=== PATIENT | female | born 1940 | race Caucasian/White ===

== ENCOUNTER → 2017-08-30 05:00 | Outpatient (REF) | payer MEDICARE, SELFPAY | LOC: OLS.DANBUR 05:00 | PROVIDERS: Visit Provider Internal Medicine | DX: E03.9 Hypothyroidism, unspecified (principal) | CPT/HCPCS: 36415; 84443 ==

== ENCOUNTER → 2017-11-01 05:00 | Outpatient (REF) | payer MEDICARE, SELFPAY ==
[2017-11-01 09:30] LABS: Thyroid Stim Hormone (TSH) 2.76 uIU/mL (0.358-3.74)
== END ==
LOC: OLS.DANBUR 05:00
PROVIDERS: Visit Provider Internal Medicine
DX: E03.9 Hypothyroidism, unspecified (principal)
CPT/HCPCS: 36415; 84443

== ENCOUNTER → 2017-12-21 05:00 | Outpatient (REF) | payer MEDICARE, SELFPAY ==
[2017-12-21 09:11] LABS: Hematocrit 34.4 % (37-47); Hemoglobin 10.7 g/dl (12.0-15.0); Mean Corp Hgb Conc 31.1 g/gl (32-36); Mean Corpuscular Hgb 27.9 pg (27.0-32.0); Mean Corpuscular Volume 89.6 fL (81-99); Mean Platelet Vol. 11.5 fl (6.2-12.0); Platelet Count 236 K/mm3 (150-450); RBC Distribution Width CV 15.1 % (11.6-14.6); RBC Distribution Width SD 49.6 fl (35.1-43.9); Red Blood Count 3.84 M/mm3 (4.2-5.4); White Blood Count 4.9 K/mm3 (4.4-11.0)
[2017-12-21 09:19] LABS: Scan Indicated on CBC? Y/N NO
[2017-12-21 09:23] LABS: ALB/GLOB Ratio 0.7 RATIO (0.9-2.4); AST(SGOT) 12 U/L (15-37); Alanine Aminotransfer ALT/SGPT 10 U/L (13-56); Albumin, Serum 2.3 g/dL (3.2-5.0); Alkaline Phosphatase 57 U/L (45-117); Anion Gap 8 (5-15); BUN 17 mg/dL (7-18); BUN/Creat Ratio 32.8 RATIO (10-20); Calcium,Total 7.6 mg/dL (8.5-10.1); Chloride 107 mmol/L (98-107); Cholesterol 113 mg/dL (200); Creatinine, Serum 0.52 mg/dL (0.55-1.02); EST Glomerular Filtration Rate 122 mL/min (>60); Est Glom Filt Rate - Afr Amer 147 mL/min (>60); Globulin 3.3 g/dL (2.2-4.2); Glucose 67 mg/dL (74-106); High Density Lipoprotein 45 mg/dL; Potassium 4.2 mmol/L (3.5-5.1); Protein, Total 5.6 g/dL (6.4-8.2); Sodium Level 143 mmol/L (136-145); Thyroid Stim Hormone (TSH) 2.47 uIU/mL (0.358-3.74); Triglycerides 71 mg/dL; Very Low Density Lipoprotein 14 mg/dL (5-40)
== END ==
LOC: OLS.DANBUR 05:00
PROVIDERS: Visit Provider Internal Medicine
DX: I10 Essential (primary) hypertension (principal); E78.5 Hyperlipidemia, unspecified; E03.9 Hypothyroidism, unspecified
CPT/HCPCS: 36415; 80053; 80061; 84443; 85027

== ENCOUNTER → 2017-12-22 10:25 | Outpatient (REF) | payer MEDICARE, SELFPAY ==
[2017-12-22 11:43] LABS: BNP,B-Type NATRIURETIC PEPTIDE 13.2 pg/mL (0-100)
== END ==
LOC: OLS.DANBUR 10:25
PROVIDERS: Visit Provider Internal Medicine
DX: J90 Pleural effusion, not elsewhere classified (principal)
CPT/HCPCS: 36415; 83880

== ENCOUNTER → 2018-01-04 05:00 | Outpatient (REF) | payer MEDICARE, SELFPAY ==
[2018-01-04 08:21] LABS: Anion Gap 6 (5-15); BUN 24 mg/dL (7-18); BUN/Creat Ratio 39.3 RATIO (10-20); Calcium,Total 8.2 mg/dL (8.5-10.1); Chloride 104 mmol/L (98-107); Creatinine, Serum 0.61 mg/dL (0.55-1.02); EST Glomerular Filtration Rate 101 mL/min (>60); Est Glom Filt Rate - Afr Amer 122 mL/min (>60); Glucose 77 mg/dL (74-106); Potassium 3.9 mmol/L (3.5-5.1); Sodium Level 142 mmol/L (136-145)
== END ==
LOC: OLS.DANBUR 05:00
PROVIDERS: Visit Provider Internal Medicine
DX: J90 Pleural effusion, not elsewhere classified (principal)
CPT/HCPCS: 36415; 80048

== ENCOUNTER → 2018-01-10 05:00 | Outpatient (REF) | payer MEDICARE, SELFPAY ==
[2018-01-10 08:41] LABS: Albumin, Serum 2.5 g/dL (3.2-5.0)
[2018-01-10 08:52] LABS: Valproic Acid (Depakene) Level 61 ug/mL (50-100)
== END ==
LOC: OLS.DANBUR 05:00
PROVIDERS: Visit Provider Internal Medicine
DX: I10 Essential (primary) hypertension (principal); E78.5 Hyperlipidemia, unspecified; E03.9 Hypothyroidism, unspecified; F03.90 Unspecified dementia, unspecified severity, without behavioral disturbance, psychotic disturbance, mood disturbance, and anxiety
CPT/HCPCS: 36415; 80164; 82040

== ENCOUNTER → 2018-04-05 05:00 | Outpatient (REF) | payer MEDICARE, SELFPAY ==
[2018-04-05 08:23] LABS: Anion Gap 6 (5-15); BUN 21 mg/dL (7-18); Calcium,Total 8.2 mg/dL (8.5-10.1); Chloride 109 mmol/L (98-107); Creatinine, Serum 0.68 mg/dL (0.55-1.02); EST Glomerular Filtration Rate 89 mL/min (>60); Est Glom Filt Rate - Afr Amer 108 mL/min (>60); Glucose 85 mg/dL (74-106); Potassium 4.3 mmol/L (3.5-5.1); Sodium Level 145 mmol/L (136-145)
== END ==
LOC: OLS.DANBUR 05:00
PROVIDERS: Visit Provider Internal Medicine
DX: I10 Essential (primary) hypertension (principal); E78.5 Hyperlipidemia, unspecified; E03.9 Hypothyroidism, unspecified; F03.90 Unspecified dementia, unspecified severity, without behavioral disturbance, psychotic disturbance, mood disturbance, and anxiety
CPT/HCPCS: 36415; 80048

== ENCOUNTER 2018-06-27 23:27 | Inpatient (IN) | payer MEDICARE, SELFPAY ==
[2018-06-27 23:33] VITALS: BP 157/92; PULSE 87; RESP 16; TEMP 37; O2SAT 91; BMI 35.2
[2018-06-27 23:37] VITALS: O2SAT 90
[2018-06-28] VITALS (11 sets, daily range): BP systolic 107–166; BP diastolic 59–93; PULSE 71–108; RESP 16–20; TEMP 36.4–37.7; O2SAT 87–97; BMI 36.5; BMI 36.6
--- NOTE | 2018-06-28 00:09 | RAD_ITS ---
STUDY: X-RAY CHEST REASON FOR EXAM: Female, 77 years old. Shortness of breath TECHNIQUE: Single frontal view of the chest. COMPARISON: May 23, 2017. FINDINGS: No pneumothorax. No pleural effusion. Bilateral basilar atelectasis/scarring. No focal consolidation. Chronic lung changes. Normal size heart. Aortic calcifications. There are diffuse degenerative changes of the visualized thoracic spine. There is degenerative osteoarthritis of the bilateral shoulders. Old rib fractures. There is no demonstrated abnormality of the visualized soft tissue structures of the upper abdomen. RAD/Chest 1 View (Portable) IMPRESSION: Chronic lung changes. Basilar atelectasis/scarring. No focal consolidation. Electronically Signed: Eliseo Oliver, at 1:16 EDT Tel , Service support ,
--- NOTE | 2018-06-28 00:10 | EKG12_ITS ---
Test Reason : SOB Blood Pressure : / mmHG Vent. Rate : 087 BPM Atrial Rate : 087 BPM P-R Int : 192 ms QRS Dur : 070 ms QT Int : 386 ms P-R-T Axes : 039 -32 021 degrees QTc Int : 464 ms Normal sinus rhythm Left axis deviation Inferior infarct , age undetermined Abnormal ECG Confirmed by CHLOE BRIZUELA, ATUL ([id number]), research editor TANGELA CAM ([id number]) on 06/28/2018 1:37:39 PM Referred By: ESTHER Confirmed By:ATUL CORONA MD
[2018-06-28] MEDS: Ipratropium/Albuterol Sulfate 3 ML AMPUL.NEB INHALATION (00:17)
[2018-06-28 00:30] LABS: Absolute Lymphocyte Count 2.58 X10^3/ul (0.83-4.51); Absolute Neutrophil Count 3.7 X10^3/uL (2.0-7.7); Basophil# 0.04 X10^3/uL; Basophil% 0.5 % (0-1); Eosinophil# 0.48 X10^3/uL; Eosinophils% 6.2 % (0-5); Hematocrit 36.8 % (37-47); Lymphocyte # 2.58 X10^3/ul (4.0); Lymphocyte % 33.5 % (19-41); Mean Corp Hgb Conc 32.6 g/gl (32-36); Mean Corpuscular Hgb 27.8 pg (27.0-32.0); Mean Corpuscular Volume 85.2 fL (81-99); Mean Platelet Vol. 10.2 fl (6.2-12.0); Monocyte# 0.85 X10^3/uL; Neutrophil # 3.73 X10^3/uL (2.7-7.7); Neutrophil % 48.5 % (47-70); Platelet Count 244 K/mm3 (150-450); RBC Distribution Width CV 14.9 % (11.6-14.6); RBC Distribution Width SD 45.7 fl (35.1-43.9); Red Blood Count 4.32 M/mm3 (4.2-5.4); White Blood Count 7.7 K/mm3 (4.4-11.0)
[2018-06-28 00:31] LABS: POSITIVE COUNT NO; POSITIVE DIFFERENTIAL NO; POSITIVE MORPHOLOGY NO
[2018-06-28 00:50] LABS: Anion Gap 8 (5-15); BUN 23 mg/dL (7-18); BUN/Creat Ratio 19.2 RATIO (10-20); Calcium,Total 8.3 mg/dL (8.5-10.1); Chloride 103 mmol/L (98-107); EST Glomerular Filtration Rate 46 mL/min (>60); Est Glom Filt Rate - Afr Amer 56 mL/min (>60); Glucose 94 mg/dL (74-106); Potassium 4.6 mmol/L (3.5-5.1); Sodium Level 140 mmol/L (136-145)
[2018-06-28 01:10] LABS: BNP,B-Type NATRIURETIC PEPTIDE 24.2 pg/mL (0-100)
--- NOTE | 2018-06-28 01:14 | CT_ITS ---
STUDY: CTA CHEST REASON FOR EXAM: Female, 77 years old. Shortness of breath RADIATION DOSAGE (If Supplied By Facility): CTDIvol = ( 13.37 ) mGy, DLP = ( 615.75 ) mGycm TECHNIQUE: The examination was performed with the intravenous administration of 75ML ml of Isovue 370 contrast material. Post-processing of the angiographic images was performed, with multiplanar reformation and 3D reconstruction. Individualized dose optimization techniques were used for this CT. COMPARISON: None. FINDINGS: Normal enhancement of the main pulmonary artery and right and left pulmonary arteries. Normal enhancement of the bilateral peripheral pulmonary arteries. There is no demonstrated pulmonary embolism. Described disease of the aorta and branching vessels. There is moderate narrowing of the left subclavian artery. There is severe narrowing of the origin of the celiac artery. Possible median arcuate ligament syndrome. Clinical correlation is recommended. There is no demonstrated aortic dissection. Normal heart and pericardium. Coronary artery calcifications. Nonspecific subcentimeter short axis mediastinal and hilar lymph nodes. No pneumothorax. Areas of atelectasis/scarring. Small left pleural effusion and small right pleural effusion. There is adjacent atelectasis/infiltrate. No focal consolidation. No pulmonary nodules greater than 3 mm identified. There are degenerative changes of thoracic spine. Old rib fractures. There is a large hiatal hernia. CT/CTA Chest W/WO Contrast IMPRESSION: No pulmonary embolism. Atherosclerotic disease of the aorta without aneurysm or dissection. 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 Small bilateral pleural effusions with adjacent atelectasis/infiltrates. No focal consolidation. Large hiatal hernia. Other findings as above. Electronically Signed: Eliseo Oliver, at 4:22 EDT Tel , Service support ,
[2018-06-28] MEDS: MethylPREDNISolone 125 MG/2 ML Vial IV (01:58)
[2018-06-28] MEDS: DiphenhydrAMINE 50 MG/ML Syringe 25 MG IV (01:58)
--- NOTE | 2018-06-28 04:36 | ED.DCSUM_ITS ---
- ER Visit Summary Date of Service: 06/28/18 Chief Complaint: Wheezing History of Present Illness: The patient is a 77 F who presents with chief complaint of wheezing. She is a very poor informant. History from the assisted living, medics, nursing triage, and history provided to me are all inconsistent. The history provided to me was that she has had wheezing for 1 month. She denies feeling short of breath. She denies cough congestion rhinorrhea. She did note some leg swelling but states this is been unchanged for a year. The assisted living facility had reported that they heard decreased breath sounds and will concern for pleural effusion and that she had 3 + pitting edema of the right leg only. EMS had reported no edema. She had reported to EMS that she is very short of breath yet denied this to me. Physical Examination: Pulse ox initially 91% on room air vitals otherwise markable Moist mucous membranes Heart regular rate and rhythm Lungs are clear I do not appreciate rales rhonchi or wheezing I do not appreciate diminished sounds Abdomen is soft and nontender Patient does have bilateral lower extremities symmetric pitting edema Alert Test Results: EKG shows sinus rhythm at a rate of 87. Labs notable for BUN 23 creatinine 1.2. Troponin normal. BNP normal. Chest x-ray was read as chronic changes and bibasilar atelectasis versus scarring. CTA of the chest shows no evidence of pulmonary embolism there are small bilateral effusions with adjacent atelectasis or infiltrate. Emergency Department Course and Treatment: Laboratory studies were unremarkable. She has no evidence of pulmonary edema on chest x-ray and her BNP was normal. Given her limited mobility edema and hypoxia this raise concern for possible pulmonary embolism so a CTA of the chest was ordered. Patient does have a history of prior hives with IV dye so she was pretreated with IV Solu-Medrol Benadryl. CTA showed small bilateral effusions with adjacent atelectasis versus infiltrate. She does not have infectious symptoms such as productive cough fever or leukocytosis but given possible infiltrate she was covered with Rocephin and azithromycin for possible community-acquired pneumonia. She was taken off of oxygen and quickly desaturated down to 87% so I do believe she will require admission. Patient to be discussed with hospitalist and admitted. Treatment Plan: [] Disposition: Admit Impression: Hypoxia Pleural effusions Possible community acquired pneumonia This note was generated with OpenTextation software. It may contain incorrect words, spelling, and punctuation that were not noted in review of the chart prior to signing ED Disposition - Plan for ED Patient: Chief Complaint: Shortness of Breath Referrals: Ryan Schumacher MD [Primary Care Provider] -
[2018-06-28] MEDS: Ceftriaxone 1 GM/50 ML BAG IV (04:50)
--- NOTE | 2018-06-28 04:53 | ED.RN ---
THIS NURSE AND DR NGUYỄN ATTEMPTED TO TAKE PATIENT OFF OF THE 3 LITERS OF OXYGEN DUE TO THE FACT THAT THE PATIENT DOES NOT WEAR OXYGEN ON A DAILY BASIS. THE PATIENT WAS 93% ON 3 L AND WHEN TAKEN OFF THE PATIENT DROPPED TO 87% ON ROOM AIR. THE PATIENT WAS THEN PUT BACK ON THE 3 L
--- NOTE | 2018-06-28 06:03 | PCM.HP.STD ---
Problem List (1) Anemia due to blood loss Status: Inactive (2) Closed right hip fracture Status: Inactive Comment: S/P ORIF right hip on 05/25/17 (3) Fall Status: Inactive (4) Hyperparathyroidism Status: Chronic Comment: PTH is 140 on 05/25 History of Present Illness Date of Admission: 06/28/18 Chief Complaint: Low oxygen saturation ?1 day The patient is a 77 year old F skilled nursing patient with a significant history of bilateral hip replacement; dementia; bipolar; hypertension; hypothyroidism; osteoporosis; hypercholesterolemia; hyperlipidemia chronic lymphedema of legs who was brought to the emergency department because of hypoxia. Per EMS records her oxygen saturation was 81% on room air requiring non-rebreather mask. At the emergency department on room air the patient was 87% and she required oxygen by nasal cannula to maintain appropriate oxygen saturation. Reportedly patient was having wheezing at a skilled nursing. However emergency department doctor did not auscultate any wheezing on examination. As part of the workup the patient received CTPA and because of allergy to contrast she was premedicated with steroid and Benadryl. Emergency room doctor reported that skilled nursing staff heard decreased breath sounds and with concern about pleural effusion; and also patient had 3+ pitting edema of the right leg only. Patient is not forthcoming with history but she reports that she has been wheezing. Past Medical History Past Medical History (Chronic Problems): Chronic Problems Osteoarthritis (Chronic) Hypokalemia (Chronic) Hyperlipidemia (Chronic) Hyperparathyroidism (Chronic) PTH is 140 on 05/25 Insomnia (Chronic) Osteoporosis (Chronic) HTN (hypertension) (Chronic) Bipolar disorder (Chronic) Dyslipidemia (Chronic) Hypothyroidism (Chronic) Depression (Chronic) Allergies mold Allergy (Verified 05/23/17 20:25) Unknown Penicillins Allergy (Verified 05/23/17 20:25) Unknown IVP DYE Allergy (Uncoded 05/23/17 20:25) Hives Home Medications: Ambulatory Orders Medication Instructions Recorded Alendronate Sodium [Fosamax] 70 mg PO Q7D@69905/14/16 Aspirin [Aspirin, Baby] 81 mg PO DAILY@79905/14/16 Calcium Carbonate/Vitamin D3 1 each PO DAILY 05/14/16 [Calcium 600-Vit D3 200 Tablet] Furosemide [Lasix] 40 mg PO DAILY 05/14/16 Polyethylene Glycol 3350 [Miralax] 17 gm PO PRN PRN 05/14/16 Potassium Chloride [Klor-Con] 20 meq PO DAILY 05/14/16 Simvastatin [Zocor] 20 mg PO QHS 05/14/16 Vit A/Vit C/Vit E/Zinc/Copper 1 each PO DAILY 05/14/16 [Preservision Areds Softgel] traZODone [Desyrel] 50 mg PO QHS 05/14/16 Acetaminophen [Tylenol] 650 mg PO Q4H PRN PRN 03/27/17 Citalopram [Celexa] 10 mg PO DAILY 03/27/17 Olanzapine [Zyprexa Zydis] 1 tab PO DAILY 03/27/17 Levothyroxine [Synthroid] 112 mcg PO DAILY 05/23/17 Loperamide [Imodium] 2 mg PO Q2H PRN PRN 05/23/17 Magnesium Hydroxide [Milk of 30 ml PO DAILY PRN PRN 05/23/17 Magnesia] Divalproex Sodium 500 mg PO QHS 05/24/17 Omeprazole [Omeprazole] 20 mg PO DAILY 06/28/18 Surgical History: total hip arthroplasty, - - hip replacement Psychiatric History: Bipolar, Depression, - - unspecified APPETIZER PACKER History: No pertinent APPETIZER PACKER history Lives: Care Home Smoking Status: Never smoker - *Family History Maternal History Items: No pertinent history Paternal History Items: No pertinent history Review of Systems Constitutional: Denies: Chills, Fever, Weight Change HEENT: Denies: Head Aches, Sinus Congestion, Sinus Drainage Cardiovascular: Denies: Chest Pain, Palpitations Respiratory: Reports: Wheezing. Denies: Cough, Shortness of breath at rest, Sputum production Gastrointestinal: Denies: Abdominal Pain, Nausea, Vomiting Genitourinary: Denies: Dysuria Musculoskeletal: Denies: Joint Pain, Joint Tenderness Skin: Denies: Rash, Wounds Neurological: Denies: Numbness, Tingling, Focal weakness Psychiatric: Denies: Anxiety, Depression, Homicidal Ideations, Suicidal Ideations Hematologic/ Lymphatic: Denies: Easy Bruising, Easy Bleeding VTE Information - Inpt Only VTE Present on Admission: No VTE Mechan Device Prophylaxis: None VTE Pharm Prophylaxis ordered?: Yes - Physical Exam General: Alert, Oriented x3, - HEENT: Atraumatic, PERRLA, EOMI, Normocephalic Neck: Supple, No JVD, Negative Carotid Bruits Lungs: Clear to auscultation, Diminished Cardiovascular: Regular rate, No murmurs Abdomen: Bowel Sounds Present, Soft, Non Tender Extremities: No edema, Capillary Refill Less than 3 Seconds Skin: No rashes, No breakdown Musculoskeletal: No Tenderness to Palpation of Joints or Extremities Neurological: Cranial nerves II-XII grossly intact Psych/Mental Status: Normal Affect, Appropriate Vital Signs Temp Pulse Resp BP Pulse Ox 98.6 F 71 16 107/64 87 06/27/18 23:33 06/28/18 04:56 06/28/18 04:56 06/28/18 04:56 06/28/18 04:56 Assessment/Plan The patient is a 77 year old F skilled nursing patient with a significant history of dementia; bipolar; hypertension; hypothyroidism; osteoporosis; hypercholesterolemia; hyperlipidemia chronic lymphedema with hypoxia of unclear etiology. Acute hypoxemic respiratory failure. Patient presented with oxygen saturation below 90 and requiring oxygen supplementation. The etiology of her hypoxia is not clear at this point. Her BNP was only 24.2 Oxygen saturation on 2 L while at the emergency department was about 94%. Chest x-ray showed chronic lung changes. Basilar atelectasis/scarring with no focal consolidation. Her chest CT independently reviewed showed only small bilateral pleural effusion that should not be able to cause this degree of hypoxia. Echocardiogram ordered to investigate whether the patient has some degree of pulmonary hypertension. Her last echocardiogram on file was in 2014 and at that time it was unremarkable except for some mild tricuspid valve insufficiency. Albuterol as needed for shortness of breath/wheezing. The patient received a steroid at emergency department not because she was wheezing but for pretreatment before receiving IV contrast. MARY Creatinine on admission was Baseline creatinine is Lasix held. Gentle IV hydration Urinary studies ordered: Urine creatinine, urine sodium and urine urea ordered Chronic leg edema Right leg appears bigger than left. Consistent with pitting edema. No further tests ordered at this time. Hypothyroidism Synthroid continued Bipolar Divalproex continued Olanzapine and Celexa continued Osteoporosis Alendronate held while inpatient. Continue on discharge Calcium carbonate with vitamin D continued Hyperlipidemia Statin continued DVT prophylaxis with subcutaneous heparin Code Visit Inpatient E&M: 47752 Init Hosp L3
--- NOTE | 2018-06-28 06:12 | NURSING ---
Whitney Lara called to check on pt. I believe nurse's name was Nilda. Advised that pt was just now getting admitted for hypoxia. She advised that they sent the pt in the ER around 2300.
--- NOTE | 2018-06-28 07:03 | ECHOD_ITS ---
Reason For Study: Hypoxia Procedure This was a 2D Doppler, Color Flow transthoracic echocardiogram. Technically difficult study, patient had a difficult time staying on her left side for testing. Exam performed portable in patient room. Left Ventricle Normal LV size. Moderate concentric left ventricular hypertrophy. Left ventricular systolic function is normal. The estimated ejection fraction is 65 %. No regional wall motion abnormalities noted. Right Ventricle Normal RV size. Normal systolic function. Atria Normal left atrium. Normal right atrium. Mitral Valve Normal mitral valve. Tricuspid Valve Normal tricuspid valve. Mild tricuspid valve insufficiency. Aortic Valve Trisinus/trileaflet aortic valve. Pulmonic Valve Normal pulmonic valve. Great Vessels Normal aortic root. The pulmonary artery is normal size. Normal inferior vena cava. Pericardium/Pleural No pericardial effusion. MMode/2D Measurements & Calculations LVIDd: 3.2 cm IVSd: 1.5 cm Ao root diam: 3.4 cm LVIDs: 2.0 cm LVPWd: 1.3 cm LA dimension: 3.2 cm FS: 38.0 % Doppler Measurements & Calculations Ao V2 max: 169.5 cm/sec LV V1 max: 141.4 cm/sec PA V2 max: 150.2 cm/sec Ao max P.5 mmHg LV V1 max P.0 mmHg Ao V2 mean: 120.0 cm/sec LV V1 mean P.4 mmHg Ao mean P.5 mmHg LV V1 mean: 98.0 cm/sec Ao V2 VTI: 32.5 cm LV V1 VTI: 26.2 cm Interpretation Summary Normal LV size. Moderate concentric left ventricular hypertrophy. Left ventricular systolic function is normal. The estimated ejection fraction is 65 %. Mild tricuspid valve insufficiency. Compared to prior study, there is no significant change. Ordering Physician: Nahid López Referring Physician: Ryan Schumacher Performed By: Gary Tavera RCS
[2018-06-28] MEDS: 0.9% Normal Saline 1,000 ML 75 ML IV ×2 (08:15→21:12)
[2018-06-28] MEDS: Levothyroxine 112 MCG Tablet PO (08:30)
[2018-06-28] MEDS: Calcium Carb/Vitamin D 1 TABLET Tablet PO (08:32)
[2018-06-28] MEDS: Aspirin 81 MG TAB.CHEW PO (08:32)
[2018-06-28 08:59] LABS: Urine Sodium 24 mmol/L (Not Establ.)
[2018-06-28 09:04] LABS: Urea Nitrogen, Urine 619 mg/dL (NO RANGE EST.)
--- NOTE | 2018-06-28 09:33 | CASEMGMT ---
RN CM Note: Pt presented to ER with hypoxia, wheezing. Pt presently on 3L NC, wears 2L NC @ Assisted Living. SW referral for dc planning to ANAID Barnes regarding ability to return to Assisted living vs needing higher level of care. PT/OT ordered, evaluations pending. Zeferino KERNSN RN ACM
--- NOTE | 2018-06-28 09:34 | CASEMGMT ---
Social Work Note Pt is listed as being from [facility]. SW in to speak with pt and pt's niece Shani who is HCPOA for pt. Pt has history of dementia. Shani confirms that pt is from [facility] and the plan is for pt to return there at discharge. Shani states that she is going out of town today and will be back Monday. Shani provided additional contact information for pt's other niece Jacki Hair who according to Shani is also HCPOA for pt. SW witness pt give permission for [facility] to call Jacki Bellamy in the event Shani can't be reached or can't make it to [facility]. Jacki Bellamy # [phone]. Green sheet on chart. Plan: Pt to return to [facility] when medically cleared Claudia Johnson WARP TESTER, SLAB POLISHER
[2018-06-28 10:41] LABS: Allen Test POS; Base Excess 7 mmol/L (-2 to +2); Bicarbonate 30.6 mmol/L (22-26); Blood Gas Specimen Type ART; O2 Delivery Device Nasal Can; PO2 70 mmHG (75-100); SITE L Radial; SO2 95 % (95-99); Time Given 1035; Total Carbon Dioxide 32 mmol/L; pCO2 42.8 mmHg (35-45); pH 7.46 (7.35-7.45)
[2018-06-28] MEDS: Citalopram 10 MG Tablet PO (11:03)
[2018-06-28] MEDS: Pantoprazole Sodium 20 MG Tablet PO (11:03)
[2018-06-28] MEDS: OLANZapine 5 MG/TAB TAB.RAPDIS PO (11:03)
[2018-06-28] MEDS: Heparin Injection (Vial) 5,000 UNIT/ML VIAL 5000 UNIT SC ×2 (11:04→21:12)
--- NOTE | 2018-06-28 11:50 | PCM.PROGNOTE ---
Subjective: Pleasantly confused. POA at bedside. Still requires O2. Per POA pt does not appear different than normal. Does not use o2 normally. No SOB. No Cough. No fevers or chills. POA agreeable to either DC or keeping overnight. Chronic edema somewhat worse than normal, but POA feels this is 2/2 [place] not wrapping the legs appropriately. - Physical Exam General: Alert, Oriented x3, Cooperative HEENT: Atraumatic, PERRLA, EOMI, Normocephalic Neck: Supple, No JVD, Negative Carotid Bruits Lungs: Clear to auscultation, Diminished Cardiovascular: Regular rate, No murmurs Abdomen: Bowel Sounds Present, Soft, Non Tender Extremities: Capillary Refill Less than 3 Seconds, Edema - 2-3 + pitting edema. Skin: No rashes, No breakdown Musculoskeletal: No Tenderness to Palpation of Joints or Extremities Neurological: Cranial nerves II-XII grossly intact Psych/Mental Status: Normal Affect, Appropriate Vital Signs Temp Pulse Resp BP Pulse Ox 98.5 F 90 20 H 166/93 H 91 06/28/18 06:28 06/28/18 06:28 06/28/18 06:28 06/28/18 06:28 06/28/18 10:15 Oxygen Flow Rate (L/min) 3 Oxygen Delivery Method Nasal Cannula Weight: 187 lb 2.759 oz Body Mass Index (BMI) 36.5 Laboratory Tests Past 24 Hrs 06/28/18 06/28/18 06/28/18 08:30 08:30 08:30 Specimen Type Sample Site pH Bicarbonate Actual POC Total CO2 Base Excess O2 Saturation ABG pCO2 ABG pO2 Rao Test O2 Delivery Device Liter Flow Blood Gas Notified Whom Blood Gas Notified Time Ur Random Sodium 24 Urine Creatinine 99.60 Urine Urea Nitrogen 619 06/28/18 10:36 Specimen Type ART Sample Site L Radial pH 7.46 H Bicarbonate Actual 30.6 H POC Total CO2 32 Base Excess 7 H O2 Saturation 95 ABG pCO2 42.8 ABG pO2 70 L Rao Test POS O2 Delivery Device Nasal Can Liter Flow 3.0 Blood Gas Notified Whom [facility] Blood Gas Notified Time 1035 Ur Random Sodium Urine Creatinine Urine Urea Nitrogen Medical Necessity - Tobacco Use Smoking Status: Never smoker Assessment/Plan 1. Acute hypoxia - likely atelectasis. No infectious etiology suspected. CTA atelectasis / small pl effusions. BNP normal. No leukocytosis or fever. No subjective cough or SOB. Resp panel pending. -IS, duonebs q6hWA -pt bedbound and with declining function 2/2 dementia x3 years -DNC -Will need o2 at assisted living. 2. Debility, bedbound, recent hip fx and repair. Continue ptot, but pt bedbound and unlikely to change. 3. Dementia - function decline. Pt hospice appropriate. 4. HTN - stable 5. Bipolar - continue home meds 6. Hypothyroid - synthroid 7. HLD - statin DVT ppx: heparin DC planning: back to [place] when appropriate. This patient was seen by Ruiz Mathur PA-C under the supervision of Doctor Morley.
--- NOTE | 2018-06-28 12:00 | PN_ITS ---
Subjective: Pleasantly confused. POA at bedside. Still requires O2. Per POA pt does not appear different than normal. Does not use o2 normally. No SOB. No Cough. No fevers or chills. POA agreeable to either DC or keeping overnight. Chronic edema somewhat worse than normal, but POA feels this is 2/2 [place] not wrapping the legs appropriately. - Physical Exam General: Alert, Oriented x3, Cooperative HEENT: Atraumatic, PERRLA, EOMI, Normocephalic Neck: Supple, No JVD, Negative Carotid Bruits Lungs: Clear to auscultation, Diminished Cardiovascular: Regular rate, No murmurs Abdomen: Bowel Sounds Present, Soft, Non Tender Extremities: Capillary Refill Less than 3 Seconds, Edema - 2-3 + pitting edema. Skin: No rashes, No breakdown Musculoskeletal: No Tenderness to Palpation of Joints or Extremities Neurological: Cranial nerves II-XII grossly intact Psych/Mental Status: Normal Affect, Appropriate Vital Signs Temp Pulse Resp BP Pulse Ox 98.5 F 90 20 H 166/93 H 91 06/28/18 06:28 06/28/18 06:28 06/28/18 06:28 06/28/18 06:28 06/28/18 10:15 Oxygen Flow Rate (L/min) 3 Oxygen Delivery Method Nasal Cannula Weight: 187 lb 2.759 oz Body Mass Index (BMI) 36.5 Laboratory Tests Past 24 Hrs 06/28/18 06/28/18 06/28/18 08:30 08:30 08:30 Specimen Type Sample Site pH Bicarbonate Actual POC Total CO2 Base Excess O2 Saturation ABG pCO2 ABG pO2 Rao Test O2 Delivery Device Liter Flow Blood Gas Notified Whom Blood Gas Notified Time Ur Random Sodium 24 Urine Creatinine 99.60 Urine Urea Nitrogen 619 06/28/18 10:36 Specimen Type ART Sample Site L Radial pH 7.46 H Bicarbonate Actual 30.6 H POC Total CO2 32 Base Excess 7 H O2 Saturation 95 ABG pCO2 42.8 ABG pO2 70 L Rao Test POS O2 Delivery Device Nasal Can Liter Flow 3.0 Blood Gas Notified Whom [facility] Blood Gas Notified Time 1035 Ur Random Sodium Urine Creatinine Urine Urea Nitrogen Medical Necessity - Tobacco Use Smoking Status: Never smoker Assessment/Plan 1. Acute hypoxia - likely atelectasis. No infectious etiology suspected. CTA atelectasis / small pl effusions. BNP normal. No leukocytosis or fever. No subjective cough or SOB. Resp panel pending. -IS, duonebs q6hWA -pt bedbound and with declining function 2/2 dementia x3 years -DNC -Will need o2 at assisted living. 2. Debility, bedbound, recent hip fx and repair. Continue ptot, but pt bedbound and unlikely to change. 3. Dementia - function decline. Pt hospice appropriate. 4. HTN - stable 5. Bipolar - continue home meds 6. Hypothyroid - synthroid 7. HLD - statin DVT ppx: heparin DC planning: back to [place] when appropriate. This patient was seen by Ruiz Mathur PA-C under the supervision of Doctor Morley.
[2018-06-28] MEDS: Polyethylene Glycol 3350 17 GM PACKET PO (12:23)
--- NOTE | 2018-06-28 15:16 | CHAPLAIN ---
Type of Pastoral Visit _x__ Initial Visit ___ Follow-up Visit ___ On-call Visit ___ General Patient Visit ___ Spiritual Assessment ___ Family Conference ___ Bereavement ___ Rapid Response ___ Code Blue ___ Other (describe below) Pastoral Care Referral From _x__ Patient ___ Family ___ Nurse ___ Physician ___ Nephrologist ___ Buncher Machine ___ Other (describe below) Sacrament/Intervention _x__ Active listening ___ Anointing ___ Presybeterian ___ Bereavement ___ Communion ___ Radha exploration ___ ___ Life review _x__ Prayer ___ Reconciliation ___ Sacrament of Sick ___ Supportive presence ___ Wedding ___ Other (describe below) Pastoral Comments patient was clear about her desire to return to [place]; pt however had difficulty articulating answers to questions poised to her; pt could not describe her health problem that brought her to hospital; patient is of the [place] radha and welcomed a prayer
--- NOTE | 2018-06-28 15:22 | CASEMGMT ---
Addendum entered by Claudia Johnson 06/28/18 15:41: Pt is currently on 3 Liters continuous Oxygen. ANAID placed a call to [facility] and spoke with Zulay who states that Oxygen needs to be set up before patient returns. ANAID updated KIRAN Fuentes of this and physician of this. KIRAN Fuentes informed this worker that pt will need transportation to return to [facility] tomorrow. Original Note: Social Work Note Per progress notes, pt will need Oxygen set up to return to [facility]. ANAID updated KIRAN Richardson of this. ANAID received message from KIRAN Richardson that states she ordered the Oxygen test and most likely the Oxygen will have to be set up tomorrow. Pt just came into the hospital this morning. Plan: Return to [facility]. [employer] to set up Oxygen. Claudia Johnson LEARNING SUPPORT SPECIALIST, MERCHANDISE EXECUTIVE
--- NOTE | 2018-06-28 15:35 | PCM.DC ---
You will use the following diet at home:: No restrictions Your food should be the consistency of: Regular Your liquids should be the consistency of: Regular/Thin Discharge Activity: Return to Normal Activity, - - Continue to use oxygen Allergies/Adverse Reactions: Allergies mold Allergy (Verified 05/23/17 20:25) Unknown Penicillins Allergy (Verified 05/23/17 20:25) Unknown IVP DYE Allergy (Uncoded 05/23/17 20:25) Hives Medications to take at Discharge Alendronate Sodium [Fosamax] 70 mg PO Q7D@0705/14/16 Aspirin [Aspirin, Baby] 81 mg PO DAILY@79905/14/16 Calcium Carbonate/Vitamin D3 [Calcium 600-Vit D3 200 Tablet] 1 each PO DAILY 05/14/16 Furosemide [Lasix] 40 mg PO DAILY 05/14/16 Polyethylene Glycol 3350 [Miralax] 17 gm PO PRN PRN 05/14/16 Potassium Chloride [Klor-Con] 20 meq PO DAILY 05/14/16 Simvastatin [Zocor] 20 mg PO QHS 05/14/16 Vit A/Vit C/Vit E/Zinc/Copper [Preservision Areds Softgel] 1 each PO DAILY 05/14/16 traZODone [Desyrel] 50 mg PO QHS 05/14/16 Acetaminophen [Tylenol] 650 mg PO Q4H PRN PRN 03/27/17 Citalopram [Celexa] 10 mg PO DAILY 03/27/17 Olanzapine [Zyprexa Zydis] 1 tab PO DAILY 03/27/17 Levothyroxine [Synthroid] 112 mcg PO DAILY 05/23/17 Loperamide [Imodium] 2 mg PO Q2H PRN PRN 05/23/17 Magnesium Hydroxide [Milk of Magnesia] 30 ml PO DAILY PRN PRN 05/23/17 Divalproex Sodium 500 mg PO QHS 05/24/17 Albuterol Aerosols [Ventolin Aerosols] 2.5 mg INHALATION Q2H PRN PRN vial.neb. 06/28/18 Ipratropium/Albuterol Sulfate [Duoneb] 3 ml INHALATION Q4HWA.RT ampul.neb 06/28/18 Omeprazole 20 mg PO DAILY 06/28/18 Primary Care Physician: Ryan Schumacher MD [Primary Care Provider] - Please follow up with your Primary Care Physician in: 1 week Test Results: Test results from this visit will be discussed in further detail at your follow-up appointment, if applicable. Proposed Discharge Date: 06/28/18
--- NOTE | 2018-06-28 15:36 | PCM.DC.SUM ---
Discharge Date and Diagnosis Date of Admission: 06/28/18 Date of Discharge: 06/28/18 - Primary Discharge Diagnosis Acute hypoxia 2/2 atelectasis Dementia suspect Alzheimers with progressive decline Recent total hip with debility, bedbound Lymphedema HTN Bipolar disorder Hypothyroidism HLD - Secondary Discharge Diagnosis Chronic Problems Osteoarthritis (Chronic) Hypokalemia (Chronic) Hyperlipidemia (Chronic) Hyperparathyroidism (Chronic) PTH is 140 on 05/25 Insomnia (Chronic) Osteoporosis (Chronic) HTN (hypertension) (Chronic) Bipolar disorder (Chronic) Dyslipidemia (Chronic) Hypothyroidism (Chronic) Depression (Chronic) Hospital Course and Treatment Imaging Results: 06/28/18 07:03 Echo Complete [ECHO] Routine Echo demonstrates normal LV size, moderate LVH, EF 65%, mild TVI CT of the chest CT/CTA Chest W/WO Contrast IMPRESSION: No pulmonary embolism. Atherosclerotic disease of the aorta without aneurysm or dissection. 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 Small bilateral pleural effusions with adjacent atelectasis/infiltrates. No focal consolidation. Large hiatal hernia. Other findings as above. RAD/Chest 1 View (Portable) IMPRESSION: Chronic lung changes. Basilar atelectasis/scarring. No focal consolidation. Operations: None, - - ORIF R hip on 05/25/[address] Villa Procedures: 2-D Echocardiogram Summary of Care Provided: Physical exam on day of discharge: See daily progress note Hospital course: The patient is a 77 year old F with dementia with progressive decline over the last 3 years who presented to the emergency room with hypoxia is noted at [facility]. She was not with increased shortness of breath or cough. Chest x-ray showed atelectasis. CTA of the chest was done which showed atelectasis and small pleural effusions. Beta natruretic peptide was negative. Echocardiogram was obtained and was unremarkable with an EF of 65%. She was admitted to the medical surgical floor and placed on aerosols and given an incentive spirometer. She had waxing and waning mental status. Patient could not remember why she was here and did not remember our conversation. She continued to have no further shortness of breath or cough. She did continue to be hypoxic. She was placed on oxygen and will need to continue this going forward. The patient had a recent total hip repair and has been bedbound ever since. She has very little activity and likely has severe atelectasis. There are no indications of an acute process either infectious or congestive. She was discharged back to assisted living in stable condition. I discussed this with her power of trade mark attorney who was agreeable and did not feel that the patient had any acute process going on either. She understands that the patient has severe dementia progressively worsening over the past 3 years and that this is likely to continue to decline. The patient is DNR CC and will remain at this CODE STATUS at this time. I did order for her to have aerosol therapy at the assisted living along with the oxygen. This may or may not help her, she may ultimately need permanent oxygen to maintain good saturations if she does not use the incentive spirometer and remains bedbound. This patient was seen by Ruiz Mathur PA-C under the supervision of Doctor Morley. [] Discharge Diet: No Restrictions Discharge Activity: Return to Normal Activity, - - Continue to use oxygen Home Medications: Medications to take at Discharge Alendronate Sodium [Fosamax] 70 mg PO Q7D@0705/14/16 Aspirin [Aspirin, Baby] 81 mg PO DAILY@0805/14/16 Calcium Carbonate/Vitamin D3 [Calcium 600-Vit D3 200 Tablet] 1 each PO DAILY 05/14/16 Furosemide [Lasix] 40 mg PO DAILY 05/14/16 Polyethylene Glycol 3350 [Miralax] 17 gm PO PRN PRN 05/14/16 Potassium Chloride [Klor-Con] 20 meq PO DAILY 05/14/16 Simvastatin [Zocor] 20 mg PO QHS 05/14/16 Vit A/Vit C/Vit E/Zinc/Copper [Preservision Areds Softgel] 1 each PO DAILY 05/14/16 traZODone [Desyrel] 50 mg PO QHS 05/14/16 Acetaminophen [Tylenol] 650 mg PO Q4H PRN PRN 03/27/17 Citalopram [Celexa] 10 mg PO DAILY 03/27/17 Olanzapine [Zyprexa Zydis] 1 tab PO DAILY 03/27/17 Levothyroxine [Synthroid] 112 mcg PO DAILY 05/23/17 Loperamide [Imodium] 2 mg PO Q2H PRN PRN 05/23/17 Magnesium Hydroxide [Milk of Magnesia] 30 ml PO DAILY PRN PRN 05/23/17 Divalproex Sodium 500 mg PO QHS 05/24/17 Albuterol Aerosols [Ventolin Aerosols] 2.5 mg INHALATION Q2H PRN PRN vial.neb. 06/28/18 Ipratropium/Albuterol Sulfate [Duoneb] 3 ml INHALATION Q4HWA.RT ampul.neb 06/28/18 Omeprazole 20 mg PO DAILY 06/28/18 Primary Care Physician: Ryan Schumacher MD [Primary Care Provider] - Please follow up with your Primary Care Physician in: 1 week Disposition: Asstd Living/Non-Skill NH Minutes spent on discharge:: 40 Patient Condition:: Stable Medical Necessity - Tobacco Use Smoking Status: Never smoker Meaningful Use Info Meaningful Use Diagnoses (Choose all that apply): None applicable
--- NOTE | 2018-06-28 15:43 | DS.PCM_ITS ---
Discharge Date and Diagnosis Date of Admission: 06/28/18 Date of Discharge: 06/28/18 - Primary Discharge Diagnosis Acute hypoxia 2/2 atelectasis Dementia suspect Alzheimers with progressive decline Recent total hip with debility, bedbound Lymphedema HTN Bipolar disorder Hypothyroidism HLD - Secondary Discharge Diagnosis Chronic Problems Osteoarthritis (Chronic) Hypokalemia (Chronic) Hyperlipidemia (Chronic) Hyperparathyroidism (Chronic) PTH is 140 on 05/25 Insomnia (Chronic) Osteoporosis (Chronic) HTN (hypertension) (Chronic) Bipolar disorder (Chronic) Dyslipidemia (Chronic) Hypothyroidism (Chronic) Depression (Chronic) Hospital Course and Treatment Imaging Results: 06/28/18 07:03 Echo Complete [ECHO] Routine Echo demonstrates normal LV size, moderate LVH, EF 65%, mild TVI CT of the chest CT/CTA Chest W/WO Contrast IMPRESSION: No pulmonary embolism. Atherosclerotic disease of the aorta without aneurysm or dissection. 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 Small bilateral pleural effusions with adjacent atelectasis/infiltrates. No focal consolidation. Large hiatal hernia. Other findings as above. RAD/Chest 1 View (Portable) IMPRESSION: Chronic lung changes. Basilar atelectasis/scarring. No focal consolidation. Operations: None, - - ORIF R hip on 05/25/[address] Villa Procedures: 2-D Echocardiogram Summary of Care Provided: Physical exam on day of discharge: See daily progress note Hospital course: The patient is a 77 year old F with dementia with progressive decline over the last 3 years who presented to the emergency room with hypoxia is noted at [facility]. She was not with increased shortness of breath or cough. Chest x-ray showed atelectasis. CTA of the chest was done which showed atelectasis and small pleural effusions. Beta natruretic peptide was negative. Echocardiogram was obtained and was unremarkable with an EF of 65%. She was admitted to the medical surgical floor and placed on aerosols and given an incentive spirometer. She had waxing and waning mental status. Patient could not remember why she was here and did not remember our conversation. She continued to have no further shortness of breath or cough. She did continue to be hypoxic. She was placed on oxygen and will need to continue this going forward. The patient had a recent total hip repair and has been bedbound ever since. She has very little activity and likely has severe atelectasis. There are no indications of an acute process either infectious or congestive. She was discharged back to assisted living in stable condition. I discussed this with her power of mergers and acquisitions attorney who was agreeable and did not feel that the patient had any acute process going on either. She understands that the patient has severe dementia progressively worsening over the past 3 years and that this is likely to continue to decline. The patient is DNR CC and will remain at this CODE STATUS at this time. I did order for her to have aerosol therapy at the assisted living along with the oxygen. This may or may not help her, she may ultimately need permanent oxygen to maintain good saturations if she does not use the incentive spirometer and remains bedbound. This patient was seen by Ruiz Mathur PA-C under the supervision of Doctor Morley. [] Discharge Diet: No Restrictions Discharge Activity: Return to Normal Activity, - - Continue to use oxygen Home Medications: Medications to take at Discharge Alendronate Sodium [Fosamax] 70 mg PO Q7D@0705/14/16 Aspirin [Aspirin, Baby] 81 mg PO DAILY@0805/14/16 Calcium Carbonate/Vitamin D3 [Calcium 600-Vit D3 200 Tablet] 1 each PO DAILY 03/24 Furosemide [Lasix] 40 mg PO DAILY 05/14/16 Polyethylene Glycol 3350 [Miralax] 17 gm PO PRN PRN 05/14/16 Potassium Chloride [Klor-Con] 20 meq PO DAILY 05/14/16 Simvastatin [Zocor] 20 mg PO QHS 05/14/16 Vit A/Vit C/Vit E/Zinc/Copper [Preservision Areds Softgel] 1 each PO DAILY 05/14 traZODone [Desyrel] 50 mg PO QHS 05/14/16 Acetaminophen [Tylenol] 650 mg PO Q4H PRN PRN 03/27/17 Citalopram [Celexa] 10 mg PO DAILY 03/27/17 Olanzapine [Zyprexa Zydis] 1 tab PO DAILY 03/27/17 Levothyroxine [Synthroid] 112 mcg PO DAILY 05/23/17 Loperamide [Imodium] 2 mg PO Q2H PRN PRN 05/23/17 Magnesium Hydroxide [Milk of Magnesia] 30 ml PO DAILY PRN PRN 05/23/17 Divalproex Sodium 500 mg PO QHS 05/24/17 Albuterol Aerosols [Ventolin Aerosols] 2.5 mg INHALATION Q2H PRN PRN vial.neb. 06/28/18 Ipratropium/Albuterol Sulfate [Duoneb] 3 ml INHALATION Q4HWA.RT ampul.neb 06/28 Omeprazole 20 mg PO DAILY 06/28/18 Primary Care Physician: Ryan Schumacher MD [Primary Care Provider] - Please follow up with your Primary Care Physician in: 1 week Disposition: Asstd Living/Non-Skill NH Minutes spent on discharge:: 40 Patient Condition:: Stable Medical Necessity - Tobacco Use Smoking Status: Never smoker Meaningful Use Info Meaningful Use Diagnoses (Choose all that apply): None applicable
--- NOTE | 2018-06-28 15:50 | CASEMGMT ---
RN HUBER Note. Referral received for possible need for Home Oxygen. [facility] and [facility] are [facility] with insurance. Home oxygen testing request entered into Worklist. RN HUBER spoke with Dr. Morley that oxygen will need to be set up tomorrow due to late request and testing will need completed. Discussed pt was admitted today, still with hypoxia-per Dr. Morley, pulmonary physician will be consulted to see pt tomorrow. -Call to ANAID Barnes and Johana Marino nurse to update on above. Zeferino KERNSN RN ACM
[2018-06-28] MEDS: Atorvastatin Calcium 10 MG Tablet PO (21:12)
[2018-06-28] MEDS: traZODone 50 MG Tablet PO (21:12)
[2018-06-28] MEDS: Divalproex Sodium 250 MG Tablet 500 MG PO (21:12)
[2018-06-28] MEDS: 0.9% NaCl Peripheral Flush Adult/Peds IV (21:14)
[2018-06-29 02:00] VITALS: BP 104/40; PULSE 66; RESP 18; TEMP 37.2; O2SAT 97
[2018-06-29] MEDS: Levothyroxine 112 MCG Tablet PO (05:42)
[2018-06-29] MEDS: Heparin Injection (Vial) 5,000 UNIT/ML VIAL 5000 UNIT SC (05:42)
[2018-06-29 07:57] VITALS: O2SAT 96
[2018-06-29] MEDS: OLANZapine 5 MG/TAB TAB.RAPDIS PO (09:44)
[2018-06-29] MEDS: Aspirin 81 MG TAB.CHEW PO (09:45)
[2018-06-29] MEDS: Pantoprazole Sodium 20 MG Tablet PO (09:45)
[2018-06-29] MEDS: 0.9% Normal Saline 1,000 ML 75 ML IV (09:45)
[2018-06-29] MEDS: Calcium Carb/Vitamin D 1 TABLET Tablet PO (09:45)
[2018-06-29] MEDS: Citalopram 10 MG Tablet PO (09:45)
[2018-06-29 09:58] VITALS: BP 112/56; PULSE 67; RESP 18; TEMP 36.7; O2SAT 96
--- NOTE | 2018-06-29 10:23 | PCM.CONS.GEN ---
Problem List (1) Hypoxemia Status: Acute (2) Osteoarthritis Status: Chronic (3) Hyperparathyroidism Status: Chronic Comment: PTH is 140 on 05/25 (4) Insomnia Status: Chronic (5) Osteoporosis Status: Chronic (6) HTN (hypertension) Status: Chronic (7) Bipolar disorder Status: Chronic (8) Dyslipidemia Status: Chronic (9) Hypothyroidism Status: Chronic (10) Depression Status: Chronic Reason for Consult Date of Consultation: 06/29/18 Reason for Consultation: Hypoxemia History of Present Illness: The patient is a 77 year old F, with past medical history listed below, who presented to [facility] on 06/28/2018 secondary to wheezing and hypoxemia. Patient reportedly has a history of chronic lymphedema of the legs, but was brought in by EMS from her half-way secondary to hypoxemia. Patient was evaluated in the emergency room and received a steroid and Benadryl. There was some concern for pleural effusion, so patient had a CTPA. Patient was admitted to the floor and initiated on nasal cannula oxygen. Patient reports she has never been on nasal cannula oxygen. Patient is pleasantly confused at this time and not able to provide much history. Patient does deny a daily cough. Patient is not dyspneic or reporting chest pain at this time. Patient does report GERD type symptoms routinely. Patient reports she is nonambulatory at baseline. Most of the history is from the electronic medical record. Patient reportedly was seen by her POA and thought that there was nothing different in her overall appearance. Patient denied any dyspnea during my evaluation. Patient states she has never been on supplemental oxygen previously. Patient has worked in nursing homes in the past, but denies any history of tuberculosis. Unable to obtain a reliable review of systems secondary to mental status otherwise. Past Medical History Past Medical History (Chronic Problems): Chronic Problems Osteoarthritis (Chronic) Hypokalemia (Chronic) Hyperlipidemia (Chronic) Hyperparathyroidism (Chronic) PTH is 140 on 05/25 Insomnia (Chronic) Osteoporosis (Chronic) HTN (hypertension) (Chronic) Bipolar disorder (Chronic) Dyslipidemia (Chronic) Hypothyroidism (Chronic) Depression (Chronic) Allergies mold Allergy (Verified 05/23/17 20:25) Unknown Penicillins Allergy (Verified 05/23/17 20:25) Unknown IVP DYE Allergy (Uncoded 05/23/17 20:25) Hives Home Medications: Ambulatory Orders Medication Instructions Recorded Alendronate Sodium [Fosamax] 70 mg PO Q7D@0700 05/14/16 Aspirin [Aspirin, Baby] 81 mg PO DAILY@0800 05/14/16 Calcium Carbonate/Vitamin D3 1 each PO DAILY 05/14/16 [Calcium 600-Vit D3 200 Tablet] Furosemide [Lasix] 40 mg PO DAILY 05/14/16 Polyethylene Glycol 3350 [Miralax] 17 gm PO PRN PRN 05/14/16 Potassium Chloride [Klor-Con] 20 meq PO DAILY 05/14/16 Simvastatin [Zocor] 20 mg PO QHS 05/14/16 Vit A/Vit C/Vit E/Zinc/Copper 1 each PO DAILY 05/14/16 [Preservision Areds Softgel] traZODone [Desyrel] 50 mg PO QHS 05/14/16 Acetaminophen [Tylenol] 650 mg PO Q4H PRN PRN 03/27/17 Citalopram [Celexa] 10 mg PO DAILY 03/27/17 Olanzapine [Zyprexa Zydis] 1 tab PO DAILY 03/27/17 Levothyroxine [Synthroid] 112 mcg PO DAILY 05/23/17 Loperamide [Imodium] 2 mg PO Q2H PRN PRN 05/23/17 Magnesium Hydroxide [Milk of 30 ml PO DAILY PRN PRN 05/23/17 Magnesia] Divalproex Sodium 500 mg PO QHS 05/24/17 Albuterol Aerosols [Ventolin 2.5 mg INHALATION Q2H PRN PRN 06/28/18 Aerosols] vial.neb. 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 This does show an area of bronchiectasis in the right lower lobe and a large hiatal hernia. There is no significant basilar fibrosis noted. No emphysematous changes are appreciated. No pulmonary embolism. - Physical Exam General: Alert, Cooperative, No apparent distress, Confused, - - Obese. Speaking in full sentences. HEENT: Atraumatic, PERRLA, EOMI, Normocephalic, - - Last is in place. No scleral icterus or injection noted. Oral: Moist Mucosa, No Gingival or Mucosal Lesions/ Ulcerations Neck: Supple, No JVD, No Nodes, Trachea Midline Lungs: No rhonchi, No wheeze, No rales, Diminished Cardiovascular: Regular rate, Regular Rhythm, Normal S1, Normal S2, No murmurs, No rub noted, No Gallop Abdomen: Bowel Sounds Present, Soft, Non Tender, Non-Distended, Obese Extremities: No clubbing, No cyanosis, Edema - 2-3+ pitting edema Skin: - - Venous stasis changes the lower extremity Musculoskeletal: No Tenderness to Palpation of Joints or Extremities, No Muscle Wasting Lymphatic: No Cervical, Supraclavicular, or Inguinal Adenopathy Neurological: Cranial nerves II-XII grossly intact, Neuro grossly intact Psych/Mental Status: Normal Affect, Appropriate Vital Signs Temp Pulse Resp BP Pulse Ox 36.7 C 67 18 112/56 L 96 06/29/18 09:58 06/29/18 09:58 06/29/18 09:58 06/29/18 09:58 06/29/18 09:58 Oxygen Flow Rate (L/min) 3 Oxygen Delivery Method Nasal Cannula Weight: 84.9 kg Body Mass Index (BMI) 36.5 Intake and Output for Last 24 Hours 06/27/18 06/28/18 06/29/18 23:59 23:59 23:59 Intake Total 1915 / 191 1038 / 1038 Output Total 300 / 300 Balance 1615 / 1615 1038 / 1038 Microbiology Past 72 Hours 06/28/18 Unknown Respiratory Panel (PCR) - Final Mucosa - Nasopharyngeal Laboratory Tests Past 24 Hrs 06/28/18 10:36 Specimen Type ART Sample Site L Radial pH 7.46 H Bicarbonate Actual 30.6 H POC Total CO2 32 Base Excess 7 H O2 Saturation 95 ABG pCO2 42.8 ABG pO2 70 L Rao Test POS O2 Delivery Device Nasal Can Liter Flow 3.0 Blood Gas Notified Whom HOSP Blood Gas Notified Time 1035 Clinical Impression(s) from Imaging Studies Chest X-Ray 06/28/18 00:09 IMPRESSION: Chronic lung changes. Basilar atelectasis/scarring. No focal consolidation. Electronically Signed: Eliseo Oliver, at 1:16 EDT Tel , Service support , Chest CTA 06/28/18 01:14 IMPRESSION: No pulmonary embolism. Atherosclerotic disease of the aorta without aneurysm or dissection. 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 Small bilateral pleural effusions with adjacent atelectasis/infiltrates. No focal consolidation. Large hiatal hernia. Other findings as above. Electronically Signed: Eliseo Oliver, at 4:22 EDT Tel , Service support , Assessment/Plan All Active Problems Hypoxemia (Acute) RECOMMENDATIONS: 1. Continue supplemental oxygen to maintain saturations greater than 90% 2. Continue baseline PPI 3. Initiation of Acapella therapy 4. Okay to discharge from my perspective IMPRESSIONS: 1. Hypoxemia This is likely multifactorial. Patient does have a history of diastolic dysfunction requiring Lasix therapy. Patient does not appear to be in acute overload on CT scan of the chest. Patient does have a large hiatal hernia, likely leading to some restrictive defects. Given patient's goals of therapy (Comfort Care) treatment with supplemental oxygen is likely appropriate. Patient could have surgical intervention for reduction of hiatal hernia. Patient does have a PPI at baseline. Incidental bronchiectasis noted of the right lower lobe. This is likely secondary to acid reflux given large hiatal hernia and reports of chronic heartburn. 2. Dementia/debility/hypertension/bipolar/hyperlipidemia/advanced age Complicates care, management, recovery and prognosis. Okay to continue with baseline medications Code Visit Inpatient E&M: 12127 Init Hosp L2
--- NOTE | 2018-06-29 10:28 | CON.PCM_ITS ---
Problem List (1) Hypoxemia Status: Acute (2) Osteoarthritis Status: Chronic (3) Hyperparathyroidism Status: Chronic Comment: PTH is 140 on 05/25 (4) Insomnia Status: Chronic (5) Osteoporosis Status: Chronic (6) HTN (hypertension) Status: Chronic (7) Bipolar disorder Status: Chronic (8) Dyslipidemia Status: Chronic (9) Hypothyroidism Status: Chronic (10) Depression Status: Chronic Reason for Consult Date of Consultation: 06/29/18 Reason for Consultation: Hypoxemia History of Present Illness: The patient is a 77 year old F, with past medical history listed below, who presented to [facility] on 06/28/2018 secondary to wheezing and hypoxemia. Patient reportedly has a history of chronic lymphedema of the legs, but was brought in by EMS from her longterm secondary to hypoxemia. Patient was evaluated in the emergency room and received a steroid and Benadryl. There was some concern for pleural effusion, so patient had a CTPA. Patient was admitted to the floor and initiated on nasal cannula oxygen. Patient reports she has never been on nasal cannula oxygen. Patient is pleasantly confused at this time and not able to provide much history. Patient does deny a daily cough. Patient is not dyspneic or reporting chest pain at this time. Patient does report GERD type symptoms routinely. Patient reports she is nonambulatory at baseline. Most of the history is from the electronic medical record. Patient reportedly was seen by her POA and thought that there was nothing different in her overall appearance. Patient denied any dyspnea during my evaluation. Patient states she has never been on supplemental oxygen previously. Patient has worked in nursing homes in the past, but denies any history of tuberculosis. Unable to obtain a reliable review of systems secondary to mental status otherwise. Past Medical History Past Medical History (Chronic Problems): Chronic Problems Osteoarthritis (Chronic) Hypokalemia (Chronic) Hyperlipidemia (Chronic) Hyperparathyroidism (Chronic) PTH is 140 on 05/25 Insomnia (Chronic) Osteoporosis (Chronic) HTN (hypertension) (Chronic) Bipolar disorder (Chronic) Dyslipidemia (Chronic) Hypothyroidism (Chronic) Depression (Chronic) Allergies mold Allergy (Verified 05/23/17 20:25) Unknown Penicillins Allergy (Verified 05/23/17 20:25) Unknown IVP DYE Allergy (Uncoded 05/23/17 20:25) Hives Home Medications: Ambulatory Orders Medication Instructions Recorded Alendronate Sodium [Fosamax] 70 mg PO Q7D@0700 05/14/16 Aspirin [Aspirin, Baby] 81 mg PO DAILY@0800 05/14/16 Calcium Carbonate/Vitamin D3 1 each PO DAILY 05/14/16 [Calcium 600-Vit D3 200 Tablet] Furosemide [Lasix] 40 mg PO DAILY 05/14/16 Polyethylene Glycol 3350 [Miralax] 17 gm PO PRN PRN 05/14/16 Potassium Chloride [Klor-Con] 20 meq PO DAILY 05/14/16 Simvastatin [Zocor] 20 mg PO QHS 05/14/16 Vit A/Vit C/Vit E/Zinc/Copper 1 each PO DAILY 05/14/16 [Preservision Areds Softgel] traZODone [Desyrel] 50 mg PO QHS 05/14/16 Acetaminophen [Tylenol] 650 mg PO Q4H PRN PRN 03/27/17 Citalopram [Celexa] 10 mg PO DAILY 03/27/17 Olanzapine [Zyprexa Zydis] 1 tab PO DAILY 03/27/17 Levothyroxine [Synthroid] 112 mcg PO DAILY 05/23/17 Loperamide [Imodium] 2 mg PO Q2H PRN PRN 05/23/17 Magnesium Hydroxide [Milk of 30 ml PO DAILY PRN PRN 05/23/17 Magnesia] Divalproex Sodium 500 mg PO QHS 05/24/17 Albuterol Aerosols [Ventolin 2.5 mg INHALATION Q2H PRN PRN 06/28/18 Aerosols] vial.neb. Ipratropium/Albuterol Sulfate 3 ml INHALATION Q4HWA.RT ampul.neb 06/28/18 [Duoneb] Omeprazole 20 mg PO DAILY 06/28/18 Surgical History: total hip arthroplasty, - - hip replacement Psychiatric History: Bipolar, Depression, - - unspecified MEDICAL SCIENCE LIAISON History: No pertinent MEDICAL SCIENCE LIAISON history Lives: Snf Smoking Status: Never smoker - *Family History Maternal History Items: No pertinent history Paternal History Items: No pertinent history Review of Systems Unable to obtain accurate/complete ROS d/t: See HPI Patient Problems: Active and Suspected Problems Hypoxemia (Acute) Objective: CT of the chest was personally reviewed. This does show an area of bronchiectasis in the right lower lobe and a large hiatal hernia. There is no significant basilar fibrosis noted. No emphysematous changes are appreciated. No pulmonary embolism. - Physical Exam General: Alert, Cooperative, No apparent distress, Confused, - - Obese. Speaking in full sentences. HEENT: Atraumatic, PERRLA, EOMI, Normocephalic, - - Last is in place. No scleral icterus or injection noted. Oral: Moist Mucosa, No Gingival or Mucosal Lesions/ Ulcerations Neck: Supple, No JVD, No Nodes, Trachea Midline Lungs: No rhonchi, No wheeze, No rales, Diminished Cardiovascular: Regular rate, Regular Rhythm, Normal S1, Normal S2, No murmurs, No rub noted, No Gallop Abdomen: Bowel Sounds Present, Soft, Non Tender, Non-Distended, Obese Extremities: No clubbing, No cyanosis, Edema - 2-3+ pitting edema Skin: - - Venous stasis changes the lower extremity Musculoskeletal: No Tenderness to Palpation of Joints or Extremities, No Muscle Wasting Lymphatic: No Cervical, Supraclavicular, or Inguinal Adenopathy Neurological: Cranial nerves II-XII grossly intact, Neuro grossly intact Psych/Mental Status: Normal Affect, Appropriate Vital Signs Temp Pulse Resp BP Pulse Ox 36.7 C 67 18 112/56 L 96 06/29/18 09:58 06/29/18 09:58 06/29/18 09:58 06/29/18 09:58 06/29/18 09:58 Oxygen Flow Rate (L/min) 3 Oxygen Delivery Method Nasal Cannula Weight: 84.9 kg Body Mass Index (BMI) 36.5 Intake and Output for Last 24 Hours 06/27/18 06/28/18 06/29/18 23:59 23:59 23:59 Intake Total 1915 / 191 1038 / 1038 Output Total 300 / 300 Balance 1615 / 1615 1038 / 1038 Microbiology Past 72 Hours 06/28/18 Unknown Respiratory Panel (PCR) - Final Mucosa - Nasopharyngeal Laboratory Tests Past 24 Hrs 06/28/18 10:36 Specimen Type ART Sample Site L Radial pH 7.46 H Bicarbonate Actual 30.6 H POC Total CO2 32 Base Excess 7 H O2 Saturation 95 ABG pCO2 42.8 ABG pO2 70 L Rao Test POS O2 Delivery Device Nasal Can Liter Flow 3.0 Blood Gas Notified Whom HOSP Blood Gas Notified Time 1035 Clinical Impression(s) from Imaging Studies Chest X-Ray 06/28/18 00:09 IMPRESSION: Chronic lung changes. Basilar atelectasis/scarring. No focal consolidation. Electronically Signed: Eliseo Oliver, at 1:16 EDT Tel , Service support , Chest CTA 06/28/18 01:14 IMPRESSION: No pulmonary embolism. Atherosclerotic disease of the aorta without aneurysm or dissection. 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 Small bilateral pleural effusions with adjacent atelectasis/infiltrates. No focal consolidation. Large hiatal hernia. Other findings as above. Electronically Signed: Eliseo Oliver, at 4:22 EDT Tel , Service support , Assessment/Plan All Active Problems Hypoxemia (Acute) RECOMMENDATIONS: 1. Continue supplemental oxygen to maintain saturations greater than 90% 2. Continue baseline PPI 3. Initiation of Acapella therapy 4. Okay to discharge from my perspective IMPRESSIONS: 1. Hypoxemia This is likely multifactorial. Patient does have a history of diastolic dysfunction requiring Lasix therapy. Patient does not appear to be in acute overload on CT scan of the chest. Patient does have a large hiatal hernia, likely leading to some restrictive defects. Given patient's goals of therapy ( Comfort Care) treatment with supplemental oxygen is likely appropriate. Patient could have surgical intervention for reduction of hiatal hernia. Patient does have a PPI at baseline. Incidental bronchiectasis noted of the right lower lobe. This is likely secondary to acid reflux given large hiatal hernia and reports of chronic heartburn. 2. Dementia/debility/hypertension/bipolar/hyperlipidemia/advanced age Complicates care, management, recovery and prognosis. Okay to continue with baseline medications Code Visit Inpatient E&M: 79148 Init Hosp L2
[2018-06-29 11:42] VITALS: O2SAT 85
--- NOTE | 2018-06-29 11:43 | NURSING ---
pt removed from 3L NC 02 for oxygen trial. pt resting in bed due to pt inability to ambulate. spo2 85% on room air. 02 2L NC applied spo2 89% increased to 3L stating 93%.
--- NOTE | 2018-06-29 11:51 | PCM.HOSP.N ---
Hospitalist Note Patient's pulse ox on room air at rest was 85%, she required 3 L of oxygen to maintain her pulse ox above 88%, she is ambulatory at home and will use the oxygen
--- NOTE | 2018-06-29 12:20 | CASEMGMT ---
RN CM updated by floor nurse that patient will need home oxygen at discharge. Patient's preferred in-network DME [facility]. Script obtained from hospitalist and referral sent to [facility]. RN CM arranged for portable oxygen to be delivered to hospital for discharge. CM will remain available and plan for a safe discharge.
--- NOTE | 2018-06-29 14:09 | CASEMGMT ---
Social Work MS3 Patient discharged back to [facility] today. Home oxygen set up through [facility] per RN HUBER Downey, with portable tank to be delivered to [facility] by 1430 today. Patient is reportedly wheelchair bound at the assisted living. Spoke with Aleshia a nurse at [facility] and the facility can send the wheelchair van at 1500 today. Aleshia will have the salesperson driver bring patient's wheelchair to the room, nursing staff will just have to help with the transfer to the the wheelchair. Updated nursing staff to time of discharge, and outpatient services director that patient's home wheelchair will be brought to the unit. Faxed discharge summary and instructions to confirmed fax at [facility] ([phone]) for continuity of care of this patient. Called patient's niece and POAHC Jacki Hair ([phone]). Left voicemail of planned discharge today and time set. Left this database report writer's name and number should Jacki have any questions. Jacki did call back, left message thanking this database report writer for call with an update. No further needs requested or indicated. Plan: Discharge back to assisted living as prior to this hospital admission. -LEROY Bernardo, LITIGATION PARTNER
[2018-06-29 15:06] VITALS: BP 117/61; PULSE 80; RESP 18; TEMP 36.7; O2SAT 97
== END 2018-06-29 15:47 | disposition home or self-care (01) | DRG 206 ==
LOC: ED 23:59 → MS3 06-28 05:47
PROVIDERS: Admitting Provider Hospitalist; Emergency Provider Emergency Medicine; Family Provider Internal Medicine; PCP Internal Medicine; Visit Provider Internal Medicine
DX: J98.11 Atelectasis (principal); N17.9 Acute kidney failure, unspecified; E03.9 Hypothyroidism, unspecified; F31.9 Bipolar disorder, unspecified; M81.0 Age-related osteoporosis without current pathological fracture; E78.5 Hyperlipidemia, unspecified; Z79.83 Long term (current) use of bisphosphonates; G30.9 Alzheimer's disease, unspecified; F02.80 Dementia in other diseases classified elsewhere, unspecified severity, without behavioral disturbance, psychotic disturbance, mood disturbance, and anxiety; Z23 Encounter for immunization; I89.0 Lymphedema, not elsewhere classified; I10 Essential (primary) hypertension; E21.3 Hyperparathyroidism, unspecified; G47.00 Insomnia, unspecified; K44.9 Diaphragmatic hernia without obstruction or gangrene; J47.9 Bronchiectasis, uncomplicated; R53.81 Other malaise; Z66 Do not resuscitate; R09.02 Hypoxemia
CPT/HCPCS: 36600; 71045; 71275; 80048; 82570; 82803; 83880; 84300; 84484; 84540; 85025; 87633; 93005; 93306; 94640; 99285; J7030; J7050; Q9957; Q9967; 90686; A4216

== ENCOUNTER → 2018-07-12 04:00 | Outpatient (REF) | payer MEDICARE, SELFPAY ==
[2018-07-12 07:53] LABS: Valproic Acid (Depakene) Level 71 ug/mL (50-100)
== END ==
LOC: OLS.DANBUR 04:00
PROVIDERS: Visit Provider Internal Medicine
DX: Z79.899 Other long term (current) drug therapy (principal)
CPT/HCPCS: 36415; 80164

== ENCOUNTER 2018-09-07 18:14 | Emergency (ER) | payer MEDICARE, SELFPAY ==
[2018-09-07 18:14] VITALS: PULSE 120; RESP 14; TEMP 37.6; O2SAT 93; BMI 31.2
[2018-09-07 18:18] VITALS: BP 109/53
[2018-09-07 18:25] VITALS: O2SAT 94
[2018-09-07 18:27] VITALS: O2SAT 94
--- NOTE | 2018-09-07 18:32 | EKG12_ITS ---
Test Reason : COUGH Blood Pressure : / mmHG Vent. Rate : 117 BPM Atrial Rate : 117 BPM P-R Int : 178 ms QRS Dur : 074 ms QT Int : 334 ms P-R-T Axes : 021 -38 009 degrees QTc Int : 465 ms Sinus tachycardia with occasional Premature ventricular complexes Left axis deviation Inferior infarct , age undetermined Abnormal ECG Confirmed by CHLOE BRIZUELA, ATUL ([id number]), editorial intern TANGELA CAM ([id number]) on 09/11/2018 2:07:22 PM Referred By: SONIYA Confirmed By:ATUL CORONA MD
--- NOTE | 2018-09-07 18:35 | RAD_ITS ---
STUDY: X-RAY CHEST REASON FOR EXAM: Female, 77 years old. Cough TECHNIQUE: A single frontal view of the chest was obtained. COMPARISON: June 28, 2018 FINDINGS: The lungs are underaerated. There are asymmetric opacities in the left lung base. There is minimal blunting of the left costophrenic angle. The cardiac silhouette is normal in size. The mediastinum and hilar regions are unremarkable. Normal visualized pulmonary arteries. There is atherosclerotic calcification of the thoracic aorta. There are diffuse degenerative changes of the visualized spine. There is dextroscoliosis in the upper thoracic spine. There are degenerative changes in both shoulders. There is a large hiatal hernia. RAD/Chest 1 View (Portable) IMPRESSION: Asymmetric opacities in the left lung base may represent developing consolidation/infection. There is a small left pleural effusion. Electronically Signed: Ana Mckenna MD at 19:23 EST Tel Direct: [phone], Service support ,
[2018-09-07 19:04] LABS: Basophil# 0.02 X10^3/uL; Basophil% 0.2 % (0-1); Eosinophil# 0.22 X10^3/uL; Eosinophils% 2.3 % (0-5); Hematocrit 36.6 % (37-47); Hemoglobin 11.4 g/dl (12.0-15.0); Lymphocyte % 13.6 % (19-41); Mean Corp Hgb Conc 31.1 g/gl (32-36); Mean Corpuscular Hgb 27.2 pg (27.0-32.0); Mean Corpuscular Volume 87.4 fL (81-99); Mean Platelet Vol. 10.7 fl (6.2-12.0); Monocyte# 1.02 X10^3/uL; Monocyte% 10.7 % (0-10); Neutrophil # 6.97 X10^3/uL (2.7-7.7); Neutrophil % 73.1 % (47-70); POSITIVE COUNT NO; POSITIVE DIFFERENTIAL NO; POSITIVE MORPHOLOGY NO; Platelet Count 232 K/mm3 (150-450); RBC Distribution Width CV 15.2 % (11.6-14.6); RBC Distribution Width SD 48.5 fl (35.1-43.9); Red Blood Count 4.19 M/mm3 (4.2-5.4); White Blood Count 9.5 K/mm3 (4.4-11.0)
[2018-09-07 19:26] LABS: Anion Gap 7 (5-15); BUN 20 mg/dL (7-18); BUN/Creat Ratio 21.8 RATIO (10-20); Calcium,Total 8.4 mg/dL (8.5-10.1); Chloride 103 mmol/L (98-107); Creatinine, Serum 0.92 mg/dL (0.55-1.02); EST Glomerular Filtration Rate 63 mL/min (>60); Est Glom Filt Rate - Afr Amer 76 mL/min (>60); Estimated Creatinine Clearance 36.78 ml/min; Glucose 112 mg/dL (74-106); Sodium Level 141 mmol/L (136-145); Thyroid Stim Hormone (TSH) 0.38 uIU/mL (0.358-3.74)
[2018-09-07 19:30] LABS: Valproic Acid (Depakene) Level 66 ug/mL (50-100)
[2018-09-07 19:33] LABS: BNP,B-Type NATRIURETIC PEPTIDE 31.9 pg/mL (0-100)
[2018-09-07 20:05] VITALS: BP 114/67; PULSE 109; RESP 20; O2SAT 94
--- NOTE | 2018-09-07 20:07 | ED.VISSUMM ---
- ER Visit Summary Date of Service: 09/07/18 Chief Complaint: Cough, shortness of breath History of Present Illness: The patient is a 77 F who was sent in from [facility] living with cough and increased shortness of breath. Portable chest x-ray at the facility reportedly revealed a left lower lobe infiltrate versus pleural effusion. Patient has dementia and is an O x1 at baseline. She denies shortness of breath when sitting at rest. She denies pain. Physical Examination: Blood pressure is 109/53, temperature 99.6, heart rate 120, respiratory rate 14, pulse ox 93% on 3 L. Patient is on O2 at baseline. Patient sitting upright in bed no acute distress. Head neck examination is unremarkable. Heart is slightly tachycardic and regular. Lungs sounds are with mild rales on the left. Abdomen is soft nontender. Lower extremity exam reveals 3+ edema that is symmetric. Neuro exam reveals patient to be a and O x1 which is her reported baseline. Test Results: EKG is sinus tach at 117 with no sign of acute ischemia. CBC was normal white count. Hemoglobin is 11.4. Chemistry studies unremarkable. BNP is normal at 31. TSH is normal. Valproic acid level is normal. Portable chest x-ray reveals asymmetric opacities in the left lung base which may represent developing consolidation/infection. Small left pleural effusion is noted. Emergency Department Course and Treatment: Patient is given Tylenol here for borderline fever along with a dose of p.o. Levaquin. Patient does have a DNR Comfort Care order and therefore will not be a candidate for further invasive respiratory treatment. At this time there is nothing that we would do different in the hospital versus back at her assisted living center. We have contacted the assisted living center and they are comfortable caring for her. I spoke with Dr. Rodriguez, on-call for the patient's primary care physician and she is in agreement with this plan also. Patient be discharged with Levaquin. Treatment Plan: [] Disposition: Discharge Impression: Left lower lobe infiltrate This note was generated with Quench dictation software. It may contain incorrect words, spelling, and punctuation that were not noted in review of the chart prior to signing ED Disposition - Plan for ED Patient: Chief Complaint: Cough Referrals: Ryan Scuhmacher MD [Primary Care Provider] -
--- NOTE | 2018-09-07 20:10 | ED.DCSUM_ITS ---
- ER Visit Summary Date of Service: 09/07/18 Chief Complaint: Cough, shortness of breath History of Present Illness: The patient is a 77 F who was sent in from [facility] living with cough and increased shortness of breath. Portable chest x- ray at the facility reportedly revealed a left lower lobe infiltrate versus pleural effusion. Patient has dementia and is an O x1 at baseline. She denies shortness of breath when sitting at rest. She denies pain. Physical Examination: Blood pressure is 109/53, temperature 99.6, heart rate 120, respiratory rate 14, pulse ox 93% on 3 L. Patient is on O2 at baseline. Patient sitting upright in bed no acute distress. Head neck examination is unremarkable. Heart is slightly tachycardic and regular. Lungs sounds are with mild rales on the left. Abdomen is soft nontender. Lower extremity exam reveals 3+ edema that is symmetric. Neuro exam reveals patient to be a and O x1 which is her reported baseline. Test Results: EKG is sinus tach at 117 with no sign of acute ischemia. CBC was normal white count. Hemoglobin is 11.4. Chemistry studies unremarkable. BNP is normal at 31. TSH is normal. Valproic acid level is normal. Portable chest x-ray reveals asymmetric opacities in the left lung base which may represent developing consolidation/infection. Small left pleural effusion is noted. Emergency Department Course and Treatment: Patient is given Tylenol here for borderline fever along with a dose of p.o. Levaquin. Patient does have a DNR Comfort Care order and therefore will not be a candidate for further invasive respiratory treatment. At this time there is nothing that we would do different in the hospital versus back at her assisted living center. We have contacted the assisted living center and they are comfortable caring for her. I spoke wi th Dr. Rodriguez, on-call for the patient's primary care physician and she is in agreement with this plan also. Patient be discharged with Levaquin. Treatment Plan: [] Disposition: Discharge Impression: Left lower lobe infiltrate This note was generated with Qardio dictation software. It may contain incorrect words, spelling, and punctuation that were not noted in review of the chart prior to signing ED Disposition - Plan for ED Patient: Chief Complaint: Cough Referrals: Ryan Schumacher MD [Primary Care Provider] -
--- NOTE | 2018-09-07 20:10 | ED.DEP ---
ED Disposition - Plan for ED Patient: Disposition: Home or Assisted Living Chief Complaint: Cough Instructions: ED Pneumonia Adult Prescriptions: Levofloxacin [Levaquin] 750 mg PO DAILY #4 tablet Referrals: Ryan Schumacher MD [Primary Care Provider] - 3-5 Days
[2018-09-07] MEDS: Acetaminophen 325 MG Tablet 650 MG PO (20:16)
[2018-09-07] MEDS: levoFLOXacin 750 MG Tablet PO (20:16)
[2018-09-07 20:32] VITALS: BP 120/77; PULSE 107; RESP 22
--- NOTE | 2018-09-07 20:32 | ED.RN ---
report called back to yobani. this rn spoke to lalitha valerio. lalitha verbalized understanding of report. no further questions.
--- OUTSIDE RECORDS SUMMARY | 2018-11-02 16:38 | XMS RPT_ITS ---
:1940 Author Organization OHIP Support Name Relationship Address Phone SHANI RUSSELL Unavailable [address] + [place] [address] R Unavailable Unavailable Unavailable ALISA, SANTOS Unavailable [address] + [place] [address] Shani Russell Unavailable [address] + [place] [address] R Unavailable Unavailable Unavailable Slim, Efrain Unavailable [address] + [facility] [place] [address] Shani Russell Unavailable [address] + [place] [address] R Unavailable Unavailable Unavailable Slim, Efrain Unavailable [address] + [facility] [place] [address] Shani Russell Unavailable [address] + [place] [address] R Unavailable Unavailable Unavailable Slim, Efrain Unavailable [address] + [facility] [place] [address] SHANI RUSSELL Unavailable [address] + [place] [address] R Unavailable Unavailable Unavailable SLIM, EFRAIN Unavailable [address] + [facility] [place] [address] Shani Russell Unavailable [address] + [place] [address] R Unavailable Unavailable Unavailable Slim, Efrain Unavailable [address] + [facility] [place] [address] Shani Russell Unavailable [address] + [place] [address] R Unavailable Unavailable Unavailable Slim, Efrain Unavailable [address] + [facility] [place] [address] Aye Shani Unavailable [address] + [place] [address] R Unavailable Unavailable Unavailable Slim, Efrain Unavailable [address] + [facility] [place] [address] Aye Shani Unavailable [address] + [place] [address] R Unavailable Unavailable Unavailable Slim, Efrain Unavailable [address] + [facility] [place] [address] Aye Shani Unavailable [address] + [place] [address] R Unavailable Unavailable Unavailable Slim, Efrain Unavailable [address] + [facility] [place] [address] Aye Shani Unavailable [address] + [place] [address] R Unavailable Unavailable Unavailable Slim Efrain Unavailable [address] + [facility] [place] [address] Aye Shani Unavailable [address] + [place] [address] R Unavailable Unavailable Unavailable Slim Efrain Unavailable [address] + [facility] [place] [address] Care Team Providers Name Role Phone RYAN CHAVIS Attending Unavailable RYAN CHAVIS Referring Unavailable RYAN CHAVIS Referring Unavailable CHAVISRYAN MCCARTHY Referring Unavailable CHAVISRYAN MCCARTHY Referring Unavailable RYAN CHAVIS Attending Unavailable PARTHA, RYAN Maldonado Referring Unavailable PARTHA, RYAN Maldonado Referring Unavailable CHAVIS, RYAN Maldonado Referring Unavailable PARTHA, RYAN Maldonado Attending Unavailable PARTHA, RYAN Maldonado Attending Unavailable PARTHA, RYAN Maldonado Referring Unavailable Partha, Ryan Attending Unavailable Partha, Ryan Attending Unavailable [place]tha, Ryan Attending Unavailable Partha, Ryan Attending Unavailable Partha, Ryan Attending Unavailable [place]tha, Ryan Attending Unavailable Ryan Chavis Primary Care Unavailable Agyepong, Nahid Admitting Unavailable Tereletsky, Nikolas Attending Unavailable Armaan, Raghav Consulting Unavailable Agyepong, Nahid Admitting Unavailable Agyepong, Nahid Attending Unavailable Partha, Ryan Primary Care Unavailable Tereletsky, Nikolas Consulting Unavailable Agyepong, Nahid Admitting Unavailable Tereletsky, Nikolas Attending Unavailable Partha, Ryan Primary Care Unavailable Armaan, Raghav Consulting Unavailable Tereletsky, Nikolas Consulting Unavailable Partha, Ryan Attending Unavailable Armaan, Raghav Attending Unavailable Agyepong, Nahid Referring Unavailable Partha, Ryan Primary Care Unavailable Ana Mathew Attending Unavailable PROBLEMS PROBLEMS DATE TYPE CONDITION / CODE ATTENDING STATUS SOURCE 08/16/2018 Unknown Z79.899 - Other long Chavis, Active [place] term (current) drug Ryan [facility] therapy / Hospital Z79.899(ICD-10) Repository 08/03/2018 Unknown R09.02 - Hypoxemia / Tereletsky, Active [place] R09.02(ICD-10) [facility] Repository 07/13/2018 Unknown I10 - Essential ArmaanRaghav smith Active [place] (primary) Community hypertension / Hospital I10(ICD-10) Repository 07/13/2018 Unknown E78.5 - ArmaanRaghav smith Active [place] Hyperlipidemia, Community unspecified / Hospital E78.5(ICD-10) Repository 07/13/2018 Unknown F02.80 - Dementia in Raghav Crook Active [place] other diseases Community classified elsewhere Hospital without behavioral Repository disturbance / F02.80(ICD-10) 07/13/2018 Unknown F31.9 - Bipolar ArmaanRaghav smith Active [place] disorder, Community unspecified / Hospital F31.9(ICD-10) Repository 03/30/2018 Active Pleural effusion, NA Active [place] not elsewhere Clinic Main classified / [place] J90(ICD-10) Repository 08/28/2015 Active Hypothyroidism, NA Active [place] unspecified / Clinic Main E03.9(ICD-10) [place] Repository 03/30/2018 Active Other hyperlipidemia NA Active [place] / E78.4(ICD-10) Clinic Main [place] Repository 03/30/2018 Active Vitamin D NA Active [place] deficiency, Clinic Main unspecified / [place] E55.9(ICD-10) Repository 02/13/2018 Unknown E03.9 - Chavis, Active [place] Hypothyroidism, Ryan Community unspecified / Hospital E03.9(ICD-10) Repository 03/02/2018 Unknown J94.9 - Pleural Chavis, Active [place] condition, [facility] unspecified / Hospital J94.9(ICD-10) Repository 04/02/2018 Unknown J90 - Pleural Chavis, Active [place] effusion, not [facility] elsewhere classified Hospital / J90(ICD-10) Repository 06/20/2007 Active Edema, unspecified / NA Active [place] R60.9(ICD-10) Clinic Main [place] Repository 12/19/2017 Active Abnormal weight gain NA Active [place] / R63.5(ICD-10) Clinic Main [place] Repository 06/05/2017 Active Hyperparathyroidism, NA Active [place] unspecified / Clinic Main E21.3(ICD-10) [place] Repository 12/19/2017 Active Other group home NA Active [place] (current) drug [facility] Main therapy / [place] Z79.899(ICD-10) Repository PROCEDURES PROCEDURES No Procedure Records FoundRESULTS RESULTS 12 LEAD ELECTROCARDIOGRAM Observed: 09/11/2018 Status: F Source: [place] 2:07 PM [facility] REPOSITORY [facility] Cardiovascular Services [address] [place] [address] 12 Lead EKG 09/07/181919 MR#: [id number] Acct: [id number] Name: ROSALINA SMALLS Rep #: [id number] : 1940 77 From: Fredy Paniagua MD Attending Dr: Status: DEP ER Ordering Dr: Ana Mathew MD Date: 09/07/18 Location: ED Sex: F C Admitted: Test Reason : COUGH Blood Pressure : / mmHG Vent. Rate : 117 BPM Atrial Rate : 117 BPM P-R Int : 178 ms QRS Dur : 074 ms QT Int : 334 ms P-R-T Axes : 021 -38 009 degrees QTc Int : 465 ms Sinus tachycardia with occasional Premature ventricular complexes Left axis deviation Inferior infarct , age undetermined Abnormal ECG Confirmed by FREDY PANIAGUA MD ([id number]), technical editor TANGELA CAM ([id number]) on 09/11/2018 2:07:22 PM Referred By: SONIYA Confirmed By:FREDY PANIAGUA MD 09/11/18 1407 Date Fredy Paniagua MD CC: Ana Mathew MD; Ryan Chavis MD Signed EMERGENCY DEPARTMENT Observed: 09/07/2018 Status: F Source: [place] SUMMARY 10:56 PM [facility] REPOSITORY [facility] Medical Records Department [address] [place] [address] Emergency Department Summary 09/07/182006 MR#: [id number] Acct: [id number] Name: ROSALINA SMALLS Rep #: [id number] : 1940 77 From: Ana Mathew MD PCP: Ryan Chavis MD Status: DEP ER - ER Visit Summary Date of Service: 09/07/18 Chief Complaint: Cough, shortness of breath History of Present Illness: The patient is a 77 F who was sent in from [facility] assisted living with cough and increased shortness of breath. Portable chest x-ray at the facility reportedly revealed a left lower lobe infiltrate versus pleural effusion. Patient has dementia and is an O x1 at baseline. She denies shortness of breath when sitting at rest. She denies pain. Physical Examination: Blood pressure is 109/53, temperature 99.6, heart rate 120, respiratory rate 14, pulse ox 93% on 3 L. Patient is on O2 at baseline. Patient sitting upright in bed no acute distress. Head neck examination is unremarkable. Heart is slightly tachycardic and regular. Lungs sounds are with mild rales on the left. Abdomen is soft nontender. Lower extremity exam reveals 3+ edema that is symmetric. Neuro exam reveals patient to be a and O x1 which is her reported baseline. Test Results: EKG is sinus tach at 117 with no sign of acute ischemia. CBC was normal white count. Hemoglobin is 11.4. Chemistry studies unremarkable. BNP is normal at 31. TSH is normal. Valproic acid level is normal. Portable chest x- ray reveals asymmetric opacities in the left lung base which may represent developing consolidation/infection. Small left pleural effusion is noted. Emergency Department Course and Treatment: Patient is given Tylenol here for borderline fever along with a dose of p.o. Levaquin. Patient does have a DNR Comfort Care order and therefore will not be a candidate for further invasive respiratory treatment. At this time there is nothing that we would do different in the hospital versus back at her assisted living center. We have contacted the assisted living center and they are comfortable caring for her. I spoke with Dr. Rodriguez, on-call for the patient's primary care physician and she is in agreement with this plan also. Patient be discharged with Levaquin. Treatment Plan: [] Disposition: Discharge Impression: Left lower lobe infiltrate This note was generated with [employer] dictation software. It may contain incorrect words, spelling, and punctuation that were not noted in review of the chart prior to signing ED Disposition - Plan for ED Patient: Chief Complaint: Cough Referrals: Ryan Chavis MD [Primary Care Provider] - What to do if you have Problems For any increased pain, shortness of breath, bleeding, nausea or vomiting, chest pain, or any unexpected problems, contact your Primary Care Provider. Call [facility] ([phone]) or report to the closest Emergency Room. Call 911 if necessary. 09/07/18 2256 <Electronically signed by Ana Mathew MD> Date Ana Mathew MD Cosigner Signature (If Indicated): Date CC: Ryan Chavis MD Observed: 09/07/2018 Status: F Source: [place] CULTURE, BLOOD (WB) 8:15 PM [facility] REPOSITORY No growth in 5 days. Performed By: #### M200.1000 #### [facility] [address] [place], [place], [address] Observed: 09/07/2018 Status: F Source: [place] CULTURE, BLOOD (WB) 8:14 PM [facility] REPOSITORY No growth in 5 days. Performed By: #### M200.1000 #### [facility] [address] [place], [address] DISCHARGE INSTRUCTION Observed: 09/07/2018 Status: F Source: [place] 8:12 PM [facility] REPOSITORY [facility] Medical Records Department [address] [address] Discharge Instruction 09/07/182009 MR#: [id number] Acct: [id number] Name: ROSALINA SMALLS Rep #: [id number] : 1940 77 From: Ana Mathew MD PCP: Ryan Chavis MD Status: REG ER ED Disposition - Plan for ED Patient: Disposition: Home or Assisted Living Chief Complaint: Cough Instructions: ED Pneumonia Adult Prescriptions: Levofloxacin [Levaquin] 750 mg PO DAILY #4 tablet Referrals: Ryan Chavis MD [Primary Care Provider] - 3-5 Days What to do if you have Problems For any increased pain, shortness of breath, bleeding, nausea or vomiting, chest pain, or any unexpected problems, contact your Primary Care Provider. Call [facility] ([phone]) or report to the closest Emergency Room. Call 911 if necessary. 09/07/182011 <Electronically signed by Ana Mathew MD> Date Ana Mathew MD Cosigner Signature (If Indicated): Date CC: Ryan Chavis MD CBC W/DIFF, AUTOMATED Collected: 09/07/2018 Status: F Source: [place] 6:50 PM [facility] REPOSITORY TYPE CODE TESTS RESULT OUT OF RANGE REFERENCE UNITS LAB L100.1000 4.4-11.0 K/mm3 Normal WBC 9.5 LAB L100.1200 4.2-5.4 M/mm3 Low RBC 4.19 LAB L100.1300 12.0-15.0 g/dl Low HGB 11.4 LAB L100.1400 37-47 % Low HCT 36.6 LAB L100.1500 81-99 fL Normal MCV 87.4 LAB L100.1600 27.0-32.0 pg Normal MCH 27.2 LAB L100.1700 32-36 g/gl Low MCHC 31.1 LAB L100.1810 11.6-14.6 % High RDW CV 15.2 LAB L100.1820 35.1-43.9 fl High RDW SD 48.5 LAB L100.1900 150-450 K/mm3 Normal PLT 232 LAB L100.2000 6.2-12.0 fl Normal MPV 10.7 LAB L100.2100 47-70 % High NEUT% 73.1 LAB L100.2200 19-41 % Low LY% 13.6 LAB L100.2300 0-10 % High MONO% 10.7 LAB L100.2400 0-5 % Normal EO% 2.3 LAB L100.2500 0-1 % Normal BASO% 0.2 LAB L100.2550 0.0-0.9 % Normal IM GRAN % 0.100 Result Comment: IG% - Immature Granulocytes (promyelocytes, myelocytes and metamyelocytes) > 1% indicates that a LEFT SHIFT is Present. LAB L100.2620 2.0-7.7 X10 3/uL Normal Absolute Neut 7.0 LAB L100.2720 0.83-4.51 X10 3/ul Normal Absolute Lymph 1.30 Performed By: #### L100.0100 #### [facility] [address] [place], [address] BASIC METABOLIC Collected: 09/07/2018 Status: F Source: [place] PROFILE ([facility]) 6:50 PM [facility] REPOSITORY TYPE CODE TESTS RESULT OUT OF RANGE REFERENCE UNITS LAB L501.0100 74-106 mg/dL High GLU 112 Result Comment: Fasting Glucose result from 100 to 125 mg/dL suggests IMPAIRED HOMEOSTASIS per A.D.A. criteria. Please note revised GLUCOSE reference range effective 2017. LAB L501.1000 7-18 mg/dL High BUN 20 LAB L501.1100 0.55-1.02 mg/dL Normal CREAT,SERUM 0.92 Result Comment: The validity of the calculated GFR AND GFRAA in patients over 70 years has not been determined. Clinical correlation is essential. LAB L501.1110 >60 mL/min Normal EST GFR 63 Result Comment: Non- GFR Calc LAB L501.1115 >60 mL/min Normal EST GFR - AA 76 Result Comment: GFR Calc LAB L501.1255 ml/min Normal Estimated CRCL 36.78 LAB L501.1300 10-20 RATIO High BUN/CRE 21.8 LAB L501.2200 8.5-10 mg/dL Low .1 CA 8.4 LAB L501.5300 136-14 mmol/L Normal 5 NA 141 LAB L501.5600 3.5-5. mmol/L Normal 1 K 4.0 LAB L501.5900 98-107 mmol/L Normal CL 103 LAB L501.6100 21.0-3 mmol/L Normal 2.0 CO2 31.0 LAB L501.6200 5-15 Normal GAP 7 Performed By: #### L500.2500, L501.4010, L501.9520 #### [facility] [address] [place], [place], [id number] TROPONIN-I Collected: 09/07/2018 Status: F Source: [place] 6:50 PM [facility] REPOSITORY TYPE CODE TESTS RESULT OUT OF RANGE REFERENCE UNITS LAB L501.4010 <0.045 ng/mL Normal < 0.015 TROPONIN-I Result Comment: TROPONIN-I EXPECTED VALUES <0.045 Negative 0.045 - 0.590 Consistent with Cardiac Damage > OR = 0.600 Critical Value Not every elevated troponin is indicative of VT. These values should be used with clinical judgement in examining the patient's clinical picture for diagnosis. To establish a diagnosis of VT versus myocardial injury, there must be a demonstrated rise and/or fall in the troponin values, in addition to ischemic symptoms, EKG changes, new regional wall motion abnormality, and/or angiographical evidence. PLEASE NOTE: REFERENCE RANGES EDITED 18 Performed By: #### L500.2500, L501.4010, L501.9520 #### [facility] [address] [place], [place], [id number] THYROID STIM HORMONE Collected: 09/07/2018 Status: F Source: [place] (TSH) 6:50 PM [facility] REPOSITORY TYPE CODE TESTS RESULT OUT OF RANGE REFERENCE UNITS LAB L501.9520 0.358-3.74 uIU/mL Normal TSH 0.38 Performed By: #### L500.2500, L501.4010, L501.9520 #### [facility] [address] [place], [address] VALPROIC ACID Collected: 09/07/2018 Status: F Source: [place] (DEPAKENE) LEVEL 6:50 PM [facility] REPOSITORY TYPE CODE TESTS RESULT OUT OF RANGE REFERENCE UNITS LAB L501.8100 50-100 ug/mL Normal VALPROIC ACID 66 Performed By: #### L501.8100 #### [facility] [address] [place], [address] BNP,B-TYPE NATRIURETIC Collected: 09/07/2018 Status: F Source: [place] PEPTIDE 6:50 PM [facility] REPOSITORY TYPE CODE TESTS RESULT OUT OF RANGE REFERENCE UNITS LAB L503.6620 0-100 pg/mL Normal B-TYPE 31.9 AILYN PEP Performed By: #### L503.6620 #### [facility] [address] [place], [address] CHEST 1 VIEW Observed: 09/07/2018 Status: F Source: [place] (PORTABLE) 6:33 PM [facility] REPOSITORY [facility] Imaging Services [address] [place] [address] Chest 1 View (Portable) MR#: [id number] Acct: [id number] Name: ROSALINA SMALLS Rep #: [id number] : 1940 F 77 From: Ana Mckenna MD PCP: Ryan Chavis MD Status: REG ER Study: Chest 1 View (Portable) Date of Exam: 09/07/18 Exam# [id number] Ordering Dr: Ana Mathew MD STUDY: X-RAY CHEST REASON FOR EXAM: Female, 77 years old. Cough TECHNIQUE: A single frontal view of the chest was obtained. COMPARISON: June 28, 2018 FINDINGS: The lungs are underaerated. There are asymmetric opacities in the left lung base. There is minimal blunting of the left costophrenic angle. The cardiac silhouette is normal in size. The mediastinum and hilar regions are unremarkable. Normal visualized pulmonary arteries. There is atherosclerotic calcification of the thoracic aorta. There are diffuse degenerative changes of the visualized spine. There is dextroscoliosis in the upper thoracic spine. There are degenerative changes in both shoulders. There is a large hiatal hernia. RAD/Chest 1 View (Portable) IMPRESSION: Asymmetric opacities in the left lung base may represent developing consolidation/infection. There is a small left pleural effusion. Electronically Signed: Ana Mckenna MD at 19:23 EST Tel Direct: [phone], Service support , CC: Ana Mathew MD; Ryan Chavis MD Lug Breaker And Wire Puller: Signed PROGRESS Observed: 08/02/2018 Status: COMPLETED Source: [place] 3:14 PM [facility] [place] REPOSITORY HNO ID: [id number] Author: Ryan Chavis Service: (none) Author Type: Physician Type: Progress Notes Filed: 08/02/2018 3:28 PM Note Text: This note was created using [employer]. Subjective Rosalina Smalls is a 77 year old female. She acknowledged depressive symptoms, but these appear chronic and stable. Her psychiatrist moved away and her regimen had not changed recently. Other conditions were stable. 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 ipratropium-albuterol (DUONEB) 0.5 mg-3 mg(2.5 mg base)/3 mL nebu Inhale 3 mL as instructed every 4 hours as needed. Omeprazole 40 mg capsule Take 1 capsule by mouth once daily. levothyroxine (LEVOXYL) 112 mcg tablet Take 1 tablet by mouth once daily. Take on empty stomach. For thyroid. cholecalciferol (VITAMIN D-3) 2,000 unit tablet Take 1 tablet by mouth once daily. OLANZapine (ZYPREXA) 5 mg tablet Take 1 tablet by mouth daily at bedtime. Compression Knee Highs KNEE HIGH COMPRESSION STOCKINGS 20- 30 MM. DX: EDEMA divalproex DR (DEPAKOTE) 250 mg EC tablet Take 2 tablets by mouth daily at bedtime. potassium chloride ER (K-DUR, KLOR-CON) 20 mEq tablet Take 1 tablet by mouth once daily. simvastatin (ZOCOR) 20 mg tablet Take 1 tablet by mouth daily at bedtime. furosemide (LASIX) 40 mg tablet Take 1 tablet by mouth twice daily. Loperamide HCl (IMODIUM) 2 mg tab Take 2 mg by mouth every 2 hours as needed. senna (SENNA) 8.6 mg tab Take 2 tablets by mouth twice daily as needed. citalopram hydrobromide (CELEXA) 10 mg tablet Take 1 tablet by mouth once daily. acetaminophen (TYLENOL) 325 mg tablet Take 2 tablets by mouth every 4 hours as needed for Pain. magnesium hydroxide (MOM) 400 mg/5 mL suspension Take 30 mL by mouth once daily as needed. polyethylene glycol 3350 (MIRALAX) 17 gram/dose powder Mix 1 scoop in 8 oz of water and drink every other day for constipation calcium carbonate 600 mg-cholecalciferol 200 units (CALCIUM 600 + D,3,) 600 mg(1,500mg) -200 unit tab Take 1 tablet by mouth twice daily. Vit C-Vit Q-Gotxxi-GdYw-Lutein (PRESERVISION LUTEIN) 226 mg- 200 unit -5 mg-0.8 mg cap Take 1 capsule by mouth every evening. aspirin(ECOTRIN LOW STRENGTH 81 MG TAB) Take one(1) tablet daily. No current facility-administered medications for this visit. Review of Systems Respiratory: Positive for shortness of breath. Negative for cough and wheezing. Cardiovascular: Positive for leg swelling. Negative for chest pain and palpitations. Gastrointestinal: Negative. Genitourinary: Negative. Musculoskeletal: Positive for gait problem. Neurological: Positive for tremors and weakness. Negative for dizziness, numbness and headaches. Psychiatric/Behavioral: Positive for dysphoric mood. Negative for confusion and sleep disturbance. The patient is nervous/anxious. Objective BP 128/70 (BP Site: Right Arm, BP Position: Sitting, BP Cuff Size: Regular Adult) Pulse 96 Temp 36.3 ?C (97.4 ?F) (Left Tympanic) Resp 20 SpO2 95% Physical Exam Constitutional: She is oriented to person, place, and time. No distress. HENT: Head: Normocephalic. Eyes: Conjunctivae are normal. Neck: No JVD present. Cardiovascular: Normal heart sounds. Exam reveals no gallop. No murmur heard. Pulmonary/Chest: Effort normal. She has decreased breath sounds in the right lower field and the left lower field. She has no wheezes. She has rhonchi. She has no rales. On portable oxygen. Abdominal: Soft. There is no tenderness. Musculoskeletal: She exhibits edema. Neurological: She is alert and oriented to person, place, and time. She displays tremor. She exhibits abnormal muscle tone. Wheelchair bound. General debility. Psychiatric: She has a normal mood and affect. PHQ-9=5 Assessment and Plan 1. Medicare annual wellness visit, subsequent - ICD9: V70.0, ICD10: Z00.00 (primary diagnosis) See other note. 2. Bronchiectasis without complication (HCC) - ICD9: 494.0, ICD10: J47.9 Stable. 3. 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 Options discussed. Continue current regimen. 4. Anxiety state - ICD9: 300.00, ICD10: F41.1 Controlled. 5. Edema, unspecified type - ICD9: 782.3, ICD10: R60.9 Stable. 6. Unsteady gait - ICD9: 781.2, ICD10: R26.81 Chronic. Physical therapy ongoing. Prognosis for improvement guarded. Ryan Chavis MD PROGRESS Observed: 08/02/2018 Status: COMPLETED Source: [place] 2:53 PM [facility] [place] REPOSITORY O ID: [id number] Author: Ryan Chavis Service: (none) Author Type: Physician Type: Progress Notes Filed: 08/02/2018 3:28 PM Note Text: Medicare Yearly Visit Medical B eligibilty date 2006 Date of last exam N/A PAST MEDICAL HISTORY Diagnosis Date - Actinic keratosis 07/17/2007 - Anemia 11/22/2010 - Anxiety state, unspecified - Bipolar affective disorder, current episode manic with psychotic symptoms (HCC) 06/09/2016 - Bronchiectasis without complication (HCC) 07/09/2018 - Dementia associated with other underlying disease with behavioral disturbance 05/10/2016 - Disorder of bone and cartilage, unspecified - Diverticulosis of colon (without mention of hemorrhage) - Edema - Fibrocystic breast changes 05/02/2013 - Foot fracture, right 08/23/2015 - HISTORY OF GRAVES DISEASE 12/20/2007 - HYPERTENSION NOS 12/16/2008 - INSOMNIA NOS 10/07/2008 - Internal hemorrhoids without mention of complication - IRRITABLE COLON 12/16/2008 - Major depressive disorder, recurrent episode, severe, specified as with psychotic behavior 04/25/2011 - OSTEOPOROSIS NOS 06/20/2007 - Other and unspecified hyperlipidemia - Pain in joint, site unspecified - Pure hypercholesterolemia - S/P ORIF (open reduction internal fixation) fracture Right Hip 05/25/2017 - 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) 04/25/2011 - Unspecified constipation - Unspecified hypothyroidism - VITAMIN D DEFICIENCY NOS 06/20/2007 PAST SURGICAL HISTORY Procedure Laterality Date - COLONOSCOP W/ OR W/O [facility] SPEC 07/29/03 Colonoscopy - COLONOSCOP W/ OR W/O [facility] SPEC 11/22/07 - PAST SURGICAL HISTORY OF [facility] - hysteroscopy - REPAIR OF FEMUR FRACTURE Right 05/23/2017 IM nail, right femur - SIGMOIDOSCOPY FLEX DIAG 11/1996 Sigmoidoscopy - TOTAL HIP REPLACEMENT Left 07/25/2011 Hip replacement, total, LEFT Contrast Dye; Molds Extract; Penicillins Medications reviewed: Yes FAMILY HISTORY Problem Relation Age of Onset - Heart Mother - other (kidney [Other]) Father - Arthritis Sister - Ischemic Heart Disease Sister - Breast Cancer Mother - Breast Cancer Maternal Aunt - Blood Disease Brother - Coronary Artery Disease Brother SOCIAL HISTORY: Social History Marital status: Spouse name: Years of education: Number of children: Occupational History Occupation Employer Comment HOMEMAKER Social History Main Topics Smoking status: Never Smoker Smokeless tobacco: Never Used Alcohol use: No Drug use: No Social History Narrative Fall risk. Wheelchair bound. Lives in [facility]. Rosalina denies regular aerobic exercise. She watches her diet for sodium, low fat and low cholesterol some of the time. List of current specialists seen: None. End of Live Planning discussed including patients advanced directive wishes: Yes I am willing to follow Rosalina's advanced directives. Depression screen She in the past two weeks admits to having felt down, depressed or with little interest or pleasure in doing things. Functional Ability/Safety Screen 1. Was the patient's timed Up and Go test unsteady or longer than 30 seconds? Yes 2. Does the patient need help with the phone, transportation, shopping,preparing meals, housework, laundry, medications or managing money? Yes 3. Does your home have rugs in the hallway, lack of grab bars in the bathroom, lack of handrails on the stairs or have poor lighting? No Hearing Evaluation: hard of hearing PHYSICAL EXAM BP 128/70 (BP Site: Right Arm, BP Position: Sitting, BP Cuff Size: Regular Adult) Pulse 96 Temp 36.3 ?C (97.4 ?F) (Left Tympanic) Resp 20 SpO2 95% Alert and oriented X 3: Yes. There is no height or weight on file to calculate BMI. Visual acuity: OD: 20/70 OS: 20/ 200 OU: 20/70 ASSESSMENT/PLAN: 77 year old female The following prevention plan was discussed during the office visit and provided to the patient: - Weight Loss - Fall avoidance - Vaccines recommended Shingrix: VIS given. - Patient no longer interested in screening examinations. Ryan Chavis MD CNOV Observed: 08/02/2018 Status: COMPLETED Source: [place] 2:20 PM [facility] REPOSITORY Office Visit (INTMWS) SLIMTED ([id number]) 1940 F Date Time Provider Department 08/02/18 2:20 PM RYAN CHAVIS INTMWS During your visit today, we recorded the following information about you: Temperature Pulse Respiration Blood pressure 97.4 degrees 96/minute 20/minute 128/70 Ryan Chavis MD 08/02/2018 3:28 PM Signed Medicare Yearly Visit Medical B eligibilty date 2006 Date of last exam N/A PAST MEDICAL HISTORY Diagnosis Date - Actinic keratosis 07/17/2007 - Anemia 11/22/2010 - Anxiety state, unspecified - Bipolar affective disorder, current episode manic with psychotic symptoms (HCC) 06/09/2016 - Bronchiectasis without complication (HCC) 07/09/2018 - Dementia associated with other underlying disease with behavioral disturbance 05/10/2016 - Disorder of bone and cartilage, unspecified - Diverticulosis of colon (without mention of hemorrhage) - Edema - Fibrocystic breast changes 05/02/2013 - Foot fracture, right 08/23/2015 - HISTORY OF GRAVES DISEASE 12/20/2007 - HYPERTENSION NOS 12/16/2008 - INSOMNIA NOS 10/07/2008 - Internal hemorrhoids without mention of complication - IRRITABLE COLON 12/16/2008 - Major depressive disorder, recurrent episode, severe, specified as with psychotic behavior 04/25/2011 - OSTEOPOROSIS NOS 06/20/2007 - Other and unspecified hyperlipidemia - Pain in joint, site unspecified - Pure hypercholesterolemia - S/P ORIF (open reduction internal fixation) fracture Right Hip 05/25/2017 - 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) 04/25/2011 - Unspecified constipation - Unspecified hypothyroidism - VITAMIN D DEFICIENCY NOS 06/20/2007 PAST SURGICAL HISTORY Procedure Laterality Date - COLONOSCOP W/ OR W/O [facility] SPEC 07/29/03 Colonoscopy - COLONOSCOP W/ OR W/O [facility] SPEC 11/22/07 - PAST SURGICAL HISTORY OF [facility] - hysteroscopy - REPAIR OF FEMUR FRACTURE Right 05/23/2017 IM nail, right femur - SIGMOIDOSCOPY FLEX DIAG 11/1996 Sigmoidoscopy - TOTAL HIP REPLACEMENT Left 07/25/2011 Hip replacement, total, LEFT Contrast Dye; Molds Extract; Penicillins Medications reviewed: Yes FAMILY HISTORY Problem Relation Age of Onset - Heart Mother - other (kidney [Other]) Father - Arthritis Sister - Ischemic Heart Disease Sister - Breast Cancer Mother - Breast Cancer Maternal Aunt - Blood Disease Brother - Coronary Artery Disease Brother SOCIAL HISTORY: Social History Marital status: Spouse name: Years of education: Number of children: Occupational History Occupation Employer Comment HOMEMAKER Social History Main Topics Smoking status: Never Smoker Smokeless tobacco: Never Used Alcohol use: No Drug use: No Social History Narrative Fall risk. Wheelchair bound. Lives in [facility]. Rosalina denies regular aerobic exercise. She watches her diet for sodium, low fat and low cholesterol some of the time. List of current specialists seen: None. End of Live Planning discussed including patients advanced directive wishes: Yes I am willing to follow Rosalina's advanced directives. Depression screen She in the past two weeks admits to having felt down, depressed or with little interest or pleasure in doing things. Functional Ability/Safety Screen 1. Was the patient's timed Up and Go test unsteady or longer than 30 seconds? Yes 2. Does the patient need help with the phone, transportation, shopping,preparing meals, housework, laundry, medications or managing money? Yes 3. Does your home have rugs in the hallway, lack of grab bars in the bathroom, lack of handrails on the stairs or have poor lighting? No Hearing Evaluation: hard of hearing PHYSICAL EXAM BP 128/70 (BP Site: Right Arm, BP Position: Sitting, BP Cuff Size: Regular Adult) Pulse 96 Temp 36.3 ?C (97.4 ?F) (Left Tympanic) Resp 20 SpO2 95% Alert and oriented X 3: Yes. There is no height or weight on file to calculate BMI. Visual acuity: OD: 20/70 OS: 20/ 200 OU: 20/70 ASSESSMENT/PLAN: 77 year old female The following prevention plan was discussed during the office visit and provided to the patient: - Weight Loss - Fall avoidance - Vaccines recommended Shingrix: VIS given. - Patient no longer interested in screening examinations. MD Ryan Wynn MD 08/02/2018 3:28 PM Signed This note was created using NoteWriter. Subjective Rosalina Smalls is a 77 year old female. She acknowledged depressive symptoms, but these appear chronic and stable. Her psychiatrist moved away and her regimen had not changed recently. Other conditions were stable. 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 ipratropium-albuterol (DUONEB) 0.5 mg-3 mg(2.5 mg base)/3 mL nebu Inhale 3 mL as instructed every 4 hours as needed. Omeprazole 40 mg capsule Take 1 capsule by mouth once daily. levothyroxine (LEVOXYL) 112 mcg tablet Take 1 tablet by mouth once daily. Take on empty stomach. For thyroid. cholecalciferol (VITAMIN D-3) 2,000 unit tablet Take 1 tablet by mouth once daily. OLANZapine (ZYPREXA) 5 mg tablet Take 1 tablet by mouth daily at bedtime. Compression Knee Highs KNEE HIGH COMPRESSION STOCKINGS 20- 30 MM. DX: EDEMA divalproex DR (DEPAKOTE) 250 mg EC tablet Take 2 tablets by mouth daily at bedtime. potassium chloride ER (K-DUR, KLOR-CON) 20 mEq tablet Take 1 tablet by mouth once daily. simvastatin (ZOCOR) 20 mg tablet Take 1 tablet by mouth daily at bedtime. furosemide (LASIX) 40 mg tablet Take 1 tablet by mouth twice daily. Loperamide HCl (IMODIUM) 2 mg tab Take 2 mg by mouth every 2 hours as needed. senna (SENNA) 8.6 mg tab Take 2 tablets by mouth twice daily as needed. citalopram hydrobromide (CELEXA) 10 mg tablet Take 1 tablet by mouth once daily. acetaminophen (TYLENOL) 325 mg tablet Take 2 tablets by mouth every 4 hours as needed for Pain. magnesium hydroxide (MOM) 400 mg/5 mL suspension Take 30 mL by mouth once daily as needed. polyethylene glycol 3350 (MIRALAX) 17 gram/dose powder Mix 1 scoop in 8 oz of water and drink every other day for constipation calcium carbonate 600 mg-cholecalciferol 200 units (CALCIUM 600 + D,3,) 600 mg(1,500mg) -200 unit tab Take 1 tablet by mouth twice daily. Vit C-Vit V-Wtxufx-IfPp-Lutein (PRESERVISION LUTEIN) 226 mg- 200 unit -5 mg-0.8 mg cap Take 1 capsule by mouth every evening. aspirin(ECOTRIN LOW STRENGTH 81 MG TAB) Take one(1) tablet daily. No current facility-administered medications for this visit. Review of Systems Respiratory: Positive for shortness of breath. Negative for cough and wheezing. Cardiovascular: Positive for leg swelling. Negative for chest pain and palpitations. Gastrointestinal: Negative. Genitourinary: Negative. Musculoskeletal: Positive for gait problem. Neurological: Positive for tremors and weakness. Negative for dizziness, numbness and headaches. Psychiatric/Behavioral: Positive for dysphoric mood. Negative for confusion and sleep disturbance. The patient is nervous/anxious. Objective BP 128/70 (BP Site: Right Arm, BP Position: Sitting, BP Cuff Size: Regular Adult) Pulse 96 Temp 36.3 ?C (97.4 ?F) (Left Tympanic) Resp 20 SpO2 95% Physical Exam Constitutional: She is oriented to person, place, and time. No distress. HENT: Head: Normocephalic. Eyes: Conjunctivae are normal. Neck: No JVD present. Cardiovascular: Normal heart sounds. Exam reveals no gallop. No murmur heard. Pulmonary/Chest: Effort normal. She has decreased breath sounds in the right lower field and the left lower field. She has no wheezes. She has rhonchi. She has no rales. On portable oxygen. Abdominal: Soft. There is no tenderness. Musculoskeletal: She exhibits edema. Neurological: She is alert and oriented to person, place, and time. She displays tremor. She exhibits abnormal muscle tone. Wheelchair bound. General debility. Psychiatric: She has a normal mood and affect. PHQ-9=5 Assessment and Plan 1. Medicare annual wellness visit, subsequent - ICD9: V70.0, ICD10: Z00.00 (primary diagnosis) See other note. 2. Bronchiectasis without complication (HCC) - ICD9: 494.0, ICD10: J47.9 Stable. 3. 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 Options discussed. Continue current regimen. 4. Anxiety state - ICD9: 300.00, ICD10: F41.1 Controlled. 5. Edema, unspecified type - ICD9: 782.3, ICD10: R60.9 Stable. 6. Unsteady gait - ICD9: 781.2, ICD10: R26.81 Chronic. Physical therapy ongoing. Prognosis for improvement guarded. 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) [F33.3] Anxiety state [F41.1] Edema, unspecified type [R60.9] Unsteady gait [R26.81] Prescriptions as of 08/02/2018 Sig: TRAZODONE 50 MG TABLET Take 0.5 tablets by mouth rupal* IPRATROPIUM-ALBUTEROL 0.5 MG-* Inhale 3 mL as instructed jana* OMEPRAZOLE 40 MG CAPSULE,ZOILA* Take 1 capsule by mouth once * LEVOTHYROXINE 112 MCG TABLET Take 1 tablet by mouth once d* CHOLECALCIFEROL (VITAMIN D3) * Take 1 tablet by mouth once d* OLANZAPINE 5 MG TABLET Take 1 tablet by mouth daily * COMPOUNDED PRESCRIPTION KNEE HIGH COMPRESSION STOCKIN* DIVALPROEX 250 MG TABLET,ZOILA* Take 2 tablets by mouth daily* POTASSIUM CHLORIDE ER 20 MEQ * Take 1 tablet by mouth once d* SIMVASTATIN 20 MG TABLET Take 1 tablet by mouth daily * FUROSEMIDE 40 MG TABLET Take 1 tablet by mouth twice * LOPERAMIDE 2 MG TABLET Take 2 mg by mouth every 2 ho* SENNOSIDES 8.6 MG TABLET Take 2 tablets by mouth twice* CITALOPRAM 10 MG TABLET Take 1 tablet by mouth once d* ACETAMINOPHEN 325 MG TABLET Take 2 tablets by mouth every* MAGNESIUM HYDROXIDE 400 MG/5 * Take 30 mL by mouth once mami* POLYETHYLENE GLYCOL 3350 17 G* Mix 1 scoop in 8 oz of water * CALCIUM CARBONATE 600 MG (1,5* Take 1 tablet by mouth twice * VIT C-VIT C-UTLWRW-IATM OX-FEMI* Take 1 capsule by mouth every* ECOTRIN LOW STRENGTH 81 MG TA* Take one(1) tablet daily. Problem List As Of Date 08/02/2018 Noted Resolved HYPERLIPIDEMIA NEC/NOS [E78.5] 04/16/2007 Anxiety state [F41.1] Hypothyroidism [E03.9] Pain in joint, site unspecified [M25.50] 10/27/2011 EDEMA [R60.9] Hyperlipidemia [E78.5] INVALID FOR* Osteoporosis [M81.0] INVALID FOR* More... Unspecified vitamin D deficiency [E55.9] INVALID FOR*05/01/2012 Actinic keratosis [L57.0] INVALID FOR*11/03/2010 Inflamed seborrheic keratosis [L82.0] INVALID FOR*11/03/2010 Other seborrheic keratosis [L82.1] INVALID FOR*11/03/2010 SOLAR LENGINES///DYSCHROMIA OTHER [L81.9] INVALID FOR*11/03/2010 Other chronic dermatitis due to solar radiation*INVALID FOR*11/12/2013 Scar condition and fibrosis of skin [L90.5] INVALID FOR*11/03/2010 Open wound site NOS [T14.8XXA] INVALID FOR*11/03/2010 HISTORY OF GRAVES DISEASE [E05.00] INVALID FOR*11/03/2010 Constipation [K59.00] INVALID FOR* INSOMNIA NOS [G47.00] INVALID FOR* Essential hypertension [I10] INVALID FOR* Abdominal pain, other specified site [R10.9] INVALID FOR*11/03/2010 Diverticulosis of colon (without mention of hem*INVALID FOR*10/27/2011 Irritable bowel syndrome [K58.9] INVALID FOR*05/12/2016 Anemia [D64.9] INVALID FOR*11/12/2013 Severe recurrent major depressive disorder with*INVALID FOR* Irritated//Inflamed Seborrheic Keratosis [L82.0]INVALID FOR*11/18/2014 Other seborrheic keratosis [L82.1] INVALID FOR* Solar lentigo [L81.4] INVALID FOR*05/12/2016 Actinic skin damage [L57.8] INVALID FOR*05/12/2016 [place] angioma [D18.01] INVALID FOR*05/12/2016 Cutaneous skin tags [L91.8] INVALID FOR*05/12/2016 Fibrocystic breast changes [N60.19] INVALID FOR*05/12/2016 Dementia associated with other underlying disea*INVALID FOR* Bipolar affective disorder, current episode man*INVALID FOR* Unsteady gait [R26.81] INVALID FOR* S/P ORIF (open reduction internal fixation) fra*INVALID FOR* Hyperparathyroidism (HCC) [E21.3] INVALID FOR* Anemia due to blood loss [D50.0] INVALID FOR*03/30/2018 Gastroesophageal reflux disease [K21.9] INVALID FOR* Bronchiectasis without complication (HCC) [J47.*INVALID FOR* Hiatal hernia [K44.9] INVALID FOR* Medications Discontinued During This Encounter traZODone (DESYREL) 50 mg tablet 0 03/30/2018 08/02/2018 Class: Historical Med Route: ORAL Sig: Take 50 mg by mouth daily at bedtime. Disc: Reason for discontinue is not on file. Disposition: Return in about 6 months (around 01/31/2019). Follow-up and Disposition History Recorded Questionnaire: PHQ-9 Little interest or pleasure in doing things -> 0 NOT AT ALL Feeling down, depressed, or hopeless -> 1 Trouble falling or staying asleep, or sleeping too much - > 1 Feeling tired or having little energy -> 2 Poor appetite or overeating -> 0 Feeling bad yourself-you are a failure or have let yourself or others -> 0 Trouble concentrating, like reading the paper or watching TV -> 0 Moving/speaking slowly (others notice) OR being more fidgety/restless -> 0 Thoughts that you would be better off or of hurting yourself -> 1 PHQ TOTAL SCORE = -> 5 PHQ problems effect on difficulty of work, home, and social activity: -> 2 - SOMEWHAT DIFFICULT Encounter Status:Closed by RYAN CHAVIS MD on 08/02/18 VALPROIC ACID Collected: 07/12/2018 Status: F Source: [place] ([place]KENE) LEVEL 5:05 AM [facility] REPOSITORY Order Comment: ROOM 156 TYPE CODE TESTS RESULT OUT OF RANGE REFERENCE UNITS LAB L501.8100 50-100 ug/mL Normal VALPROIC ACID 71 Performed By: #### L501.8100 #### [facility] [address] [place], [address] PROGRESS Observed: 07/09/2018 Status: COMPLETED Source: [place] 2:11 PM [facility] REPOSITORY HNO ID: [id number] Author: Ryan Chavis Service: (none) Author Type: Physician Type: Progress Notes Filed: 07/09/2018 2:24 PM Note Text: Note TRANSITION CARE MANAGEMENT (TCM) INITIAL CONTACT Marketing Traffic Coordinator Outreach ? Provider Action/FYI: ? ? ? Initial contact with patient post discharge, spoke to caregiver. Patient identified by name and . ? TRANSITION CARE MANAGEMENT INITIAL OUTREACH DOCUMENTATION: No flowsheet data found. ? SUMMARY: -Pt discharged from [facility] on 06/29/18. -Admitted for: hypoxemia ? Do you have a hospital follow up appointment with your PCP? Appointment on 07/09/18 with pcp. . ? No. Assist patient with follow-up appointment within 1-14 calendar days from discharge date. If patient prefers not to schedule follow-up appointment at this time, notify PCP. ? MEDICATIONS: Many patients have questions or concerns about their medications once they are home. Were you prescribed any new medications? O2 and duoneb via aerosol four times a day ? Were you told to hold any medications? No Were any of your medications discontinued? No ? Do you have any questions about getting or taking your medications? No Reviewed discharge meds from [facility] and med list from [facility]. 1.[facility] reports pt is taking lasix 40 mg one twice daily. 2. Pt is taking vitamin D 3 2000 units daily ? Your discharge instructions/After visit Summary (AVS) are important in guiding you through the recovery process. Is there anything I might help you understand? No ? Do you have all the necessary equipment and supplies at home? Yes ? Medical records from recent hospitalization: Placed for provider to review Transitional Care Management Progress Note The patients TCM visit was performed within the 14 days of discharge. Patient's Date of discharge: 06/29/18 Date of initial coordinator contact after discharge: 07/03/2018 Discharge diagnosis: Hypoxia. Medication review completed Yes Ryan Chavis MD Provider Documentation: In follow-up of hospitalization, Rosalina Smalls is a 77 year old female with the chief complaint of transition of care. I have reviewed the patient?s last hospital course including diagnostic testing performed during this hospitalization, their discharge medications, and my assessment and plan with the patient and any family members present at today?s visit. HPI: Rosalina Smalls developed increased edema and dyspnea. I was trying to manage as an outpatient but she got worse with hypoxemia and was admitted at the local hospital. She was evaluated and ruled out for congestive heart failure or pulmonary embolism. Diuresis was continued, and oxygen was added. Pulmonary doctor Maine Crook saw her. She was doing much better. She continued to be sedentary. One of the concerns was acid reflux. She had intermittent acute acid reflux with nausea and vomiting. She was on omeprazole 20 gm daily. She was also on alendronate for osteoporosis since 2014. PAST MEDICAL HISTORY: Reviewed and updated ALLERGIES: Reviewed and updated MEDICATIONS: Reviewed and updated Current Outpatient Prescriptions: ipratropium-albuterol (DUONEB) 0.5 mg-3 mg(2.5 mg base)/3 mL nebu Inhale 3 mL as instructed every 4 hours as needed. levothyroxine (LEVOXYL) 112 mcg tablet Take 1 tablet by mouth once daily. Take on empty stomach. For thyroid. OLANZapine (ZYPREXA) 5 mg tablet Take 1 tablet by mouth daily at bedtime. traZODone (DESYREL) 50 mg tablet Take 50 mg by mouth daily at bedtime. divalproex DR (DEPAKOTE) 250 mg EC tablet Take 2 tablets by mouth daily at bedtime. potassium chloride ER (K-DUR, KLOR-CON) 20 mEq tablet Take 1 tablet by mouth once daily. simvastatin (ZOCOR) 20 mg tablet Take 1 tablet by mouth daily at bedtime. furosemide (LASIX) 40 mg tablet Take 1 tablet by mouth twice daily. Loperamide HCl (IMODIUM) 2 mg tab Take 2 mg by mouth every 2 hours as needed. citalopram hydrobromide (CELEXA) 10 mg tablet Take 1 tablet by mouth once daily. acetaminophen (TYLENOL) 325 mg tablet Take 2 tablets by mouth every 4 hours as needed for Pain. magnesium hydroxide (MOM) 400 mg/5 mL suspension Take 30 mL by mouth once daily as needed. polyethylene glycol 3350 (MIRALAX) 17 gram/dose powder Mix 1 scoop in 8 oz of water and drink every other day for constipation calcium carbonate 600 mg-cholecalciferol 200 units (CALCIUM 600 + D,3,) 600 mg(1,500mg) -200 unit tab Take 1 tablet by mouth twice daily. Vit C-Vit S-Jnynrd-DnAi-Lutein (PRESERVISION LUTEIN) 226 mg- 200 unit -5 mg-0.8 mg cap Take 1 capsule by mouth every evening. aspirin(ECOTRIN LOW STRENGTH 81 MG TAB) Take one(1) tablet daily. Omeprazole 40 mg capsule Take 1 capsule by mouth once daily. cholecalciferol (VITAMIN D-3) 2,000 unit tablet Take 1 tablet by mouth once daily. Compression Knee Highs KNEE HIGH COMPRESSION STOCKINGS 20- 30 MM. DX: EDEMA senna (SENNA) 8.6 mg tab Take 2 tablets by mouth twice daily as needed. No current facility-administered medications for this visit. SOCIAL HISTORY: Reviewed and updated FAMILY HISTORY: Reviewed and updated REVIEW OF SYSTEMS GENERAL: No weight loss, malaise or fevers RESPIRATORY: Shortness of breath, no cough or wheezing. CARDIOVASCULAR: Negative for chest pain. Positive for leg swelling. GI: See HPI : Negative MUSCULOSKELETAL: General weakness, unsteady gait. NEURO: See HPi. All other systems reviewed and negative, other than HPI. PHYSICAL EXAMINATION BP 134/72 Pulse 84 Temp (Src) 97.4 (Left Tympanic) Resp 12 Wt 284 lb 6.4 oz (129.0kg) SpO2 94% General appearance: Obese, Wheelchair bound, no distress. Lungs: Few rhonchi at the bases. Heart: RRR without murmur, gallop, or rubs. No ectopy Abdomen: Abdomen soft, non-tender. Bowel sounds normal. No masses, organomegaly Extremities: Edema: 2+. 1. I have reviewed the patient record including associated test results during the last hospitalization Yes 2. I have reviewed Lab test Yes 3. I have reviewed Radiology test Yes 4. I reviewed assessment/plan with the patient/family member Yes ASSESSMENT/PLAN: 1. Hypoxia - ICD9: 799.02, ICD10: R09.02 (primary diagnosis) Continue current treatments including O2 via NC at 3 LPM. - IPRATROPIUM-ALBUTEROL 0.5 MG-3 MG(2.5 MG BASE)/3 ML NEBULIZATION SOLN 2. Atelectasis - ICD9: 518.0, ICD10: J98.11 Deep breathing exercises. - CONSULT TO PHYSICAL THERAPY 3. Bronchiectasis without complication (HCC) - ICD9: 494.0, ICD10: J47.9 Improved. Options discussed. We agreed to defer on pulmonary consultation at this time. - IPRATROPIUM-ALBUTEROL 0.5 MG-3 MG(2.5 MG BASE)/3 ML NEBULIZATION SOLN 4. Hiatal hernia - ICD9: 553.3, ICD10: K44.9 Reviewed. 5. Gastroesophageal reflux disease, esophagitis presence not specified - ICD9: 530.81, ICD10: K21.9 Dose increased. Discussed medication dosage, usage, goals of therapy, and side effects. - OMEPRAZOLE 40 MG CAPSULE,DELAYED RELEASE 6. Edema, unspecified type - ICD9: 782.3, ICD10: R60.9 Continue current treatments. 7. Unsteady gait - ICD9: 781.2, ICD10: R26.81 - CONSULT TO PHYSICAL THERAPY 8. Osteoporosis, unspecified osteoporosis type, unspecified pathological fracture presence - ICD9: 733.00, ICD10: M81.0 Discontinue ALENDRONATE to to risks of esophagitis. Ryan Chavis MD CNOV Observed: 07/09/2018 Status: COMPLETED Source: [place] 11:00 AM [facility] REPOSITORY Office Visit (INTMWS) ROSALINA SMALLS ([id number]) 1940 F Date Time Provider Department 07/09/18 11:00 AM RYAN CHAVIS During your visit today, we recorded the following information about you: Temperature Pulse Respiration Blood pressure 97.4 degrees 84/minute 12/minute 134/72 Weight 129 kg Tasneem García LPN 07/09/2018 11:42 AM Signed TRANSITION CARE MANAGEMENT (TCM) INITIAL CONTACT Marketing Traffic Coordinator Outreach ? Provider Action/FYI: ? ? ? Initial contact with patient post discharge, spoke to caregiver. Patient identified by name and . ? TRANSITION CARE MANAGEMENT INITIAL OUTREACH DOCUMENTATION: No flowsheet data found. ? SUMMARY: -Pt discharged from [facility] on 06/29/18. -Admitted for: hypoxemia ? Do you have a hospital follow up appointment with your PCP? Appointment on 07/09/18 with pcp. . ? No. Assist patient with follow-up appointment within 1-14 calendar days from discharge date. If patient prefers not to schedule follow- up appointment at this time, notify PCP. ? MEDICATIONS: Many patients have questions or concerns about their medications once they are home. Were you prescribed any new medications? O2 and duoneb via aerosol four times a day ? Were you told to hold any medications? No Were any of your medications discontinued? No ? Do you have any questions about getting or taking your medications? No Reviewed discharge meds from [facility] and med list from [place]. 1.[place] reports pt is taking lasix 40 mg one twice daily. 2. Pt is taking vitamin D 3 2000 units daily ? Your discharge instructions/After visit Summary (AVS) are important in guiding you through the recovery process. Is there anything I might help you understand? No ? Do you have all the necessary equipment and supplies at home? Yes ? Medical records from recent hospitalization: Placed for provider to review Transitional Care Management Progress Note The patients TCM visit was performed within the 14 days of discharge. TCM Eligibility Documentation The following information was gathered during the initial Patient Outreach Encounter. No flowsheet data found. If no data exists please enter it manually. If data exists please delete date of discharge and date of initial contact seen below. Patient's Date of discharge: 06/29/2018 Date of initial coordinator contact after discharge: 07/03/2018 Discharge diagnosis: Hypoxemia Medication review completed Yes Tasneem E Ricky [employer] INSPECTOR Provider Documentation: In follow-up of hospitalization, Rosalina Smalls is a 77 year old female with the chief complaint of n/a I have reviewed the patient?s last hospital course including diagnostic testing performed during this hospitalization, their discharge medications, and my assessment and plan with the patient and any family members present at today?s visit. Ryan Chavis MD 07/09/2018 12:09 PM Signed CONSULT PHYSICAL THERAPY. DISCONTINUE ALENDRONATE. OMEPRAZOLE INCREASED TO 40 MG DAILY. Ryan Chavis MD 07/09/2018 2:24 PM Signed Note TRANSITION CARE MANAGEMENT (TCM) INITIAL CONTACT Marketing Traffic Coordinator Outreach ? Provider Action/FYI: ? ? ? Initial contact with patient post discharge, spoke to caregiver. Patient identified by name and . ? TRANSITION CARE MANAGEMENT INITIAL OUTREACH DOCUMENTATION: No flowsheet data found. ? SUMMARY: -Pt discharged from [facility] on 06/29/18. -Admitted for: hypoxemia ? Do you have a hospital follow up appointment with your PCP? Appointment on 07/09/18 with pcp. . ? No. Assist patient with follow-up appointment within 1-14 calendar days from discharge date. If patient prefers not to schedule follow- up appointment at this time, notify PCP. ? MEDICATIONS: Many patients have questions or concerns about their medications once they are home. Were you prescribed any new medications? O2 and duoneb via aerosol four times a day ? Were you told to hold any medications? No Were any of your medications discontinued? No ? Do you have any questions about getting or taking your medications? No Reviewed discharge meds from [facility] and med list from [place]. 1.[place] reports pt is taking lasix 40 mg one twice daily. 2. Pt is taking vitamin D 3 2000 units daily ? Your discharge instructions/After visit Summary (AVS) are important in guiding you through the recovery process. Is there anything I might help you understand? No ? Do you have all the necessary equipment and supplies at home? Yes ? Medical records from recent hospitalization: Placed for provider to review Transitional Care Management Progress Note The patients TCM visit was performed within the 14 days of discharge. Patient's Date of discharge: 06/29/18 Date of initial coordinator contact after discharge: 07/03/2018 Discharge diagnosis: Hypoxia. Medication review completed Yes Ryan Chavis MD Provider Documentation: In follow-up of hospitalization, Rosalina Smalls is a 77 year old female with the chief complaint of transition of care. I have reviewed the patient?s last hospital course including diagnostic testing performed during this hospitalization, their discharge medications, and my assessment and plan with the patient and any family members present at today?s visit. HPI: Rosalina Smalls developed increased edema and dyspnea. I was trying to manage as an outpatient but she got worse with hypoxemia and was admitted at the local hospital. She was evaluated and ruled out for congestive heart failure or pulmonary embolism. Diuresis was continued, and oxygen was added. Pulmonary doctor Maine Crook saw her. She was doing much better. She continued to be sedentary. One of the concerns was acid reflux. She had intermittent acute acid reflux with nausea and vomiting. She was on omeprazole 20 gm daily. She was also on alendronate for osteoporosis since 2015. PAST MEDICAL HISTORY: Reviewed and updated ALLERGIES: Reviewed and updated MEDICATIONS: Reviewed and updated Current Outpatient Prescriptions: ipratropium-albuterol (DUONEB) 0.5 mg-3 mg(2.5 mg base)/3 mL nebu Inhale 3 mL as instructed every 4 hours as needed. levothyroxine (LEVOXYL) 112 mcg tablet Take 1 tablet by mouth once daily. Take on empty stomach. For thyroid. OLANZapine (ZYPREXA) 5 mg tablet Take 1 tablet by mouth daily at bedtime. traZODone (DESYREL) 50 mg tablet Take 50 mg by mouth daily at bedtime. divalproex DR (DEPAKOTE) 250 mg EC tablet Take 2 tablets by mouth daily at bedtime. potassium chloride ER (K-DUR, KLOR-CON) 20 mEq tablet Take 1 tablet by mouth once daily. simvastatin (ZOCOR) 20 mg tablet Take 1 tablet by mouth daily at bedtime. furosemide (LASIX) 40 mg tablet Take 1 tablet by mouth twice daily. Loperamide HCl (IMODIUM) 2 mg tab Take 2 mg by mouth every 2 hours as needed. citalopram hydrobromide (CELEXA) 10 mg tablet Take 1 tablet by mouth once daily. acetaminophen (TYLENOL) 325 mg tablet Take 2 tablets by mouth every 4 hours as needed for Pain. magnesium hydroxide (MOM) 400 mg/5 mL suspension Take 30 mL by mouth once daily as needed. polyethylene glycol 3350 (MIRALAX) 17 gram/dose powder Mix 1 scoop in 8 oz of water and drink every other day for constipation calcium carbonate 600 mg-cholecalciferol 200 units (CALCIUM 600 + D,3,) 600 mg(1,500mg) -200 unit tab Take 1 tablet by mouth twice daily. Vit C-Vit K-Mosaqx-RvKy-Lutein (PRESERVISION LUTEIN) 226 mg- 200 unit -5 mg-0.8 mg cap Take 1 capsule by mouth every evening. aspirin(ECOTRIN LOW STRENGTH 81 MG TAB) Take one(1) tablet daily. Omeprazole 40 mg capsule Take 1 capsule by mouth once daily. cholecalciferol (VITAMIN D-3) 2,000 unit tablet Take 1 tablet by mouth once daily. Compression Knee Highs KNEE HIGH COMPRESSION STOCKINGS 20- 30 MM. DX: EDEMA senna (SENNA) 8.6 mg tab Take 2 tablets by mouth twice daily as needed. No current facility-administered medications for this visit. SOCIAL HISTORY: Reviewed and updated FAMILY HISTORY: Reviewed and updated REVIEW OF SYSTEMS GENERAL: No weight loss, malaise or fevers RESPIRATORY: Shortness of breath, no cough or wheezing. CARDIOVASCULAR: Negative for chest pain. Positive for leg swelling. GI: See HPI : Negative MUSCULOSKELETAL: General weakness, unsteady gait. NEURO: See HPi. All other systems reviewed and negative, other than HPI. PHYSICAL EXAMINATION BP 134/72 Pulse 84 Temp (Src) 97.4 (Left Tympanic) Resp 12 Wt 284 lb 6.4 oz (129.0kg) SpO2 94% General appearance: Obese, Wheelchair bound, no distress. Lungs: Few rhonchi at the bases. Heart: RRR without murmur, gallop, or rubs. No ectopy Abdomen: Abdomen soft, non-tender. Bowel sounds normal. No masses, organomegaly Extremities: Edema: 2+. 1. I have reviewed the patient record including associated test results during the last hospitalization Yes 2. I have reviewed Lab test Yes 3. I have reviewed Radiology test Yes 4. I reviewed assessment/plan with the patient/family member Yes ASSESSMENT/PLAN: 1. Hypoxia - ICD9: 799.02, ICD10: R09.02 (primary diagnosis) Continue current treatments including O2 via NC at 3 LPM. - IPRATROPIUM-ALBUTEROL 0.5 MG-3 MG(2.5 MG BASE)/3 ML NEBULIZATION SOLN 2. Atelectasis - ICD9: 518.0, ICD10: J98.11 Deep breathing exercises. - CONSULT TO PHYSICAL THERAPY 3. Bronchiectasis without complication (HCC) - ICD9: 494.0, ICD10: J47.9 Improved. Options discussed. We agreed to defer on pulmonary consultation at this time. - IPRATROPIUM-ALBUTEROL 0.5 MG-3 MG(2.5 MG BASE)/3 ML NEBULIZATION SOLN 4. Hiatal hernia - ICD9: 553.3, ICD10: K44.9 Reviewed. 5. Gastroesophageal reflux disease, esophagitis presence not specified - ICD9: 530.81, ICD10: K21.9 Dose increased. Discussed medication dosage, usage, goals of therapy, and side effects. - OMEPRAZOLE 40 MG CAPSULE,DELAYED RELEASE 6. Edema, unspecified type - ICD9: 782.3, ICD10: R60.9 Continue current treatments. 7. Unsteady gait - ICD9: 781.2, ICD10: R26.81 - CONSULT TO PHYSICAL THERAPY 8. Osteoporosis, unspecified osteoporosis type, unspecified pathological fracture presence - ICD9: 733.00, ICD10: M81.0 Discontinue ALENDRONATE to to risks of esophagitis. Ryan Chavis MD Referring Provider: SELF [[id number]] Allergies As of Date: 07/09/2018 Noted Allergy Reaction CONTRAST DYE 04/16/2007 4 - Hives MOLDS EXTRACT 10/14/2010 4 - Hives PENICILLINS 11/01/2006 Comments: mold allergy Date Reviewed: 07/09/2018 Reviewed by: Tasneem García LPN - Fully Assessed Reason for Visit: Hospital F/U [57] Primary Visit Diagnosis:Hypoxia [R09.02] Other Visit Diagnoses:Atelectasis [J98.11] Bronchiectasis without complication (HCC) [J47.9] Hiatal hernia [K44.9] Gastroesophageal reflux disease, esophagitis presence not specified [K21.9] Edema, unspecified type [R60.9] Unsteady gait [R26.81] Osteoporosis, unspecified osteoporosis type, unspecified pathological fracture presence [M81.0] Constipation, unspecified constipation type [K59.00] Order(s):Omeprazole 40 mg capsuleTake 1 capsule by mouth once daily.Disp: 30 capsuleRfl: 5 CONSULT TO PHYSICAL THERAPY [5941] Order #: [id number]: 1 Prescriptions as of 07/09/2018 Sig: IPRATROPIUM-ALBUTEROL 0.5 MG-* Inhale 3 mL as instructed jana* LEVOTHYROXINE 112 MCG TABLET Take 1 tablet by mouth once d* OLANZAPINE 5 MG TABLET Take 1 tablet by mouth daily * TRAZODONE 50 MG TABLET Take 50 mg by mouth daily at * DIVALPROEX 250 MG TABLET,ZOILA* Take 2 tablets by mouth daily* POTASSIUM CHLORIDE ER 20 MEQ * Take 1 tablet by mouth once d* SIMVASTATIN 20 MG TABLET Take 1 tablet by mouth daily * FUROSEMIDE 40 MG TABLET Take 1 tablet by mouth twice * LOPERAMIDE 2 MG TABLET Take 2 mg by mouth every 2 ho* CITALOPRAM 10 MG TABLET Take 1 tablet by mouth once d* ACETAMINOPHEN 325 MG TABLET Take 2 tablets by mouth every* MAGNESIUM HYDROXIDE 400 MG/5 * Take 30 mL by mouth once mami* POLYETHYLENE GLYCOL 3350 17 G* Mix 1 scoop in 8 oz of water * CALCIUM CARBONATE 600 MG (1,5* Take 1 tablet by mouth twice * VIT C-VIT Y-WQCISP-RHVA OX-FEMI* Take 1 capsule by mouth every* ECOTRIN LOW STRENGTH 81 MG TA* Take one(1) tablet daily. OMEPRAZOLE 40 MG CAPSULE,ZOILA* Take 1 capsule by mouth once * CHOLECALCIFEROL (VITAMIN D3) * Take 1 tablet by mouth once d* COMPOUNDED PRESCRIPTION KNEE HIGH COMPRESSION STOCKIN* SENNOSIDES 8.6 MG TABLET Take 2 tablets by mouth twice* Medication notes this encounter IBUPROFEN 600 MG TABLET >> Tasneem García LPN 07/09/2018 11:38 AM >> TASNEEM GARCÍA LPN MonJul 09, 2018 11:38 AM Not on Hospital discharge med list. CHOLECALCIFEROL (VITAMIN D3) 2,000 UNIT TABLET >> Tasneem García LPN 07/09/2018 11:38 AM >> TASNEEM GARCÍA LPN MonJul 09, 2018 11:38 AM Not on Hospital discharge med list. SENNOSIDES 8.6 MG TABLET >> Tasneem García LPN 07/09/2018 11:39 AM >> TASNEEM GARCÍA LPN MonJul 09, 2018 11:39 AM Not on Hospital discharge med list. Problem List As Of Date 07/09/2018 Noted Resolved HYPERLIPIDEMIA NEC/NOS [E78.5] 04/16/2007 Anxiety state [F41.1] Hypothyroidism [E03.9] Pain in joint, site unspecified [M25.50] 10/27/2011 EDEMA [R60.9] Hyperlipidemia [E78.5] INVALID FOR* Osteoporosis [M81.0] INVALID FOR* More... Unspecified vitamin D deficiency [E55.9] INVALID FOR*05/01/2012 Actinic keratosis [L57.0] INVALID FOR*11/03/2010 Inflamed seborrheic keratosis [L82.0] INVALID FOR*11/03/2010 Other seborrheic keratosis [L82.1] INVALID FOR*11/03/2010 SOLAR LENGINES///DYSCHROMIA OTHER [L81.9] INVALID FOR*11/03/2010 Other chronic dermatitis due to solar radiation*INVALID FOR*11/12/2013 Scar condition and fibrosis of skin [L90.5] INVALID FOR*11/03/2010 Open wound site NOS [T14.8XXA] INVALID FOR*11/03/2010 HISTORY OF GRAVES DISEASE [E05.00] INVALID FOR*11/03/2010 Constipation [K59.00] INVALID FOR* INSOMNIA NOS [G47.00] INVALID FOR* Essential hypertension [I10] INVALID FOR* Abdominal pain, other specified site [R10.9] INVALID FOR*11/03/2010 Diverticulosis of colon (without mention of hem*INVALID FOR*10/27/2011 Irritable bowel syndrome [K58.9] INVALID FOR*05/12/2016 Anemia [D64.9] INVALID FOR*11/12/2013 Severe recurrent major depressive disorder with*INVALID FOR* Irritated//Inflamed Seborrheic Keratosis [L82.0]INVALID FOR*11/18/2014 Other seborrheic keratosis [L82.1] INVALID FOR* Solar lentigo [L81.4] INVALID FOR*05/12/2016 Actinic skin damage [L57.8] INVALID FOR*05/12/2016 [place]ton angioma [D18.01] INVALID FOR*05/12/2016 Cutaneous skin tags [L91.8] INVALID FOR*05/12/2016 Fibrocystic breast changes [N60.19] INVALID FOR*05/12/2016 Dementia associated with other underlying disea*INVALID FOR* Bipolar affective disorder, current episode man*INVALID FOR* Unsteady gait [R26.81] INVALID FOR* S/P ORIF (open reduction internal fixation) fra*INVALID FOR* Hyperparathyroidism (HCC) [E21.3] INVALID FOR* Anemia due to blood loss [D50.0] INVALID FOR*03/30/2018 Gastroesophageal reflux disease [K21.9] INVALID FOR* Bronchiectasis without complication (HCC) [J47.*INVALID FOR* Hiatal hernia [K44.9] INVALID FOR* Other instructions from your clinician: CONSULT PHYSICAL THERAPY. DISCONTINUE ALENDRONATE. OMEPRAZOLE INCREASED TO 40 MG DAILY. Visit Notes: >> Tasneem García LPN Mon Jul 09, 2018 11:23 AM Status: Signed TRANSITION CARE MANAGEMENT (TCM) INITIAL CONTACT Marketing Traffic Coordinator Outreach ? Provider Action/FYI: ? ? ? Initial contact with patient post discharge, spoke to caregiver. Patient identified by name and . ? TRANSITION CARE MANAGEMENT INITIAL OUTREACH DOCUMENTATION: No flowsheet data found. ? SUMMARY: -Pt discharged from [facility] on 06/29/18. -Admitted for: hypoxemia ? Do you have a hospital follow up appointment with your PCP? Appointment on 07/09/18 with pcp. . ? No. Assist patient with follow-up appointment within 1-14 calendar days from discharge date. If patient prefers not to schedule follow-up appointment at this time, notify PCP. ? MEDICATIONS: Many patients have questions or concerns about their medications once they are home. Were you prescribed any new medications? O2 and duoneb via aerosol four times a day ? Were you told to hold any medications? No Were any of your medications discontinued? No ? Do you have any questions about getting or taking your medications? No Reviewed discharge meds from [facility] and med list from [facility]. 1.[facility] reports pt is taking lasix 40 mg one twice daily. 2. Pt is taking vitamin D 3 2000 units daily ? Your discharge instructions/After visit Summary (AVS) are important in guiding you through the recovery process. Is there anything I might help you understand? No ? Do you have all the necessary equipment and supplies at home? Yes ? Medical records from recent hospitalization: Placed for provider to review Transitional Care Management Progress Note The patients TCM visit was performed within the 14 days of discharge. TCM Eligibility Documentation The following information was gathered during the initial Patient Outreach Encounter. No flowsheet data found. If no data exists please enter it manually. If data exists please delete date of discharge and date of initial contact seen below. Patient's Date of discharge: 06/29/2018 Date of initial coordinator contact after discharge: 07/03/2018 Discharge diagnosis: Hypoxemia Medication review completed Yes Tasneem García LPN Provider Documentation: In follow-up of hospitalization, Rosalina Smalls is a 77 year old female with the chief complaint of n/a I have reviewed the patient?s last hospital course including diagnostic testing performed during this hospitalization, their discharge medications, and my assessment and plan with the patient and any family members present at today?s visit. Prescriptions ordered this encounter Disp Refills Start End OMEPRAZOLE 40 MG CAPSULE,DELAYED REL* 30 c* 5 07/09/2018 Route: ORAL Sig: Take 1 capsule by mouth once daily. Medications Discontinued During This Encounter ibuprofen (MOTRIN) 600 mg tablet 60 t* 0 05/25/2018 07/09/2018 Route: ORAL Sig: Take 1 tablet by mouth twice daily as needed for Pain. Patient not taking: Reported on 07/09/2018 Disc: Reason for discontinue is not on file. omeprazole (PRILOSEC) 20 mg capsule 30 c* 5 06/13/2018 07/09/2018 Cmt: Maximum Refills Reached Sig: TAKE 1 CAPSULE BY MOUTH DAILY BEFORE BREAKFAST, 1/2 HOUR BEFORE MEAL Disc: Reason for discontinue is not on file. alendronate (FOSAMAX) 70 mg tablet 4 ta* 11 04/06/2018 07/09/2018 Cmt: Maximum Refills Reached Sig: TAKE 1 TABLET WEEKLY WITH A FULL GLASS OF WATER ON AN EMPTY STOMACH *DO NOT LIE DOWN FOR 30 MIN* Disc: Clinical Decision Disposition: Return in about 3 months (around 10/09/2018), or if symptoms worsen or fail to improve. Follow-up and Disposition History Recorded Encounter Status:Closed by RYAN CHAVIS MD on 07/09/18 CONSULTATION Observed: 06/30/2018 Status: F Source: [place] 5:33 AM [facility] REPOSITORY [facility] Medical Records Department [address] [place] [address] Consultation 06/29/18 1023 MR#: [id number] Acct: [id number] Name: ROSALINA SMALLS Rep #: [id number] : 1940 77 From: Raghav Crook MD PCP: Ryan Chavis MD Status: DIS IN Y Location: [place] [id number] Problem List (1) Hypoxemia Status: Acute (2) Osteoarthritis Status: Chronic (3) Hyperparathyroidism Status: Chronic Comment: PTH is 140 on 05/25 (4) Insomnia Status: Chronic (5) Osteoporosis Status: Chronic (6) HTN (hypertension) Status: Chronic (7) Bipolar disorder Status: Chronic (8) Dyslipidemia Status: Chronic (9) Hypothyroidism Status: Chronic (10) Depression Status: Chronic Reason for Consult Date of Consultation: 06/29/18 Reason for Consultation: Hypoxemia History of Present Illness: The patient is a 77 year old F, with past medical history listed below, who presented to [facility] 06/[facility]/2018 secondary to wheezing and hypoxemia. Patient reportedly has a history of chronic lymphedema of the legs, but was brought in by EMS from her senior care secondary to hypoxemia. Patient was evaluated in the emergency room and received a steroid and Benadryl. There was some concern for pleural effusion, so patient had a CTPA. Patient was admitted to the floor and initiated on nasal cannula oxygen. Patient reports she has never been on nasal cannula oxygen. Patient is pleasantly confused at this time and not able to provide much history. Patient does deny a daily cough. Patient is not dyspneic or reporting chest pain at this time. Patient does report GERD type symptoms routinely. Patient reports she is nonambulatory at baseline. Most of the history is from the electronic medical record. Patient reportedly was seen by her POA and thought that there was nothing different in her overall appearance. Patient denied any dyspnea during my evaluation. Patient states she has never been on supplemental oxygen previously. Patient has worked in nursing homes in the past, but denies any history of tuberculosis. Unable to obtain a reliable review of systems secondary to mental status otherwise. Past Medical History Past Medical History (Chronic Problems): Chronic Problems Osteoarthritis (Chronic) Hypokalemia (Chronic) Hyperlipidemia (Chronic) Hyperparathyroidism (Chronic) PTH is 140 on 05/25 Insomnia (Chronic) Osteoporosis (Chronic) HTN (hypertension) (Chronic) Bipolar disorder (Chronic) Dyslipidemia (Chronic) Hypothyroidism (Chronic) Depression (Chronic) Allergies mold Allergy (Verified 05/23/17 20:25) Unknown Penicillins Allergy (Verified 05/23/17 20:25) Unknown IVP DYE Allergy (Uncoded 05/23/17 20:25) Hives Home Medications: Ambulatory Orders Medication Instructions Recorded Alendronate Sodium [Fosamax] 70 mg PO Q7D@0700 05/14/16 Aspirin [Aspirin, Baby] 81 mg PO DAILY@0800 05/14/16 Calcium Carbonate/Vitamin D3 1 each PO DAILY 05/14/16 Surgical History: total hip arthroplasty, - - hip replacement Psychiatric History: Bipolar, Depression, - - unspecified PUBLICATIONS INSPECTOR History: No pertinent PUBLICATIONS INSPECTOR history Lives: Prison Smoking Status: Never smoker - *Family History Maternal History Items: No pertinent history Paternal History Items: No pertinent history Review of Systems Unable to obtain accurate/complete ROS d/t: See HPI Patient Problems: Active and Suspected Problems Hypoxemia (Acute) Objective: CT of the chest was personally reviewed. This does show an area of bronchiectasis in the right lower lobe and a large hiatal hernia. There is no significant basilar fibrosis noted. No emphysematous changes are appreciated. No pulmonary embolism. - Physical Exam General: Alert, Cooperative, No apparent distress, Confused, - - Obese. Speaking in full sentences. HEENT: Atraumatic, PERRLA, EOMI, Normocephalic, - - Last is in place. No scleral icterus or injection noted. Oral: Moist Mucosa, No Gingival or Mucosal Lesions/ Ulcerations Neck: Supple, No JVD, No Nodes, Trachea Midline Lungs: No rhonchi, No wheeze, No rales, Diminished Cardiovascular: Regular rate, Regular Rhythm, Normal S1, Normal S2, No murmurs, No rub noted, No Gallop Abdomen: Bowel Sounds Present, Soft, Non Tender, Non-Distended, Obese Extremities: No clubbing, No cyanosis, Edema - 2-3+ pitting edema Skin: - - Venous stasis changes the lower extremity Musculoskeletal: No Tenderness to Palpation of Joints or Extremities, No Muscle Wasting Lymphatic: No Cervical, Supraclavicular, or Inguinal Adenopathy Neurological: Cranial nerves II-XII grossly intact, Neuro grossly intact Psych/Mental Status: Normal Affect, Appropriate Vital Signs Temp Pulse Resp BP Pulse Ox 36.7 C 67 18 112/56 L 96 06/29/18 09:58 06/29/18 09:58 06/29/18 09:58 06/29/18 09:58 06/29/18 09:58 Oxygen Flow Rate (L/min) 3 Oxygen Delivery Method Nasal Cannula Weight: 84.9 kg Body Mass Index (BMI) 36.5 Intake and Output for Last 24 Hours Intake Total 1915 / 1915 1038 / 1038 Output Total 300 / 300 Balance 1615 / 1615 1038 / 1038 Microbiology Past 72 Hours 06/28/18 Unknown Respiratory Panel (PCR) - Final Mucosa - Nasopharyngeal Laboratory Tests Past 24 Hrs Specimen Type ART Sample Site L Radial pH 7.46 H Bicarbonate Actual 30.6 H POC Total CO2 32 Base Excess 7 H Clinical Impression(s) from Imaging Studies Chest X-Ray 06/28/18 00:09 IMPRESSION: Chronic lung changes. Basilar atelectasis/scarring. No focal consolidation. Electronically Signed: Eliseo Oliver, at 1:16 EDT Tel , Service support , Chest CTA 06/28/18 01:14 IMPRESSION: No pulmonary embolism. Atherosclerotic disease of the aorta without aneurysm or dissection. 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 Small bilateral pleural effusions with adjacent atelectasis/infiltrates. No focal consolidation. Large hiatal hernia. Other findings as above. Electronically Signed: Eliseo Oliver, at 4:22 EDT Tel , Service support , Assessment/Plan All Active Problems Hypoxemia (Acute) RECOMMENDATIONS: 1. Continue supplemental oxygen to maintain saturations greater than 90% 2. Continue baseline PPI 3. Initiation of Acapella therapy 4. Okay to discharge from my perspective IMPRESSIONS: 1. Hypoxemia This is likely multifactorial. Patient does have a history of diastolic dysfunction requiring Lasix therapy. Patient does not appear to be in acute overload on CT scan of the chest. Patient does have a large hiatal hernia, likely leading to some restrictive defects. Given patient's goals of therapy (Comfort Care) treatment with supplemental oxygen is likely appropriate. Patient could have surgical intervention for reduction of hiatal hernia. Patient does have a PPI at baseline. Incidental bronchiectasis noted of the right lower lobe. This is likely secondary to acid reflux given large hiatal hernia and reports of chronic heartburn. 2. Dementia/debility/hypertension/bipolar/hyperlipidemia/advanced age Complicates care, management, recovery and prognosis. Okay to continue with baseline medications Code Visit Inpatient E AND M: [id number] Init Hosp L2 06/30/18 0533 <Electronically signed by Raghav Crook MD> Date Raghav Crook MD Cosigner Signature (if applicable): Date CC: Raghav Crook MD; Ryan Chavis MD Signed DISCHARGE SUMMARY Observed: 06/29/2018 Status: F Source: [place] 11:59 AM [facility] REPOSITORY [facility] Medical Records Department [address] [place] [address] Discharge Summary 06/28/18 1536 MR#: [id number] Acct: [id number] Name: ROSALINA SMALLS Rep #: [id number] : 1940 77 From: Ruiz CORLEY PCP: Ryan Chavis MD Status: ADM IN Y Location: [facility] HP309-8 ADDENDUM by Nikolas Morley DO on 06/29/18 at 1158 Code Visit Patient was seen and examined today independently of Ruiz Mathur, she will need supplemental oxygen at her assisted living facility, this was set up and she was placed on 3 L via nasal cannula. Pulmonary medicine saw the patient today and there are no additional recommendations other than supplemental oxygen. Patient appears alert and in no distress. I have reviewed Ruiz Mathur's discharge summary and concur. Inpatient E AND M: [id number] Disch Hosp 06/29/18 1159 <Electronically signed by Nikolas Morley DO> Date Nikolas Morley DO cc: BARNEY Mathur; Nikolas Morley DO; Ryan Chavis MD * Signed ADDENDUM by BARNEY Mathur on 06/29/18 at 1123 Code Visit This discharge summary will serve for 06/29/2018 as the discharge was pushed by 1 day for further eval. Please note the following further pieces of information The CT showed large hiatal hernia, atelectasis, bronchiectasis. Pulmonology felt that this was likely the etiology of her hypoxia with further note that the hiatal hernia was likely contributing to reflux which likely led to the bronchiectasis. She is already on a PPI and should continue this. Pulmonary does not recommend any changes to her care at this time, other than going home on oxygen and following up in the office in 3 weeks (Dr. Crook). The patient continued to have no further complaints but does remain on 3lpm O2 via NC at rest. This patient was seen by Ruiz Mathur PA-C under the supervision of Doctor Elia Physical exam on day of discharge: General: Resting comfortably NAD Psych: A/Ox3 normal affect HEENT: PEARRLA AT NC Neck: Supple NT CV: RRR no m/t/r/g/h Resp: CTA Abd: [id number] Soft NT no guarding or rigidity Ext: DP2+= no edema Skin: W/D normal turgor Lymph/Heme: No active bleeding or adenopathy Neuro: CN2-12 intact. 06/29/18 1123 <Electronically signed by Ruiz CORLEY> Date Ruiz Mathur cc: BARNEY Mathur; Nikolas Morley DO; Ryan Chavis MD * Signed ADDENDUM by Nikolas Morley DO on 06/28/18 at 1917 Code Visit Patient was seen and examined this afternoon independently of Ruiz Mathur, I felt that the patient should be kept in the hospital until tomorrow and have pulmonary medicine perform a consult on the patient to rule out any correctable reasons why she is hypoxic. Patient was okay with this and I talked with the patient and the patient's who is in the room this afternoon. Patient's discharge was canceled, she will need home O2 set up tomorrow and pulmonary medicine will evaluate the patient in the morning to give any suggestions. 06/28/181916 <Electronically signed by Nikolas Morley DO> Date Nikolas Morley DO cc: BARNEY Mathur; Nikolas Morley DO; Ryan Chavis MD * Signed Discharge Date and Diagnosis Date of Admission: 06/28/18 Date of Discharge: 06/28/18 - Primary Discharge Diagnosis Acute hypoxia 2/2 atelectasis Dementia suspect Alzheimers with progressive decline Recent total hip with debility, bedbound Lymphedema HTN Bipolar disorder Hypothyroidism HLD - Secondary Discharge Diagnosis Chronic Problems Osteoarthritis (Chronic) Hypokalemia (Chronic) Hyperlipidemia (Chronic) Hyperparathyroidism (Chronic) PTH is 140 on 05/25 Insomnia (Chronic) Osteoporosis (Chronic) HTN (hypertension) (Chronic) Bipolar disorder (Chronic) Dyslipidemia (Chronic) Hypothyroidism (Chronic) Depression (Chronic) Hospital Course and Treatment Imaging Results: 06/28/18 07:03 Echo Complete [ECHO] Routine Echo demonstrates normal LV size, moderate LVH, EF 65%, mild TVI CT of the chest CT/CTA Chest W/WO Contrast IMPRESSION: No pulmonary embolism. Atherosclerotic disease of the aorta without aneurysm or dissection. 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 Small bilateral pleural effusions with adjacent atelectasis/infiltrates. No focal consolidation. Large hiatal hernia. Other findings as above. RAD/Chest 1 View (Portable) IMPRESSION: Chronic lung changes. Basilar atelectasis/scarring. No focal consolidation. Operations: None, - - ORIF R hip on 05/25/[address] Villa Procedures: 2-D Echocardiogram Summary of Care Provided: Physical exam on day of discharge: See daily progress note Hospital course: The patient is a 77 year old F with dementia with progressive decline over the last 3 years who presented to the emergency room with hypoxia is noted at [facility]. She was not with increased shortness of breath or cough. Chest x-ray showed atelectasis. CTA of the chest was done which showed atelectasis and small pleural effusions. Beta natruretic peptide was negative. Echocardiogram was obtained and was unremarkable with an EF of 65%. She was admitted to the medical surgical floor and placed on aerosols and given an incentive spirometer. She had waxing and waning mental status. Patient could not remember why she was here and did not remember our conversation. She continued to have no further shortness of breath or cough. She did continue to be hypoxic. She was placed on oxygen and will need to continue this going forward. The patient had a recent total hip repair and has been bedbound ever since. She has very little activity and likely has severe atelectasis. There are no indications of an acute process either infectious or congestive. She was discharged back to assisted living in stable condition. I discussed this with her power of assistant prosecuting attorney who was agreeable and did not feel that the patient had any acute process going on either. She understands that the patient has severe dementia progressively worsening over the past 3 years and that this is likely to continue to decline. The patient is DNR CC and will remain at this CODE STATUS at this time. I did order for her to have aerosol therapy at the assisted living along with the oxygen. This may or may not help her, she may ultimately need permanent oxygen to maintain good saturations if she does not use the incentive spirometer and remains bedbound. This patient was seen by Ruiz Mathur PA-C under the supervision of Doctor Peyman. [] Discharge Diet: No Restrictions Discharge Activity: Return to Normal Activity, - - Continue to use oxygen Home Medications: Medications to take at Discharge Alendronate Sodium [Fosamax] 70 mg PO Q7D@0705/14/16 Aspirin [Aspirin, Baby] 81 mg PO DAILY@79905/14/16 Calcium Carbonate/Vitamin D3 [Calcium 600-Vit D3 200 Tablet] 1 each PO DAILY 05/14/16 Furosemide [Lasix] 40 mg PO DAILY 05/14/16 Polyethylene Glycol 3350 [Miralax] 17 gm PO PRN PRN 05/14/16 Potassium Chloride [Klor-Con] 20 meq PO DAILY 05/14/16 Simvastatin [Zocor] 20 mg PO QHS 05/14/16 Vit A/Vit C/Vit E/Zinc/Copper [Preservision Areds Softgel] 1 each PO DAILY 05/14/16 traZODone [Desyrel] 50 mg PO QHS 05/14/16 Acetaminophen [Tylenol] 650 mg PO Q4H PRN PRN 03/27/17 Citalopram [Celexa] 10 mg PO DAILY 03/27/17 Olanzapine [Zyprexa Zydis] 1 tab PO DAILY 03/27/17 Levothyroxine [Synthroid] 112 mcg PO DAILY 05/23/17 Loperamide [Imodium] 2 mg PO Q2H PRN PRN 05/23/17 Magnesium Hydroxide [Milk of Magnesia] 30 ml PO DAILY PRN PRN 05/23/17 Divalproex Sodium 500 mg PO QHS 05/24/17 Albuterol Aerosols [Ventolin Aerosols] 2.5 mg INHALATION Q2H PRN PRN vial.neb. 06/28/18 Ipratropium/Albuterol Sulfate [Duoneb] 3 ml INHALATION Q4HWA.RT ampul.neb 06/28/18 Omeprazole 20 mg PO DAILY 06/28/18 Primary Care Physician: Ryan Chavis MD [Primary Care Provider] - Please follow up with your Primary Care Physician in: 1 week Disposition: Asstd Living/Non-Skill NH Minutes spent on discharge:: 40 Patient Condition:: Stable Medical Necessity - Tobacco Use Smoking Status: Never smoker Meaningful Use Info Meaningful Use Diagnoses (Choose all that apply): None applicable 06/28/18 1543 <Electronically signed by Ruiz CORLEY> Date Ruiz CORLEY 06/28/18 1916<Electronically signed by Nikolas Morley DO> Cosigner Signature (if applicable): Date Nikolas Morley DO CC: BARNEY Mathur; Nikolas Morley DO; Ryan Chavis MD Signed DISCHARGE INSTRUCTION Observed: 06/28/2018 Status: F Source: [place] 3:36 PM [facility] REPOSITORY [facility] Medical Records Department [address] [place] [address] Instructions for Home/Discharge Instructions 06/28/18 1535 MR#: [id number] Acct: [id number] Name: ROSALINA SMALLS Rep #: [id number] : 1940 77 From: Ruiz CORLEY PCP: Ryan Chavis MD Status: ADM IN You will use the following diet at home:: No restrictions Your food should be the consistency of: Regular Your liquids should be the consistency of: Regular/Thin Discharge Activity: Return to Normal Activity, - - Continue to use oxygen Allergies/Adverse Reactions: Allergies mold Allergy (Verified 05/23/17 20:25) Unknown Penicillins Allergy (Verified 05/23/17 20:25) Unknown IVP DYE Allergy (Uncoded 05/23/17 20:25) Hives Medications to take at Discharge Alendronate Sodium [Fosamax] 70 mg PO Q7D@0705/14/16 Aspirin [Aspirin, Baby] 81 mg PO DAILY@0805/14/16 Calcium Carbonate/Vitamin D3 [Calcium 600-Vit D3 200 Tablet] 1 each PO DAILY 05/14/16 Furosemide [Lasix] 40 mg PO DAILY 05/14/16 Polyethylene Glycol 3350 [Miralax] 17 gm PO PRN PRN 05/14/16 Potassium Chloride [Klor-Con] 20 meq PO DAILY 05/14/16 Simvastatin [Zocor] 20 mg PO QHS 05/14/16 Vit A/Vit C/Vit E/Zinc/Copper [Preservision Areds Softgel] 1 each PO DAILY 05/14/16 traZODone [Desyrel] 50 mg PO QHS 05/14/16 Acetaminophen [Tylenol] 650 mg PO Q4H PRN PRN 03/27/17 Citalopram [Celexa] 10 mg PO DAILY 03/27/17 Olanzapine [Zyprexa Zydis] 1 tab PO DAILY 03/27/17 Levothyroxine [Synthroid] 112 mcg PO DAILY 05/23/17 Loperamide [Imodium] 2 mg PO Q2H PRN PRN 05/23/17 Magnesium Hydroxide [Milk of Magnesia] 30 ml PO DAILY PRN PRN 05/23/17 Divalproex Sodium 500 mg PO QHS 05/24/17 Albuterol Aerosols [Ventolin Aerosols] 2.5 mg INHALATION Q2H PRN PRN vial.neb. 06/28/18 Ipratropium/Albuterol Sulfate [Duoneb] 3 ml INHALATION Q4HWA.RT ampul.neb 06/28/18 Omeprazole 20 mg PO DAILY 06/28/18 Primary Care Physician: Ryan Chavis MD [Primary Care Provider] - Please follow up with your Primary Care Physician in: 1 week Test Results: Test results from this visit will be discussed in further detail at your follow-up appointment, if applicable. Proposed Discharge Date: 06/28/18 06/28/18 1536 <Electronically signed by Ruiz CORLEY> Date Ruiz CORLEY CC: Ryan Chavis MD ECHOCARDIOGRAM COMPLETE Observed: 06/28/2018 Status: F Source: [place] 3:03 PM [facility] REPOSITORY [facility] Cardiovascular Services [address] [place] [address] Echo Complete 06/28/18919 MR#: [id number] Acct: [id number] Name: ROSALINA SMALLS Rep #: [id number] : 1940 77 From: Fredy Paniagua MD Attending Dr: Nikolas Morley DO Status: ADM IN Ordering Dr: Nahid López MD Date: 06/28/18 Location: [facility] Sex: F C Admitted: 06/28/18 Reason For Study: Hypoxia Procedure This was a 2D Doppler, Color Flow transthoracic echocardiogram. Technically difficult study, patient had a difficult time staying on her left side for testing. Exam performed portable in patient room. Left Ventricle Normal LV size. Moderate concentric left ventricular hypertrophy. Left ventricular systolic function is normal. The estimated ejection fraction is 65 %. No regional wall motion abnormalities noted. Right Ventricle Normal RV size. Normal systolic function. Atria Normal left atrium. Normal right atrium. Mitral Valve Normal mitral valve. Tricuspid Valve Normal tricuspid valve. Mild tricuspid valve insufficiency. Aortic Valve Trisinus/trileaflet aortic valve. Pulmonic Valve Normal pulmonic valve. Great Vessels Normal aortic root. The pulmonary artery is normal size. Normal inferior vena cava. Pericardium/Pleural No pericardial effusion. MMode/2D Measurements AND Calculations LVIDd: 3.2 cm IVSd: 1.5 cm Ao root diam: 3.4 cm LVIDs: 2.0 cm LVPWd: 1.3 cm LA dimension: 3.2 cm FS: 38.0 % Doppler Measurements AND Calculations Ao V2 max: 169.5 cm/sec LV V1 max: 141.4 cm/sec PA V2 max: 150.2 cm/sec Ao max P.5 mmHg LV V1 max P.0 mmHg Ao V2 mean: 120.0 cm/sec LV V1 mean P.4 mmHg Ao mean P.5 mmHg LV V1 mean: 98.0 cm/sec Ao V2 VTI: 32.5 cm LV V1 VTI: 26.2 cm Interpretation Summary Normal LV size. Moderate concentric left ventricular hypertrophy. Left ventricular systolic function is normal. The estimated ejection fraction is 65 %. Mild tricuspid valve insufficiency. Compared to prior study, there is no significant change. Ordering Physician: Nahid López Referring Physician: Ryan Chavis Performed By: Gary Tavera RCS 06/28/18 1503 Date Fredy Paniagua MD CC: Nahid López MD; Nikolas Morley DO; Ryan Chavis MD Date Dictated: 06/28/18919 Date Transcribed: 06/28/18 1503 Lug Breaker And Wire Puller: Signed 12 LEAD ELECTROCARDIOGRAM Observed: 06/28/2018 Status: F Source: [place] 1:37 PM [facility] REPOSITORY [facility] Cardiovascular Services [address] [place] [address] 12 Lead EKG 06/28/18 0020 MR#: [id number] Acct: [id number] Name: ROSALINA SMALLS Rep #: [id number] : 1940 77 From: Fredy Paniagua MD Attending Dr: Nikolas Morley DO Status: ADM IN Ordering Dr: Paxotn Acevedo MD Date: 06/28/18 Location: [facility] Sex: F C Admitted: 06/28/18 Test Reason : SOB Blood Pressure : / mmHG Vent. Rate : 087 BPM Atrial Rate : 087 BPM P-R Int : 192 ms QRS Dur : 070 ms QT Int : 386 ms P-R-T Axes : 039 -32 021 degrees QTc Int : 464 ms Normal sinus rhythm Left axis deviation Inferior infarct , age undetermined Abnormal ECG Confirmed by CHLOE BRIZUELA, FREDY ([id number]), technical editor TANGELA CAM ([id number]) on 06/28/2018 1:37:39 PM Referred By: ESTHER Confirmed By:FREDY PAN[place] MD 06/28/18 1337 Date Fredy Paniagua MD CC: Paxton Acevedo MD; Nikolas Morley DO; Ryan Chavis MD Signed BLOOD GASES BY CPS Collected: 06/28/2018 Status: F Source: [place] 10:36 AM [facility] REPOSITORY TYPE CODE TESTS RESULT OUT OF RANGE REFERENCE UNITS LAB L9000.9990 Normal BLD GAS TYPE ART LAB L9001.1000 Normal SITE L Radial LAB L9001.1010 Normal ADAM TEST POS LAB L9001.1050 O2 Normal Delivery Dev Nasal Can LAB L9001.1055 /min Normal LPM 3.0 LAB L9001.1104 Normal Results To HOSP LAB L9001.1105 Normal Time Given 1035 LAB L9001.1110 7.35-7.45 High pH - I-STAT 7.46 LAB L9001.1210 35-45 mmHg Normal pCO2 - ISTAT 42.8 LAB L9001.1310 75-100 mmHG Low PO2 I-STAT 70 LAB L9001.2300 22-26 mmol/L High HCO3 ISTAT 30.6 LAB L9001.2400 -2 to +2 mmol/L High BE ISTAT 7 LAB L9001.2415 mmol/L Normal TOTAL CO2 32 ISTAT LAB L9001.2425 95-99 % Normal SO2 ISTAT 95 Performed By: #### L9000.0800 #### [facility] Laboratory Point of Care [address] [place] [address] URINE SODIUM Collected: 06/28/2018 Status: F Source: [place] 8:30 [facility] REPOSITORY Order Comment: Diagnosis: MARY Order Date: 06/28/18 TYPE CODE TESTS RESULT OUT OF RANGE REFERENCE UNITS LAB L501.5500 Not Establ. mmol/L Normal UR NA 24 Performed By: #### L501.5500 #### [facility] [place], [address] CREATININE, URINE Collected: 06/28/2018 Status: F Source: [place] 8:30 AM [facility] REPOSITORY Order Comment: Diagnosis: MARY Order Date: 06/28/18 TYPE CODE TESTS RESULT OUT OF RANGE REFERENCE UNITS LAB L502.0300 NO RANGE EST. mg/dL Normal URINE 99.60 CREAT Performed By: #### L502.0300 #### [facility] [place], [address] UREA NITROGEN, URINE Collected: 06/28/2018 Status: F Source: [place] 8:30 AM [facility] REPOSITORY Order Comment: Diagnosis: MARY Order Date: 06/28/18 TYPE CODE TESTS RESULT OUT OF RANGE REFERENCE UNITS LAB L502.0715 NO RANGE EST. mg/dL Normal URINE 619 UREA Performed By: #### L502.0715 #### [facility] [address] [place], [address] HISTORY AND PHYSICAL Observed: 06/28/2018 Status: F Source: [place] EXAM 7:29 AM [facility] REPOSITORY [facility] Medical Records Department [address] [place] [address] History and Physical 06/28/18 06 MR#: [id number] Acct: [id number] Name: ROSALINA SMALLS Rep #: [id number] : 1940 77 From: Nahid López MD PCP: Ryan Chavis MD Status: ADM IN Y Location: [facility] QZ160-8 Problem List (1) Anemia due to blood loss Status: Inactive (2) Closed right hip fracture Status: Inactive Comment: S/P ORIF right hip on 05/25/17 (3) Fall Status: Inactive (4) Hyperparathyroidism Status: Chronic Comment: PTH is 140 on 05/25 History of Present Illness Date of Admission: 06/28/18 Chief Complaint: Low oxygen saturation 1 day The patient is a 77 year old F senior care patient with a significant history of bilateral hip replacement; dementia; bipolar; hypertension; hypothyroidism; osteoporosis; hypercholesterolemia; hyperlipidemia chronic lymphedema of legs who was brought to the emergency department because of hypoxia. Per EMS records her oxygen saturation was 81% on room air requiring non-rebreather mask. At the emergency department on room air the patient was 87% and she required oxygen by nasal cannula to maintain appropriate oxygen saturation. Reportedly patient was having wheezing at a senior care. However emergency department doctor did not auscultate any wheezing on examination. As part of the workup the patient received CTPA and because of allergy to contrast she was premedicated with steroid and Benadryl. Emergency room doctor reported that senior care staff heard decreased breath sounds and with concern about pleural effusion; and also patient had 3+ pitting edema of the right leg only. Patient is not forthcoming with history but she reports that she has been wheezing. Past Medical History Past Medical History (Chronic Problems): Chronic Problems Osteoarthritis (Chronic) Hypokalemia (Chronic) Hyperlipidemia (Chronic) Hyperparathyroidism (Chronic) PTH is 140 on 05/25 Insomnia (Chronic) Osteoporosis (Chronic) HTN (hypertension) (Chronic) Bipolar disorder (Chronic) Dyslipidemia (Chronic) Hypothyroidism (Chronic) Depression (Chronic) Allergies mold Allergy (Verified 05/23/17 20:25) Unknown Penicillins Allergy (Verified 05/23/17 20:25) Unknown IVP DYE Allergy (Uncoded 05/23/17 20:25) Hives Home Medications: Ambulatory Orders Medication Instructions Recorded Surgical History: total hip arthroplasty, - - hip replacement Psychiatric History: Bipolar, Depression, - - unspecified PUBLICATIONS INSPECTOR History: No pertinent PUBLICATIONS INSPECTOR history Lives: Prison Smoking Status: Never smoker - *Family History Maternal History Items: No pertinent history Paternal History Items: No pertinent history Review of Systems Constitutional: Denies: Chills, Fever, Weight Change HEENT: Denies: Head Aches, Sinus Congestion, Sinus Drainage Cardiovascular: Denies: Chest Pain, Palpitations Respiratory: Reports: Wheezing. Denies: Cough, Shortness of breath at rest, Sputum production Gastrointestinal: Denies: Abdominal Pain, Nausea, Vomiting Genitourinary: Denies: Dysuria Musculoskeletal: Denies: Joint Pain, Joint Tenderness Skin: Denies: Rash, Wounds Neurological: Denies: Numbness, Tingling, Focal weakness Psychiatric: Denies: Anxiety, Depression, Homicidal Ideations, Suicidal Ideations Hematologic/ Lymphatic: Denies: Easy Bruising, Easy Bleeding VTE Information - Inpt Only VTE Present on Admission: No VTE Mechan Device Prophylaxis: None VTE Pharm Prophylaxis ordered?: Yes - Physical Exam General: Alert, Oriented x3, - HEENT: Atraumatic, PERRLA, EOMI, Normocephalic Neck: Supple, No JVD, Negative Carotid Bruits Lungs: Clear to auscultation, Diminished Cardiovascular: Regular rate, No murmurs Abdomen: Bowel Sounds Present, Soft, Non Tender Extremities: No edema, Capillary Refill Less than 3 Seconds Skin: No rashes, No breakdown Musculoskeletal: No Tenderness to Palpation of Joints or Extremities Neurological: Cranial nerves II-XII grossly intact Psych/Mental Status: Normal Affect, Appropriate Vital Signs Temp Pulse Resp BP Pulse Ox 98.6 F 71 16 107/64 87 06/27/18 23:33 06/28/18 04:56 06/28/18 04:56 06/28/18 04:56 06/28/18 04:56 Assessment/Plan The patient is a 77 year old F senior care patient with a significant history of dementia; bipolar; hypertension; hypothyroidism; osteoporosis; hypercholesterolemia; hyperlipidemia chronic lymphedema with hypoxia of unclear etiology. Acute hypoxemic respiratory failure. Patient presented with oxygen saturation below 90 and requiring oxygen supplementation. The etiology of her hypoxia is not clear at this point. Her BNP was only 24.2 Oxygen saturation on 2 L while at the emergency department was about 94%. Chest x-ray showed chronic lung changes. Basilar atelectasis/scarring with no focal consolidation. Her chest CT independently reviewed showed only small bilateral pleural effusion that should not be able to cause this degree of hypoxia. Echocardiogram ordered to investigate whether the patient has some degree of pulmonary hypertension. Her last echocardiogram on file was in 2014 and at that time it was unremarkable except for some mild tricuspid valve insufficiency. Albuterol as needed for shortness of breath/wheezing. The patient received a steroid at emergency department not because she was wheezing but for pretreatment before receiving IV contrast. MARY Creatinine on admission was Baseline creatinine is Lasix held. Gentle IV hydration Urinary studies ordered: Urine creatinine, urine sodium and urine urea ordered Chronic leg edema Right leg appears bigger than left. Consistent with pitting edema. No further tests ordered at this time. Hypothyroidism Synthroid continued Bipolar Divalproex continued Olanzapine and Celexa continued Osteoporosis Alendronate held while inpatient. Continue on discharge Calcium carbonate with vitamin D continued Hyperlipidemia Statin continued DVT prophylaxis with subcutaneous heparin Code Visit Inpatient E AND M: 48801 Init Hosp L3 06/28/18 0729 <Electronically signed by Nahid López MD> Date Nahid López MD Cosigner Signature: Date (if applicable) CC: Nahid López MD; Ryan Chavis MD Signed EMERGENCY DEPARTMENT Observed: 06/28/2018 Status: F Source: [place] SUMMARY 4:38 AM [facility] REPOSITORY [facility] Medical Records Department [address] [place] [address] Emergency Department Summary 06/28/18 0434 MR#: [id number] Acct: [id number] Name: ROSALINA SMALLS Rep #: [id number] : 1940 77 From: Paxton Acevedo MD PCP: Ryan Chavis MD Status: REG ER - ER Visit Summary Date of Service: 06/28/18 Chief Complaint: Wheezing History of Present Illness: The patient is a 77 F who presents with chief complaint of wheezing. She is a very poor informant. History from the assisted living, medics, nursing triage, and history provided to me are all inconsistent. The history provided to me was that she has had wheezing for 1 month. She denies feeling short of breath. She denies cough congestion rhinorrhea. She did note some leg swelling but states this is been unchanged for a year. The assisted living facility had reported that they heard decreased breath sounds and will concern for pleural effusion and that she had 3+ pitting edema of the right leg only. EMS had reported no edema. She had reported to EMS that she is very short of breath yet denied this to me. Physical Examination: Pulse ox initially 91% on room air vitals otherwise markable Moist mucous membranes Heart regular rate and rhythm Lungs are clear I do not appreciate rales rhonchi or wheezing I do not appreciate diminished sounds Abdomen is soft and nontender Patient does have bilateral lower extremities symmetric pitting edema Alert Test Results: EKG shows sinus rhythm at a rate of 87. Labs notable for BUN 23 creatinine 1.2. Troponin normal. BNP normal. Chest x-ray was read as chronic changes and bibasilar atelectasis versus scarring. CTA of the chest shows no evidence of pulmonary embolism there are small bilateral effusions with adjacent atelectasis or infiltrate. Emergency Department Course and Treatment: Laboratory studies were unremarkable. She has no evidence of pulmonary edema on chest x-ray and her BNP was normal. Given her limited mobility edema and hypoxia this raise concern for possible pulmonary embolism so a CTA of the chest was ordered. Patient does have a history of prior hives with IV dye so she was pretreated with IV Solu-Medrol Benadryl. CTA showed small bilateral effusions with adjacent atelectasis versus infiltrate. She does not have infectious symptoms such as productive cough fever or leukocytosis but given possible infiltrate she was covered with Rocephin and azithromycin for possible community-acquired pneumonia. She was taken off of oxygen and quickly desaturated down to 87% so I do believe she will require admission. Patient to be discussed with hospitalist and admitted. Treatment Plan: [] Disposition: Admit Impression: Hypoxia Pleural effusions Possible community acquired pneumonia This note was generated with Dragon dictation software. It may contain incorrect words, spelling, and punctuation that were not noted in review of the chart prior to signing ED Disposition - Plan for ED Patient: Chief Complaint: Shortness of Breath Referrals: Ryan Chavis MD [Primary Care Provider] - What to do if you have Problems For any increased pain, shortness of breath, bleeding, nausea or vomiting, chest pain, or any unexpected problems, contact your Primary Care Provider. Call [facility] ([phone]) or report to the closest Emergency Room. Call 911 if necessary. 06/28/18 0438 <Electronically signed by Paxton Acevedo MD> Date Paxton Acevedo MD Cosigner Signature (If Indicated): Date CC: Ryan Chavis MD CTA CHEST W/WO Observed: 06/28/2018 Status: F Source: [place] CONTRAST 1:18 AM [facility] REPOSITORY [facility] Imaging Services [address] [place] [address] [place] [address] CTA Chest W/WO Contrast MR#: [id number] Acct: [id number] Name: ROSALINA SMALLS Rep #: [id number] : 1940 F 77 From: Eliseo Oliver MD PCP: Ryan Chavis MD Status: REG ER Study: CTA Chest W/WO Contrast Date of Exam: 06/28/18 Exam# [id number] Ordering Dr: Paxton Acevedo MD STUDY: CTA CHEST REASON FOR EXAM: Female, 77 years old. Shortness of breath RADIATION DOSAGE (If Supplied By Facility): CTDIvol = ( 13.37 ) mGy, DLP = ( 615.75 ) mGycm TECHNIQUE: The examination was performed with the intravenous administration of 75ML ml of Isovue 370 contrast material. Post-processing of the angiographic images was performed, with multiplanar reformation and 3D reconstruction. Individualized dose optimization techniques were used for this CT. COMPARISON: None. FINDINGS: Normal enhancement of the main pulmonary artery and right and left pulmonary arteries. Normal enhancement of the bilateral peripheral pulmonary arteries. There is no demonstrated pulmonary embolism. Described disease of the aorta and branching vessels. There is moderate narrowing of the left subclavian artery. There is severe narrowing of the origin of the celiac artery. Possible median arcuate ligament syndrome. Clinical correlation is recommended. There is no demonstrated aortic dissection. Normal heart and pericardium. Coronary artery calcifications. Nonspecific subcentimeter short axis mediastinal and hilar lymph nodes. No pneumothorax. Areas of atelectasis/scarring. Small left pleural effusion and small right pleural effusion. There is adjacent atelectasis/infiltrate. No focal consolidation. No pulmonary nodules greater than 3 mm identified. There are degenerative changes of thoracic spine. Old rib fractures. There is a large hiatal hernia. CT/CTA Chest W/WO Contrast IMPRESSION: No pulmonary embolism. Atherosclerotic disease of the aorta without aneurysm or dissection. 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 Small bilateral pleural effusions with adjacent atelectasis/infiltrates. No focal consolidation. Large hiatal hernia. Other findings as above. Electronically Signed: Eliseo Oliver, at 4:22 EDT Tel , Service support , CC: Paxton Acevedo MD; Ryan Chavis MD Lug Breaker And Wire Puller: Signed CBC W/DIFF, AUTOMATED Collected: 06/28/2018 Status: F Source: [place] 12:20 AM [facility] REPOSITORY TYPE CODE TESTS RESULT OUT OF RANGE REFERENCE UNITS LAB L100.1000 4.4-11.0 K/mm3 Normal WBC 7.7 LAB L100.1200 4.2-5.4 M/mm3 Normal RBC 4.32 LAB L100.1300 12.0-15.0 g/dl Normal HGB 12.0 LAB L100.1400 37-47 % Low HCT 36.8 LAB L100.1500 81-99 fL Normal MCV 85.2 LAB L100.1600 27.0-32.0 pg Normal MCH 27.8 LAB L100.1700 32-36 g/gl Normal MCHC 32.6 LAB L100.1810 11.6-14.6 % High RDW CV 14.9 LAB L100.1820 35.1-43.9 fl High RDW SD 45.7 LAB L100.1900 150-450 K/mm3 Normal PLT 244 LAB L100.2000 6.2-12.0 fl Normal MPV 10.2 LAB L100.2100 47-70 % Normal NEUT% 48.5 LAB L100.2200 19-41 % Normal LY% 33.5 LAB L100.2300 0-10 % High MONO% 11.0 LAB L100.2400 0-5 % High EO% 6.2 LAB L100.2500 0-1 % Normal BASO% 0.5 LAB L100.2550 0.0-0.9 % Normal IM GRAN % 0.300 Result Comment: IG% - Immature Granulocytes (promyelocytes, myelocytes and metamyelocytes) > 1% indicates that a LEFT SHIFT is Present. LAB L100.2620 2.0-7.7 X10 3/uL Normal Absolute Neut 3.7 LAB L100.2720 0.83-4.51 X10 3/ul Normal Absolute Lymph 2.58 Performed By: #### L100.0100 #### [facility] [address] [place] [address]. [place], [address] BASIC METABOLIC Collected: 06/28/2018 Status: F Source: [place] PROFILE (BMP) 12:20 AM [facility] REPOSITORY TYPE CODE TESTS RESULT OUT OF RANGE REFERENCE UNITS LAB L501.0100 74-106 mg/dL Normal GLU 94 Result Comment: Please note revised GLUCOSE reference range effective 2017. LAB L501.1000 7-18 mg/dL High BUN 23 LAB L501.1100 0.55-1.02 mg/dL High CREAT,SERUM 1.20 Result Comment: The validity of the calculated GFR AND GFRAA in patients over 70 years has not been determined. Clinical correlation is essential. LAB L501.1110 >60 mL/min Low EST GFR 46 Result Comment: Non- GFR Calc LAB L501.1115 >60 mL/min Low EST GFR - AA 56 Result Comment: GFR Calc LAB L501.1255 ml/min Normal Estimated CRCL 28.20 LAB L501.1300 10-20 RATIO Normal BUN/CRE 19.2 LAB L501.2200 8.5-10 mg/dL Low .1 CA 8.3 LAB L501.5300 136-14 mmol/L Normal 5 NA 140 LAB L501.5600 3.5-5. mmol/L Normal 1 K 4.6 Result Comment: Moderate Hemolysis, Result may be falsely increased. LAB L501.5900 98-107 mmol/L Normal CL 103 LAB L501.6100 21.0-32.0 mmol/L Normal CO2 29.0 LAB L501.6200 5-15 Normal 8 GAP Performed By: #### L500.2500, L501.4010 #### [facility] [address] [place], [place], [address] TROPONIN-I Collected: 06/28/2018 Status: F Source: [place] 12:20 AM [facility] REPOSITORY TYPE CODE TESTS RESULT OUT OF RANGE REFERENCE UNITS LAB L501.4010 <0.045 ng/mL Normal 0.020 TROPONIN-I Result Comment: TROPONIN-I EXPECTED VALUES <0.045 Negative 0.045 - 0.590 Consistent with Cardiac Damage > OR = 0.600 Critical Value Not every elevated troponin is indicative of VT. These values should be used with clinical judgement in examining the patient's clinical picture for diagnosis. To establish a diagnosis of VT versus myocardial injury, there must be a demonstrated rise and/or fall in the troponin values, in addition to ischemic symptoms, EKG changes, new regional wall motion abnormality, and/or angiographical evidence. PLEASE NOTE: REFERENCE RANGES EDITED 18 Performed By: #### L500.2500, L501.4010 #### [facility] [address] [place], [place], [address] BNP,B-TYPE NATRIURETIC Collected: 06/28/2018 Status: F Source: [place] PEPTIDE 12:20 AM [facility] REPOSITORY TYPE CODE TESTS RESULT OUT OF RANGE REFERENCE UNITS LAB L503.6620 0-100 pg/mL Normal B-TYPE 24.2 AILYN PEP Performed By: #### L503.6620 #### [facility] [address] [place], [address] CHEST 1 VIEW Observed: 06/28/2018 Status: F Source: [place] (PORTABLE) 12:13 AM [facility] REPOSITORY [facility] Imaging Services [address] [place] [address] Chest 1 View (Portable) MR#: [id number] Acct: [id number] Name: ROSALINA SMALLS Rep #: [id number] : 1940 F 77 From: Eliseo Oliver MD PCP: Ryan Chavis MD Status: REG ER Study: Chest 1 View (Portable) Date of Exam: 06/28/18 Exam# [id number] Ordering Dr: Paxton Acevedo MD STUDY: X-RAY CHEST REASON FOR EXAM: Female, 77 years old. Shortness of breath TECHNIQUE: Single frontal view of the chest. COMPARISON: May 23, 2017. FINDINGS: No pneumothorax. No pleural effusion. Bilateral basilar atelectasis/scarring. No focal consolidation. Chronic lung changes. Normal size heart. Aortic calcifications. There are diffuse degenerative changes of the visualized thoracic spine. There is degenerative osteoarthritis of the bilateral shoulders. Old rib fractures. There is no demonstrated abnormality of the visualized soft tissue structures of the upper abdomen. RAD/Chest 1 View (Portable) IMPRESSION: Chronic lung changes. Basilar atelectasis/scarring. No focal consolidation. Electronically Signed: Eliseo Oliver, at 1:16 EDT Tel , Service support , CC: Paxton Acevedo MD; Ryan Chavis MD Lug Breaker And Wire Puller: Signed Observed: 06/28/2018 Status: F Source: [place] RESPIRATORY PANEL 12:00 AM [facility] MOLECULAR REPOSITORY RP PANEL ADENOVIRUS Not Detected HUMAN METAPHNEUMO Not Detected INFLUENZA A Not Detected INFLUENZA A (SUBTYPE H1) Not Detected INFLUENZA A (SUBTYPE H3) Not Detected INFLUENZA B Not Detected PARAINFLUENZA 1 Not Detected PARAINFLUENZA 2 Not Detected PARAINFLUENZA 3 Not Detected PARAINFLUENZA 4 Not Detected RHINOVIRUS Not Detected RSV A Not Detected RSV B Not Detected NAAT METHOD Testing was performed using nucleic acid amplification Performed By: #### M100.638 #### [facility] [address] [place], [place], [id number] BASIC METABOLIC Collected: 04/05/2018 Status: F Source: [place] PROFILE (BMP) 7:40 AM [facility] REPOSITORY Order Comment: 156 TYPE CODE TESTS RESULT OUT OF RANGE REFERENCE UNITS LAB L501.0100 74-106 mg/dL Normal GLU 85 Result Comment: Please note revised GLUCOSE reference range effective 2017. LAB L501.1000 7-18 mg/dL High BUN 21 LAB L501.1100 0.55-1.02 mg/dL Normal CREAT,SERUM 0.68 Result Comment: The validity of the calculated GFR AND GFRAA in patients over 70 years has not been determined. Clinical correlation is essential. LAB L501.1110 >60 mL/min Normal EST GFR 89 Result Comment: Non- GFR Calc LAB L501.1115 >60 mL/min Normal EST GFR - AA 108 Result Comment: GFR Calc LAB L501.1300 10-20 RATIO High BUN/CRE 31.0 LAB L501.2200 8.5-10.1 mg/dL Low CA 8.2 LAB L501.5300 136-145 mmol/L NA Normal 145 LAB L501.5600 3.5-5.1 mmol/L K Normal 4.3 LAB L501.5900 98-107 mmol/L High CL 109 LAB L501.6100 21.0-32.0 mmol/L Normal CO2 30.0 LAB L501.6200 5-15 Normal GAP 6 Performed By: #### L500.2500 #### [facility] [address] [place], [place], [address] XR CHEST 2V FRONTAL/LAT Observed: 03/30/2018 Status: F Source: [place] 12:38 PM [facility] REPOSITORY * * *Final Report* * * DATE OF EXAM: Mar 30 2018 12:38PM WRX [id number] - XR CHEST 2V FRONTAL/LAT / PROCEDURE REASON: multiple diagnoses * * * * Physician Interpretation * * * * EXAMINATION: CHEST RADIOGRAPH (2 VIEW FRONTAL and LATERAL) Clinical History: Edema, unspecified Pleural effusion, not elsewhere classified MQ: XC2_5 Comparison: Chest x-ray 12/19/2017 RESULT: Lines, tubes, and devices: None. Lungs and pleura: There are a few linear densities at the LEFT lung base. No infiltrate. No pleural effusion or vascular redistribution. Eventration posterior LEFT hemidiaphragm. Cardiomediastinal silhouette: Normal cardiomediastinal silhouette. IMPRESSION: Mild linear atelectasis or fibrosis at the LEFT lung base. No evidence of congestive heart failure or pleural effusion. Lug Breaker And Wire Puller: PSCB Transcribe Date/Time: Mar 30 2018 4:54P Dictated by : NIKOLAS WILKERSON MD This examination was interpreted and the report reviewed and electronically signed by: NIKOLAS WILKERSON MD on Mar 30 2018 4:55PM EST [id number] Observed: 03/30/2018 Status: COMPLETED Source: [place] 12:17 PM [facility] REPOSITORY HNO ID: [id number] Author: Shani Carrillo (Rt) Roger Marin Service: (none) Author Type: Sanforizer Type: Progress Notes Filed: 03/30/2018 12:38 PM Note Text: Radiology Service Progress Note PATIENT NAME: Rosalina Smalls DATE OF SERVICE: March 30, 2018 TIME: 12:17 PM PATIENT IDENTITY VERIFICATION COMPLETED USING TWO (2) METHODS: Patient confirmed name verbally and Date of . PATIENT GENDER DATA: Female. status: : No status: NO. PATIENT RELEVANT IMPLANT DATA REVIEWED: Not Applicable RADIOLOGY DEPARTMENT: General X-ray: Exam(s) Completed: Chest X-Ray PERIPHERAL IV DATA: Not applicable SIGNED BY: RT Tammy March 30, 2018 12:17 PM ALBUMIN Collected: 03/30/2018 Status: F Source: [place] 11:42 AM [facility] REPOSITORY TYPE CODE TESTS RESULT OUT OF REFERENCE UNITS RANGE LAB ALB 3.9-4.9 g/dL Low Albumin 3.6 Performed By: #### ALB, BMP, NTBNP, TSH, VITD #### [facility] [address] [place], [place] [address] BASIC METABOLIC PANL Collected: 03/30/2018 Status: F Source: [place] 11:42 AM [facility] REPOSITORY TYPE CODE TESTS RESULT OUT OF REFERENCE UNITS RANGE LAB GLU 74-99 mg/dL Glucose 75 Result Comment: The [place] Diabetes Association (ADA) provides guidance for cutoff values for fasting glucose and random glucose. The ADA defines fasting as no caloric intake for at least 8 hours. Fas ting plasma glucose results between 100 to 125 mg/dL indicate increased risk for diabetes (prediabetes). Fasting plasma glucose results greater than or equal to 126 mg/dL meet the criteria for diagnosis of diabetes. In the absence of unequivocal hyperglycemia, results should be confirmed by repeat testing. In a patient with classic symptoms of hyperglycemia or hyperglycemic crisis, random plasma glucose results greater than or equal to 200 mg/dL meet the criteria for diagnosis of diabetes. Reference: Standards of Medical Care in Diabetes 2016, [place] [employer] Association. Diabetes Care. 2016.39(Suppl 1). LAB BUN 7-21 mg/dL BUN High 22 LAB CRET 0.58-0.96 mg/dL Creatinine 0.84 LAB NA 136-144 mmol/L Sodium High 145 LAB K 3.7-5.1 mmol/L Potassium 4.5 LAB CL 97-105 mmol/L Chloride 104 LAB CO2 22-30 mmol/L CO2 27 LAB AGAP 9-18 mmol/L Anion Gap 14 LAB CA 8.5-10.2 mg/dL Calcium, Total 8.9 LAB GFRAA eGFR- Amer. >60 LAB GFRNAA . eGFR-All Other Races >60 Result Comment: eGFR (Estimated GFR) Units of measure: mL/min/1.73 meters squared eGFR is derived from the reexpressed MDRD Study equation using the following parameters: serum creatinine, age, gender and race. The creatinine assay has been calibrated to be traceable to IDMS. An eGFR <60 mL/min/1.73m2 for >3 months is consistent with chronic kidney disease. Refer to KDOQI guidelines for clinical interpretation. In patients with unstable renal function, e.g. those with acute kidney injury, the eGFR may not accurately reflect actual GFR. Performed By: #### ALB, BMP, NTBNP, TSH, VITD #### [facility] [address] [address] NT PRO BNP Collected: 03/30/2018 Status: F Source: [place] 11:42 AM [facility] REPOSITORY TYPE CODE TESTS RESULT OUT OF REFERENCE UNITS RANGE LAB PBNP <450 pg/mL PRO B Natr 76 Peptide Performed By: #### ALB, BMP, NTBNP, TSH, VITD #### [place] [phone] TSH Collected: 03/30/2018 Status: F Source: [place] 11:42 [facility] REPOSITORY TYPE CODE TESTS RESULT OUT OF RANGE REFERENCE UNITS LAB TSH 0.400-5.500 uU/mL Low TSH 0.066 Performed By: #### ALB, BMP, NTBNP, TSH, VITD #### [place] [phone] VITAMIN D 25 HYDROXY Collected: 03/30/2018 Status: F Source: [place] 11:42 [facility] REPOSITORY TYPE CODE TESTS RESULT OUT OF REFERENCE UNITS RANGE LAB VITD 31.0-80.0 ng/mL Low Vitamin D 25 23.4 Hydroxy Result Comment: Classification of 25 [place] Vitamin D status: Insufficiency/Moderate Deficiency: < or = 30 ng/mL Sufficiency/Optimal Levels: 31 to 80 ng/mL Toxicity: > 100 ng/mL Test performed by chemiluminescent immunoassay. Performed By: #### ALB, BMP, NTBNP, TSH, VITD #### [facility] [place] [phone] TSH Collected: 03/30/2018 Status: F Source: [place] 11:42 [facility] REPOSITORY TYPE CODE TESTS RESULT OUT OF RANGE REFERENCE UNITS LAB TSH 0.400-5.500 uU/mL Low TSH 0.064 Performed By: #### TSH, HBA1C #### [place] [phone] HEMOGLOBIN A1C Collected: 03/30/2018 Status: F Source: [place] 11:42 AM [facility] REPOSITORY TYPE CODE TESTS RESULT OUT OF REFERENCE UNITS RANGE LAB HGBA1C 4.3-5.6 % Hemoglobin A1c 5.4 LAB HBA0 mg/dL Est. Average Glucose 108 Result Comment: eAG: (Estimated average glucose) is a calculated value from HgbA1c and is disability representative of the average blood glucose level in the last 2-3 month period. Performed By: #### TSH, HBA1C #### [facility] [address] [place], [place] [address] PROGRESS Observed: 03/30/2018 Status: COMPLETED Source: [place] 11:15 AM [facility] REPOSITORY HNO ID: [id number] Author: Ryan Chavis Service: (none) Author Type: Physician Type: Progress Notes Filed: 03/30/2018 11:24 AM Note Text: This note was created using [employer] Bugsriter. Subjective Rosalina Smalls is a 77 year old female was here for follow up. Her weight and edema was more or less stable. She was on furosemide twice daily. Venous duplex was done in december and was negative. Chest xray showed some left pleural effusion and atelectasis. She had no concerns. She did complain that she was not allowed to eat for 2 hours after her alendronate dose on Saturdays. Review of Systems Constitutional: Negative for appetite change, fatigue, fever and unexpected weight change. HENT: Negative for sore throat and trouble swallowing. Respiratory: Negative. No orthopnea. Cardiovascular: Positive for leg swelling. Negative for chest pain and palpitations. Gastrointestinal: Negative. Genitourinary: Negative. Musculoskeletal: Negative. Neurological: Positive for weakness. Objective BP 126/80 (BP Site: Left Arm, BP Position: Sitting, BP Cuff Size: Large Adult) Pulse 84 Resp 18 Wt 79.8 kg (176 lb) SpO2 95% BMI 33.81 kg/m? Physical Exam Constitutional: No distress. Eyes: Conjunctivae are normal. Neck: No JVD present. Cardiovascular: Normal rate, regular rhythm, S1 normal and S2 normal. Exam reveals no gallop. No murmur heard. Pulmonary/Chest: She has decreased breath sounds in the left lower field. She has no wheezes. She has no rhonchi. She has rales in the left lower field. Abdominal: Soft. She exhibits no distension and no fluid wave. There is no tenderness. Musculoskeletal: She exhibits edema. 3-4+ edema. Thigh high compression stockings folded below the knee per patient request. Neurological: She is alert. Wheelchair bound. Assessment and Plan 1. Edema, unspecified type - ICD9: 782.3, ICD10: R60.9 (primary diagnosis) - Continue FUROSEMIDE 40 MG BID. - ALBUMIN BLD - BASIC METABOLIC PNL - NT PRO BNP - XR CHEST 2V FRONTAL/LAT - COMPOUNDED PRESCRIPTION 2. Hypothyroidism, unspecified type - ICD9: 244.9, ICD10: E03.9 - continue current dose of Synthroid. - TSH BLD 3. Weight gain - ICD9: 783.1, ICD10: R63.5 Stable. 4. Vitamin D deficiency - ICD9: 268.9, ICD10: E55.9 Recheck. - VITAMIN D 25 HYDROXY 5. Osteoporosis, unspecified osteoporosis type, unspecified pathological fracture presence - ICD9: 733.00, ICD10: M81.0 See written order about meal after ALENDRONATE. 6. Pleural effusion on left - ICD9: 511.9, ICD10: J90 Concern for congestive heart failure was discussed. Further recommendations will depend on results. - XR CHEST 2V FRONTAL/LAT Ryan Chavis MD CNOV Observed: 03/30/2018 Status: COMPLETED Source: [place] 10:00 AM [facility] REPOSITORY Office Visit (INTMWS) SLIMROSALINATED ([id number]) 1940 F Date Time Provider Department 03/30/18 10:00 AM [facility] During your visit today, we recorded the following information about you: Pulse Respiration Blood pressure Weight 84/minute 18/minute 126/80 79.8 kg Ryan Chavis MD 03/30/2018 11:24 AM Signed This note was created using NoteWriter. Subjective Rosalina Smalls is a 77 year old female was here for follow up. Her weight and edema was more or less stable. She was on furosemide twice daily. Venous duplex was done in december and was negative. Chest xray showed some left pleural effusion and atelectasis. She had no concerns. She did complain that she was not allowed to eat for 2 hours after her alendronate dose on Saturdays. Review of Systems Constitutional: Negative for appetite change, fatigue, fever and unexpected weight change. HENT: Negative for sore throat and trouble swallowing. Respiratory: Negative. No orthopnea. Cardiovascular: Positive for leg swelling. Negative for chest pain and palpitations. Gastrointestinal: Negative. Genitourinary: Negative. Musculoskeletal: Negative. Neurological: Positive for weakness. Objective BP 126/80 (BP Site: Left Arm, BP Position: Sitting, BP Cuff Size: Large Adult) Pulse 84 Resp 18 Wt 79.8 kg (176 lb) SpO2 95% BMI 33.81 kg/m? Physical Exam Constitutional: No distress. Eyes: Conjunctivae are normal. Neck: No JVD present. Cardiovascular: Normal rate, regular rhythm, S1 normal and S2 normal. Exam reveals no gallop. No murmur heard. Pulmonary/Chest: She has decreased breath sounds in the left lower field. She has no wheezes. She has no rhonchi. She has rales in the left lower field. Abdominal: Soft. She exhibits no distension and no fluid wave. There is no tenderness. Musculoskeletal: She exhibits edema. 3-4+ edema. Thigh high compression stockings folded below the knee per patient request. Neurological: She is alert. Wheelchair bound. Assessment and Plan 1. Edema, unspecified type - ICD9: 782.3, ICD10: R60.9 (primary diagnosis) - Continue FUROSEMIDE 40 MG BID. - ALBUMIN BLD - BASIC METABOLIC PNL - NT PRO BNP - XR CHEST 2V FRONTAL/LAT - COMPOUNDED PRESCRIPTION 2. Hypothyroidism, unspecified type - ICD9: 244.9, ICD10: E03.9 - continue current dose of Synthroid. - TSH BLD 3. Weight gain - ICD9: 783.1, ICD10: R63.5 Stable. 4. Vitamin D deficiency - ICD9: 268.9, ICD10: E55.9 Recheck. - VITAMIN D 25 HYDROXY 5. Osteoporosis, unspecified osteoporosis type, unspecified pathological fracture presence - ICD9: 733.00, ICD10: M81.0 See written order about meal after ALENDRONATE. 6. Pleural effusion on left - ICD9: 511.9, ICD10: J90 Concern for congestive heart failure was discussed. Further recommendations will depend on results. - XR CHEST 2V FRONTAL/LAT Ryan Chavis MD Referring Provider: RYAN CHAVIS [[id number]] Allergies As of Date: 03/30/2018 Noted Allergy Reaction CONTRAST DYE 04/16/2007 4 - Hives MOLDS EXTRACT 10/14/2010 4 - Hives PENICILLINS 11/01/2006 Comments: mold allergy Date Reviewed: 03/30/2018 Reviewed by: Zoe Lopez LPN - Fully Assessed Reason for Visit: Recheck [92] Primary Visit Diagnosis:Edema, unspecified type [R60.9] Other Visit Diagnoses:Hypothyroidism, unspecified type [E03.9] Weight gain [R63.5] Vitamin D deficiency [E55.9] Osteoporosis, unspecified osteoporosis type, unspecified pathological fracture presence [M81.0] Pleural effusion on left [J90] Order(s):ALBUMIN BLD [SQALB] Order #: [id number] FUTURE BASIC METABOLIC PNL [SQBMP] Order #: [id number] FUTURE NT PRO BNP [SQNTBNP] Order #: [id number] FUTURE TSH BLD [SQTSH] Order #: [id number] FUTURE VITAMIN D 25 HYDROXY [SQVITD] Order #: [id number] FUTURE XR CHEST 2V FRONTAL/LAT [7334780] Order #: [id number] FUTURE Compression Knee HighsKNEE HIGH COMPRESSION STOCKINGS 20-30 MM. DX: EDEMADisp: 1 EachRfl: 2 Prescriptions as of 03/30/2018 Sig: TRAZODONE 50 MG TABLET Take 0.5 tablets by mouth rupal* DIVALPROEX 250 MG TABLET,ZOILA* Take 2 tablets by mouth daily* LEVOTHYROXINE 125 MCG TABLET Take 1 tablet by mouth once d* POTASSIUM CHLORIDE ER 20 MEQ * Take 1 tablet by mouth once d* SIMVASTATIN 20 MG TABLET Take 1 tablet by mouth daily * CHOLECALCIFEROL (VITAMIN D3) * Take 1 capsule by mouth once * FUROSEMIDE 40 MG TABLET Take 1 tablet by mouth twice * LOPERAMIDE 2 MG TABLET Take 2 mg by mouth every 2 ho* MELOXICAM 7.5 MG TABLET Take 1 tablet by mouth once d* OMEPRAZOLE 20 MG CAPSULE,ZOILA* Take 1 capsule by mouth daily* SENNOSIDES 8.6 MG TABLET Take 2 tablets by mouth twice* ALENDRONATE 70 MG TABLET TAKE 1 TABLET WEEKLY WITH A F* CITALOPRAM 10 MG TABLET Take 1 tablet by mouth once d* OLANZAPINE 5 MG TABLET Take 1 tablet by mouth daily * ACETAMINOPHEN 325 MG TABLET Take 2 tablets by mouth every* MAGNESIUM HYDROXIDE 400 MG/5 * Take 30 mL by mouth once mami* POLYETHYLENE GLYCOL 3350 17 G* Mix 1 scoop in 8 oz of water * CALCIUM CARBONATE 600 MG (1,5* Take 1 tablet by mouth twice * VIT C-VIT [id number] OX-FEMI* Take 1 capsule by mouth every* ECOTRIN LOW STRENGTH 81 MG TA* Take one(1) tablet daily. COMPOUNDED PRESCRIPTION KNEE HIGH COMPRESSION STOCKIN* Problem List As Of Date 03/30/2018 Noted Resolved HYPERLIPIDEMIA NEC/NOS [E78.5] 04/16/2007 Anxiety state [F41.1] Hypothyroidism [E03.9] Pain in joint, site unspecified [M25.50] 10/27/2011 EDEMA [R60.9] Hyperlipidemia [E78.5] INVALID FOR* Osteoporosis [M81.0] INVALID FOR* More... Unspecified vitamin D deficiency [E55.9] INVALID FOR*05/01/2012 Actinic keratosis [L57.0] INVALID FOR*11/03/2010 Inflamed seborrheic keratosis [L82.0] INVALID FOR*11/03/2010 Other seborrheic keratosis [L82.1] INVALID FOR*11/03/2010 SOLAR LENGINES///DYSCHROMIA OTHER [L81.9] INVALID FOR*11/03/2010 Other chronic dermatitis due to solar radiation*INVALID FOR*11/12/2013 Scar condition and fibrosis of skin [L90.5] INVALID FOR*11/03/2010 Open wound site NOS [T14.8XXA] INVALID FOR*11/03/2010 HISTORY OF GRAVES DISEASE [E05.00] INVALID FOR*11/03/2010 Constipation [K59.00] INVALID FOR* More... INSOMNIA NOS [G47.00] INVALID FOR* Essential hypertension [I10] INVALID FOR* Abdominal pain, other specified site [R10.9] INVALID FOR*11/03/2010 Diverticulosis of colon (without mention of hem*INVALID FOR*10/27/2011 Irritable bowel syndrome [K58.9] INVALID FOR*05/12/2016 Anemia [D64.9] INVALID FOR*11/12/2013 Severe recurrent major depressive disorder with*INVALID FOR* Irritated//Inflamed Seborrheic Keratosis [L82.0]INVALID FOR*11/18/2014 Other seborrheic keratosis [L82.1] INVALID FOR* Solar lentigo [L81.4] INVALID FOR*05/12/2016 Actinic skin damage [L57.8] INVALID FOR*05/12/2016 [place] angioma [D18.01] INVALID FOR*05/12/2016 Cutaneous skin tags [L91.8] INVALID FOR*05/12/2016 Fibrocystic breast changes [N60.19] INVALID FOR*05/12/2016 Dementia associated with other underlying disea*INVALID FOR* Bipolar affective disorder, current episode man*INVALID FOR* Unsteady gait [R26.81] INVALID FOR* S/P ORIF (open reduction internal fixation) fra*INVALID FOR* Hyperparathyroidism (HCC) [E21.3] INVALID FOR* Anemia due to blood loss [D50.0] INVALID FOR*03/30/2018 Gastroesophageal reflux disease [K21.9] INVALID FOR* Prescriptions ordered this encounter Disp Refills Start End COMPOUNDED PRESCRIPTION 1 Ea* 2 03/30/2018 Class: Print RX Sig: KNEE HIGH COMPRESSION STOCKINGS 20-30 MM. DX: EDEMA Medications Discontinued During This Encounter traZODone (DESYREL) 50 mg tablet 0 01/10/2017 03/30/2018 Class: Historical Med Route: ORAL Sig: Take 1 tablet by mouth daily at bedtime. Disc: Reason for discontinue is not on file. Disposition: Return in about 4 months (around 07/30/2018), or if symptoms worsen or fail to improve. Follow-up and Disposition History Recorded Encounter Status:Closed by RYAN CHAVIS MD on 03/30/18 ALBUMIN, SERUM Collected: 01/10/2018 Status: F Source: [place] 7:55 AM [facility] REPOSITORY Order Comment: 156 TYPE CODE TESTS RESULT OUT OF RANGE REFERENCE UNITS LAB L501.1800 3.2-5.0 g/dL Low ALB 2.5 Performed By: #### L501.1800 #### [facility] [address] [place], [place], [address] VALPROIC ACID Collected: 01/10/2018 Status: F Source: [place] (DEPAKENE) LEVEL 7:55 AM [facility] REPOSITORY Order Comment: 156 TYPE CODE TESTS RESULT OUT OF RANGE REFERENCE UNITS LAB L501.8100 50-100 ug/mL Normal VALPROIC ACID 61 Performed By: #### L501.8100 #### [facility] [address] [place], [place], [address] BASIC METABOLIC Collected: 01/04/2018 Status: F Source: [place] PROFILE (BMP) 6:37 AM [facility] REPOSITORY Order Comment: 156 TYPE CODE TESTS RESULT OUT OF RANGE REFERENCE UNITS LAB L501.0100 74-106 mg/dL Normal GLU 77 Result Comment: Please note revised GLUCOSE reference range effective 2017. LAB L501.1000 7-18 mg/dL High BUN 24 LAB L501.1100 0.55-1.02 mg/dL Normal CREAT,SERUM 0.61 Result Comment: The validity of the calculated GFR AND GFRAA in patients over 70 years has not been determined. Clinical correlation is essential. LAB L501.1110 >60 mL/min Normal EST GFR 101 Result Comment: Non- GFR Calc LAB L501.1115 >60 mL/min Normal EST GFR - AA 122 Result Comment: GFR Calc LAB L501.1300 10-20 RATIO High BUN/CRE 39.3 LAB L501.2200 8.5-10.1 mg/dL Low CA 8.2 LAB L501.5300 136-145 mmol/L NA Normal 142 LAB L501.5600 3.5-5.1 mmol/L K Normal 3.9 LAB L501.5900 98-107 mmol/L CL Normal 104 LAB L501.6100 21.0-32.0 mmol/L Normal CO2 32.0 LAB L501.6200 5-15 Normal GAP 6 Performed By: #### L500.2500 #### [facility] [address] [place], [address] BNP,B-TYPE NATRIURETIC Collected: 12/22/2017 Status: F Source: [place] PEPTIDE 10:25 AM [facility] REPOSITORY Order Comment: ROOM 156 TYPE CODE TESTS RESULT OUT OF RANGE REFERENCE UNITS LAB L503.6620 0-100 pg/mL Normal B-TYPE 13.2 AILYN PEP Performed By: #### L503.6620 #### [facility] [address] [place], [address] CNPN Observed: 12/22/2017 Status: COMPLETED Source: [place] 12:00 AM [facility] REPOSITORY Telephone (INTMWS) SLIMROSALINATED ([id number]) 1940 F Date Time Provider Department 12/22/17 RYAN CHAVIS INTWS During your visit today, we recorded the following information about you: Jorge Garcia Cma 12/22/2017 9:43 AM Signed ----- Message from Ryan Chavis sent at 12/22/2017 8:16 AM EDT ----- Left pleural effusion. Draw lab for BNP today. Increase lasix to 40 mg BID. Jorge Garcia Cma 12/22/2017 9:59 AM Signed Jenni Nurse with [facility] is notified of all information and verbalizes understanding. She will follow instructions for pt below. Jorge Chavis MD 12/23/2017 8:51 AM Signed Addended by: RYAN CHAVIS MD on: 12/23/2017 08:51 AM Modules accepted: Orders Allergies As of Date: 12/22/2017 Noted Allergy Reaction CONTRAST DYE 04/16/2007 4 - Hives MOLDS EXTRACT 10/14/2010 4 - Hives PENICILLINS 11/01/2006 Comments: mold allergy Date Reviewed: 12/19/2017 Reviewed by: Tasneem García LPN - Fully Assessed Reason for Visit: Results [95] Primary Visit Diagnosis:Edema, unspecified type [R60.9] Order(s):furosemide (LASIX) 40 mg tabletTake 1 tablet by mouth twice daily.Disp: Rfl: Prescriptions as of 12/22/2017 Sig: FUROSEMIDE 40 MG TABLET Take 1 tablet by mouth twice * LOPERAMIDE 2 MG TABLET Take 2 mg by mouth every 2 ho* MELOXICAM 7.5 MG TABLET Take 1 tablet by mouth once d* OMEPRAZOLE 20 MG CAPSULE,ZOILA* Take 1 capsule by mouth daily* POTASSIUM CHLORIDE ER 20 MEQ * Take 1 tablet by mouth once d* LEVOTHYROXINE 125 MCG TABLET Take 1 tablet by mouth once d* SENNOSIDES 8.6 MG TABLET Take 2 tablets by mouth twice* ALENDRONATE 70 MG TABLET TAKE 1 TABLET WEEKLY WITH A F* CITALOPRAM 10 MG TABLET Take 1 tablet by mouth once d* OLANZAPINE 5 MG TABLET Take 1 tablet by mouth daily * SIMVASTATIN 20 MG TABLET TAKE 1 TABLET AT BEDTIME DIVALPROEX 250 MG TABLET,ZOILA* Take 2 tablets by mouth daily* TRAZODONE 50 MG TABLET Take 1 tablet by mouth daily * ACETAMINOPHEN 325 MG TABLET Take 2 tablets by mouth every* MAGNESIUM HYDROXIDE 400 MG/5 * Take 30 mL by mouth once mami* POLYETHYLENE GLYCOL 3350 17 G* Mix 1 scoop in 8 oz of water * CALCIUM CARBONATE 600 MG (1,5* Take 1 tablet by mouth twice * VIT C-VIT A-MSHNLP-VHFV OX-FEMI* Take 1 capsule by mouth every* ECOTRIN LOW STRENGTH 81 MG TA* Take one(1) tablet daily. Problem List As Of Date 12/22/2017 Noted Resolved HYPERLIPIDEMIA NEC/NOS [E78.5] 04/16/2007 Anxiety state [F41.1] Hypothyroidism [E03.9] Pain in joint, site unspecified [M25.50] 10/27/2011 EDEMA [R60.9] Hyperlipidemia [E78.5] INVALID FOR* Osteoporosis [M81.0] INVALID FOR* More... Unspecified vitamin D deficiency [E55.9] INVALID FOR*05/01/2012 Actinic keratosis [L57.0] INVALID FOR*11/03/2010 Inflamed seborrheic keratosis [L82.0] INVALID FOR*11/03/2010 Other seborrheic keratosis [L82.1] INVALID FOR*11/03/2010 SOLAR LENGINES///DYSCHROMIA OTHER [L81.9] INVALID FOR*11/03/2010 Other chronic dermatitis due to solar radiation*INVALID FOR*11/12/2013 Scar condition and fibrosis of skin [L90.5] INVALID FOR*11/03/2010 Open wound site NOS [T14.8XXA] INVALID FOR*11/03/2010 HISTORY OF GRAVES DISEASE [E05.00] INVALID FOR*11/03/2010 Constipation [K59.00] INVALID FOR* More... INSOMNIA NOS [G47.00] INVALID FOR* Essential hypertension [I10] INVALID FOR* Abdominal pain, other specified site [R10.9] INVALID FOR*11/03/2010 Diverticulosis of colon (without mention of hem*INVALID FOR*10/27/2011 Irritable bowel syndrome [K58.9] INVALID FOR*05/12/2016 Anemia [D64.9] INVALID FOR*11/12/2013 Severe recurrent major depressive disorder with*INVALID FOR* Irritated//Inflamed Seborrheic Keratosis [L82.0]INVALID FOR*11/18/2014 Other seborrheic keratosis [L82.1] INVALID FOR* Solar lentigo [L81.4] INVALID FOR*05/12/2016 Actinic skin damage [L57.8] INVALID FOR*05/12/2016 [place] angioma [D18.01] INVALID FOR*05/12/2016 Cutaneous skin tags [L91.8] INVALID FOR*05/12/2016 Fibrocystic breast changes [N60.19] INVALID FOR*05/12/2016 Dementia associated with other underlying disea*INVALID FOR* Bipolar affective disorder, current episode man*INVALID FOR* Unsteady gait [R26.81] INVALID FOR* S/P ORIF (open reduction internal fixation) fra*INVALID FOR* Hyperparathyroidism (HCC) [E21.3] INVALID FOR* Anemia due to blood loss [D50.0] INVALID FOR* Gastroesophageal reflux disease [K21.9] INVALID FOR* Prescriptions ordered this encounter Disp Refills Start End FUROSEMIDE 40 MG TABLET 12/23/2017 Class: Med Update Route: ORAL Sig: Take 1 tablet by mouth twice daily. Medications Discontinued During This Encounter furosemide 40 mg tablet 90 t* 0 02/06/2013 12/23/2017 Route: ORAL Sig: Take 1 tablet by mouth once daily for 90 days. Disc: Reason for discontinue is not on file. furosemide (LASIX) 40 mg tablet 30 t* 11 02/07/2017 12/23/2017 Cmt: Prescription Sig: TAKE 1 TABLET DAILY Disc: Reason for discontinue is not on file. Encounter Status:Closed by JORGE GARCIA CMA on 12/22/17 CBC-COMPLETE BLOOD CNT Collected: 12/21/2017 Status: F Source: [place] NO DIFF 5:30 AM [facility] REPOSITORY Order Comment: 156 TYPE CODE TESTS RESULT OUT OF RANGE REFERENCE UNITS LAB L100.1000 4.4-11.0 K/mm3 Normal WBC 4.9 LAB L100.1200 4.2-5.4 M/mm3 Low RBC 3.84 LAB L100.1300 12.0-15.0 g/dl Low HGB 10.7 LAB L100.1400 37-47 % Low HCT 34.4 LAB L100.1500 81-99 fL Normal MCV 89.6 LAB L100.1600 27.0-32.0 pg Normal MCH 27.9 LAB L100.1700 32-36 g/gl Low MCHC 31.1 LAB L100.1810 11.6-14.6 % High RDW CV 15.1 LAB L100.1820 35.1-43.9 fl High RDW SD 49.6 LAB L100.1900 150-450 K/mm3 Normal PLT 236 LAB L100.2000 6.2-12.0 fl Normal MPV 11.5 Performed By: #### L100.0500 #### [facility] [address] [place], [address] COMPREHENSIVE METABOLIC Collected: 12/21/2017 Status: F Source: [place] PROFIL 5:30 AM [facility] REPOSITORY Order Comment: 156 TYPE CODE TESTS RESULT OUT OF RANGE REFERENCE UNITS LAB L501.0100 74-106 mg/dL Low GLU 67 Result Comment: Please note revised GLUCOSE reference range effective 2017. LAB L501.1000 7-18 mg/dL Normal BUN 17 LAB L501.1100 0.55-1.02 mg/dL Low CREAT,SERUM 0.52 Result Comment: The validity of the calculated GFR AND GFRAA in patients over 70 years has not been determined. Clinical correlation is essential. LAB L501.1110 >60 mL/min Normal EST GFR 122 Result Comment: Non- GFR Calc LAB L501.1115 >60 mL/min Normal EST GFR - AA 147 Result Comment: GFR Calc LAB L501.1300 10-20 RATIO High BUN/CRE 32.8 LAB L501.1500 6.4-8.2 g/dL Low T PROT 5.6 LAB L501.1800 3.2-5.0 g/dL Low ALB 2.3 LAB L501.1950 2.2-4.2 g/dL Normal GLOB 3.3 LAB L501.2000 0.9-2.4 RATIO Low A/G 0.7 LAB L501.2200 8.5-10.1 mg/dL Low CA 7.6 LAB L501.4100 15-37 U/L Low AST 12 LAB L501.4305 45-117 U/L Normal ALK P 57 LAB L501.4405 13-56 U/L Low ALT 10 Result Comment: Please note revised ALT reference range effective 2017. LAB L501.4600 0.20-1.00 mg/dL Normal T BILI 0.20 LAB L501.5300 136-145 mmol/L Normal NA 143 LAB L501.5600 3.5-5.1 mmol/L Normal K 4.2 LAB L501.5900 98-107 mmol/L Normal CL 107 LAB L501.6100 21.0-32.0 mmol/L Normal CO2 28.0 LAB L501.6200 5-15 Normal GAP 8 Performed By: #### L500.4050, L500.4100, L501.9520 #### [facility] [address] [place], [place], [id number] LIPID PROFILE Collected: 12/21/2017 Status: F Source: [place] 5:30 AM [facility] REPOSITORY Order Comment: 156 TYPE CODE TESTS RESULT OUT OF RANGE REFERENCE UNITS LAB L501.4900 200 mg/dL Normal CHOL 113 Result Comment: <200 mg/dL Desirable 200-240 mg/dL Borderline >240 mg/dL High Risk LAB L501.5000 mg/dL Normal TRIG 71 Result Comment: The drugs N-Acetylcysteine and Metamizole may falsely depress this assay. Serum Triglycerides Reference Interval Normal <150 mg/dL Borderline high 150 - 199 mg/dL High 200 - 499 mg/dL Very High > or = 500 mg/dL LAB L501.6400 mg/dL Normal HDL 45 Result Comment: The drugs N-Acetylcysteine and Metamizole may falsely depress this assay. Reference Range HDL <40 mg/dL Low HDL Cholesterol HDL >or= 60 mg/dL High HDL Cholesterol LAB L501.6500 0-130 mg/dL Normal LDL 54 LAB L501.6600 5-40 mg/dL Normal VLDL 14 Performed By: #### L500.4050, L500.4100, L501.9520 #### [facility] [address] [place], [address] THYROID STIM HORMONE Collected: 12/21/2017 Status: F Source: [place] ([place]) 5:30 AM [facility] REPOSITORY Order Comment: 156 TYPE CODE TESTS RESULT OUT OF RANGE REFERENCE UNITS LAB L501.9520 0.358-3.74 uIU/mL Normal TSH 2.47 Performed By: #### L500.4050, L500.4100, L501.9520 #### [facility] [address] [place], [address] XR CHEST 2V FRONTAL/LAT Observed: 12/19/2017 Status: F Source: [place] 3:59 PM [facility] REPOSITORY * * *Final Report* * * DATE OF EXAM: Dec 19 2017 3:59PM WOX [id number] - XR CHEST 2V FRONTAL/LAT / PROCEDURE REASON: multiple diagnoses * * * * Physician Interpretation * * * * EXAMINATION: CHEST RADIOGRAPH (2 VIEW FRONTAL and LATERAL) Clinical History: Edema, unspecified Abnormal weight gain MQ: XC2_4 Comparison: None RESULT: Lines, tubes, and devices: None. Lungs and pleura: There is left basilar opacification suspicious for pleural effusion, underlying processes not excluded. Retrocardiac hiatal hernia. Right lung is clear of infiltrate. Mild right basilar atelectasis/scarring noted. No pneumothorax. Cardiomediastinal silhouette: Normal cardiomediastinal silhouette. Mild atherosclerotic changes of the thoracic aorta. Other: IMPRESSION: Left pleural effusion, superimposed atelectasis/pneumonic infiltrate not excluded. Hiatal hernia Lug Breaker And Wire Puller: LONA Transcribe Date/Time: Dec 19 2017 5:08P Dictated by : DERRELL HAHN MD This examination was interpreted and the report reviewed and electronically signed by: DERRELL HAHN MD on Dec 19 2017 5:09PM EST [id number] CBC AND DIFFERENTIAL Collected: 12/19/2017 Status: F Source: [place] 3:39 PM [facility] REPOSITORY TYPE CODE TESTS RESULT OUT OF REFERENCE UNITS RANGE LAB WBC 3.70-11.00 k/uL WBC 5.89 LAB RBC 3.90-5.20 m/uL RBC 4.64 LAB HGB 11.5-15.5 g/dL Hemoglobin 12.7 LAB HCT 36.0-46.0 % Hematocrit 41.9 LAB MCV 80.0-100.0 fL MCV 90.3 LAB MCH 26.0-34.0 pG MCH 27.4 LAB MCHC 30.5-36.0 g/dL Low MCHC 30.3 LAB RDWCV 11.5-15.0 % RDW-CV High 15.3 LAB PLTCT 150-400 k/uL Platelet Count 263 LAB MPV 9.0-12.7 fL MPV 12.0 LAB ANEUT % Neut% 50.6 LAB AANEUT 1.45-7.50 k/uL Abs Neut 2.96 LAB ALYMP % Lymph% 29.0 LAB AALYMP 1.00-4.00 k/uL Abs Lymph 1.71 LAB AMONO % [place]% 10.9 LAB AAMONO <0.87 k/uL Abs [place] 0.64 LAB AEOS % Eosin% 8.8 LAB AAEOS <0.46 k/uL Abs High Eosin 0.52 LAB ABASO % Baso% 0.7 LAB AABASO <0.11 k/uL Abs Baso 0.04 LAB AUNRBC 0 /100 WBC NRBCs 0.0 LAB ABNRBC <0.01 k/uL Absolute nRBC <0.01 LAB DTYP DTYPE Auto Diff Performed By: #### CBCDIF, CMP, PTHI, VITD #### [facility] [address] [place], [place] [address] COMP METABOLIC PANEL Collected: 12/19/2017 Status: F Source: [place] 3:39 PM [facility] REPOSITORY TYPE CODE TESTS RESULT OUT OF REFERENCE UNITS RANGE LAB TP 6.3-8.0 g/dL Protein, Total 7.0 LAB ALB 3.9-4.9 g/dL Low Albumin 3.5 LAB CA 8.5-10.2 mg/dL Calcium, Total 8.9 LAB TBIL 0.2-1.3 mg/dL Low Bilirubin, Total <0.2 LAB ALKP 32-117 U/L Alkaline Phosphatase 65 LAB AST 13-35 U/L AST 20 LAB GLU 74-99 mg/dL Glucose 89 Result Comment: The [place] [employer] (ADA) provides guidance for cutoff values for fasting glucose and random glucose. The ADA defines fasting as no caloric intake for at least 8 hours. Fas ting plasma glucose results between 100 to 125 mg/dL indicate increased risk for diabetes (prediabetes). Fasting plasma glucose results greater than or equal to 126 mg/dL meet the criteria for diagnosis of diabetes. In the absence of unequivocal hyperglycemia, results should be confirmed by repeat testing. In a patient with classic symptoms of hyperglycemia or hyperglycemic crisis, random plasma glucose results greater than or equal to 200 mg/dL meet the criteria for diagnosis of diabetes. Reference: Standards of Medical Care in Diabetes 2016, [place] [employer]. Diabetes Care. 2016.39(Suppl 1). LAB BUN 7-21 mg/dL BUN High 22 LAB CRET 0.58-0.96 mg/dL Creatinine 0.84 LAB NA 136-144 mmol/L Sodium 141 LAB K 3.7-5.1 mmol/L Potassium 4.5 LAB CL 97-105 mmol/L Chloride 101 LAB CO2 22-30 mmol/L CO2 27 LAB AGAP 9-18 mmol/L Anion Gap 13 LAB ALT 7-38 U/L ALT 9 LAB GFRAA eGFR- Amer. >60 LAB GFRNAA . eGFR-All Other Races >60 Result Comment: eGFR (Estimated GFR) Units of measure: mL/min/1.73 meters squared eGFR is derived from the reexpressed MDRD Study equation using the following parameters: serum creatinine, age, gender and race. The creatinine assay has been calibrated to be traceable to IDMS. An eGFR <60 mL/min/1.73m2 for >3 months is consistent with chronic kidney disease. Refer to KDOQI guidelines for clinical interpretation. In patients with unstable renal function, e.g. those with acute kidney injury, the eGFR may not accurately reflect actual GFR. Performed By: #### CBCDIF, CMP, PTHI, VITD #### [facility] [address] [place], [place] [address] PTH, INTACT Collected: 12/19/2017 Status: F Source: [place] 3:39 [facility] REPOSITORY TYPE CODE TESTS RESULT OUT OF REFERENCE UNITS RANGE LAB PTH 15-65 pg/mL PTH, Intact 44 Performed By: #### CBCDIF, CMP, PTHI, VITD #### [facility] [address] [place], [place] [address] VITAMIN D 25 HYDROXY Collected: 12/19/2017 Status: F Source: [place] 3:39 [facility] REPOSITORY TYPE CODE TESTS RESULT OUT OF REFERENCE UNITS RANGE LAB VITD 31.0-80.0 ng/mL Low Vitamin D 25 18.5 Hydroxy Result Comment: Classification of 25 [place] Vitamin D status: Insufficiency/Moderate Deficiency: < or = 30 ng/mL Sufficiency/Optimal Levels: 31 to 80 ng/mL Toxicity: > 100 ng/mL Test performed by chemiluminescent immunoassay. Performed By: #### CBCDIF, CMP, PTHI, VITD #### [facility] [address] [employer] [employer] [place], [place] [address] LIPID PANEL, BASIC Collected: 12/19/2017 Status: F Source: [place] 3:38 [facility] REPOSITORY TYPE CODE TESTS RESULT OUT OF REFERENCE UNITS RANGE LAB CHOL <200 mg/dL Cholesterol 153 Result Comment: <200 mg/dL, Desirable 200-239 mg/dL, Borderline high >239 mg/dL, High LAB TRIGLY <150 mg/dL Triglyceride 126 Result Comment: <150 mg/dL, Normal 150-199 mg/dL, Borderline high 200-499 mg/dL, High >499 mg/dL, Very high LAB HDL >39 mg/dL HDL-Cholesterol 54 Result Comment: 40-59 mg/dL, Acceptable >59 mg/dL, High: Negative risk factor for coronary heart disease <40 mg/dL, Low: Positive risk factor for coronary heart disease LAB LDL <100 mg/dL LDL-Cholesterol 74 Result Comment: <100 mg/dL, Optimal 100-129 mg/dL, Near optimal/above optimal 130-159 mg/dL, Borderline high 160-189 mg/dL, High >189 mg/dL, Very high Secondary prevention optimal LDL Cholesterol levels are recommended to be < 70 mg/dL LAB NONHDL <130 mg/dL Non HDL Cholesterol 99 Result Comment: <130 mg/dL, Optimal 130-159 mg/dL, Near optimal/above optimal 160-189 mg/dL, Borderline high 190-219 mg/dL, High >219 mg/dL, Very high Secondary prevention optimal non HDL Cholesterol levels are recommended to be < 100 mg/dL LAB FT hrs Fasting Time 12 LAB VLDL <30 mg/dL VLDL Cholesterol 25 LAB TCHDL <5.10 TC:HDL Ratio 2.83 LAB LDLHDL <2.54 LDL:HDL Ratio 1.37 Result Comment: Reference: 1. National Cholesterol Education Program ATP III Guideline At-A-Glance Quick Desk Reference: National Heart, Lung, and Blood [place]. National Institutes of Health. 2001: NIH Publication No. 01-3305. 2. An International Atherosclerosis Society position paper: global recommendations for the management of dyslipidemia: executive summary, Atherosclerosis. 2014: 232(2):410-413. Performed By: #### LIPB, HBA1C #### [facility] [address], [place] [address] HEMOGLOBIN A1C Collected: 12/19/2017 Status: F Source: [place] 3:38 PM [facility] REPOSITORY TYPE CODE TESTS RESULT OUT OF REFERENCE UNITS RANGE LAB HGBA1C 4.3-5.6 % Hemoglobin A1c 5.2 LAB HBA0 mg/dL Est. Average Glucose 103 Result Comment: eAG: (Estimated average glucose) is a calculated value from HgbA1c and is disability representative of the average blood glucose level in the last 2-3 month period. Performed By: #### LIPB, HBA1C #### [facility] [address], [place] [address] PROGRESS Observed: 12/19/2017 Status: COMPLETED Source: [place] 3:30 PM [facility] REPOSITORY HNO ID: [id number] Author: Shama Mar (Rt) Roger Deutsch Service: (none) Author Type: Sanforizer Type: Progress Notes Filed: 12/19/2017 3:58 PM Note Text: Radiology Service Progress Note PATIENT NAME: Rosalina Smalls DATE OF SERVICE: December 19, 2017 TIME: 3:30 PM PATIENT IDENTITY VERIFICATION COMPLETED USING TWO (2) METHODS: Patient confirmed name verbally and Date of . PATIENT GENDER DATA: Female. status: : No status: NO. PATIENT RELEVANT IMPLANT DATA REVIEWED: Not Applicable RADIOLOGY DEPARTMENT: General X-ray: Exam(s) Completed: Chest X-Ray PERIPHERAL IV DATA: Not applicable SIGNED BY: RT Hilaria December 19, 2017 3:30 PM PROGRESS Observed: 12/19/2017 Status: COMPLETED Source: [place] 3:17 PM [facility] REPOSITORY HNO ID: [id number] Author: Ryan Chavis Service: (none) Author Type: Physician Type: Progress Notes Filed: 12/19/2017 3:27 PM Note Text: This note was created using Cherry Bugsriter. Subjective Rosalina Smalls is a 77 year old female here for follow up. She fell last May and was admitted for right hip fracture, repaired. Since then she has been unable to walk or bear weight without assistance. She had been wheelchair bound, and transferred with 2 assist, and arlene lift. Edema had been increasing. She complained of intermittent heartburn, acid reflux, maybe 2 times a week. She denied dysphagia. Her medication list was updated. 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 potassium chloride ER (K-DUR, KLOR-CON) 20 mEq tablet Take 1 tablet by mouth once daily. levothyroxine (SYNTHROID) 125 mcg tablet Take 1 tablet by mouth once daily. Take on empty stomach. For Thyroid senna (SENNA) 8.6 mg tab Take 2 tablets by mouth twice daily as needed. alendronate (FOSAMAX) 70 mg tablet TAKE 1 TABLET WEEKLY WITH A FULL GLASS OF WATER ON AN EMPTY STOMACH *DO NOT LIE DOWN FOR 30 MIN* citalopram hydrobromide (CELEXA) 10 mg tablet Take 1 tablet by mouth once daily. OLANZapine (ZYPREXA) 5 mg tablet Take 1 tablet by mouth daily at bedtime. furosemide (LASIX) 40 mg tablet TAKE 1 TABLET DAILY simvastatin (ZOCOR) 20 mg tablet TAKE 1 TABLET AT BEDTIME divalproex DR (DEPAKOTE) 250 mg EC tablet Take 2 tablets by mouth daily at bedtime. traZODone (DESYREL) 50 mg tablet Take 1 tablet by mouth daily at bedtime. acetaminophen (TYLENOL) 325 mg tablet Take 2 tablets by mouth every 4 hours as needed for Pain. magnesium hydroxide (MOM) 400 mg/5 mL suspension Take 30 mL by mouth once daily as needed. polyethylene glycol 3350 (MIRALAX) 17 gram/dose powder Mix 1 scoop in 8 oz of water and drink every other day for constipation calcium carbonate 600 mg-cholecalciferol 200 units (CALCIUM 600 + D,3,) 600 mg(1,500mg) -200 unit tab Take 1 tablet by mouth twice daily. Vit C-Vit V-Redola-OlYq-Lutein (PRESERVISION LUTEIN) 226 mg- 200 unit -5 mg-0.8 mg cap Take 1 capsule by mouth every evening. aspirin(ECOTRIN LOW STRENGTH 81 MG TAB) Take one(1) tablet daily. meloxicam (MOBIC) 7.5 mg tablet Take 1 tablet by mouth once daily as needed for Pain. With food. omeprazole (PRILOSEC) 20 mg capsule Take 1 capsule by mouth daily before breakfast. 1/2 hr before meal. No current facility-administered medications for this visit. Review of Systems Constitutional: Positive for unexpected weight change. Negative for activity change, appetite change and fever. HENT: Negative. Eyes: Negative. Respiratory: Negative. Cardiovascular: Positive for leg swelling. Negative for chest pain and palpitations. Gastrointestinal: Positive for constipation and diarrhea. Negative for blood in stool, nausea and vomiting. See HPI. Genitourinary: Negative. Musculoskeletal: Positive for gait problem. Neurological: Positive for weakness. Objective BP 118/70 (BP Site: Left Arm, BP Position: Sitting, BP Cuff Size: Regular Adult) Pulse 84 Temp 36.5 ?C (97.7 ?F) (Left Tympanic) Resp 20 Wt 80.3 kg (177 lb) BMI 34 kg/m2 Physical Exam Constitutional: No distress. HENT: Head: Normocephalic. Eyes: Conjunctivae are normal. Pupils are equal, round, and reactive to light. Neck: No JVD present. Cardiovascular: Normal heart sounds. Pulmonary/Chest: No respiratory distress. She has rales. Abdominal: Soft. She exhibits distension. She exhibits no mass. There is no tenderness. Musculoskeletal: She exhibits edema. She exhibits no tenderness. 3-4+ edema, right more than left. Neurological: She is alert. Wheelchair bound. Skin: No cyanosis. Nails show no clubbing. ASSESSMENT/PLAN: 1. Edema, unspecified type - ICD9: 782.3, ICD10: R60.9 (primary diagnosis) - XR CHEST 2V FRONTAL/LAT - CBC + DIFF - COMP METABOLIC PANEL - US LEG VEIN DVT [facility] 2. Weight gain - ICD9: 783.1, ICD10: R63.5 See #1. - XR CHEST 2V FRONTAL/LAT 3. Hypothyroidism, unspecified type - ICD9: 244.9, ICD10: E03.9 - continue current dose of Synthroid. Check TSH. 4. Essential hypertension - ICD9: 401.9, ICD10: I10 - good control 5. 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 6. Bipolar affective disorder, current episode manic with psychotic symptoms (HCC) - ICD9: 296.44, ICD10: F31.2 Stable. 7. Dementia associated with other underlying disease with behavioral disturbance - ICD9: 294.8, 294.11, ICD10: F02.81 Stable. 8. Anemia due to blood loss - ICD9: 280.0, ICD10: D50.0 Recheck. 9. Hyperparathyroidism (HCC) - ICD9: 252.00, ICD10: E21.3 Recheck. - PTH INTACT BLD - VITAMIN D 25 HYDROXY 10. Gastroesophageal reflux disease, esophagitis presence not specified - ICD9: 530.81, ICD10: K21.9 Options discussed. Try daily medication for now instead of prn. - OMEPRAZOLE 20 MG CAPSULE,DELAYED RELEASE Ryan Chavis MD CNOV Observed: 12/19/2017 Status: COMPLETED Source: [place] 2:20 PM [facility] REPOSITORY Office Visit (INTMWS) ROSALINA SMALLS ([id number]) 1940 F Date Time Provider Department 12/19/17 2:20 PM RYAN CHAVIS INTMWS During your visit today, we recorded the following information about you: Temperature Pulse Respiration Blood pressure 97.7 degrees 84/minute 20/minute 118/70 Weight 80.3 kg Ryan Chavis MD 12/19/2017 3:27 PM Signed This note was created using Cherry B[employer]. Subjective Rosalina Smalls is a 77 year old female here for follow up. She fell last May and was admitted for right hip fracture, repaired. Since then she has been unable to walk or bear weight without assistance. She had been wheelchair bound, and transferred with 2 assist, and arlene lift. Edema had been increasing. She complained of intermittent heartburn, acid reflux, maybe 2 times a week. She denied dysphagia. Her medication list was updated. 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 potassium chloride ER (K-DUR, KLOR-CON) 20 mEq tablet Take 1 tablet by mouth once daily. levothyroxine (SYNTHROID) 125 mcg tablet Take 1 tablet by mouth once daily. Take on empty stomach. For Thyroid senna (SENNA) 8.6 mg tab Take 2 tablets by mouth twice daily as needed. alendronate (FOSAMAX) 70 mg tablet TAKE 1 TABLET WEEKLY WITH A FULL GLASS OF WATER ON AN EMPTY STOMACH *DO NOT LIE DOWN FOR 30 MIN* citalopram hydrobromide (CELEXA) 10 mg tablet Take 1 tablet by mouth once daily. OLANZapine (ZYPREXA) 5 mg tablet Take 1 tablet by mouth daily at bedtime. furosemide (LASIX) 40 mg tablet TAKE 1 TABLET DAILY simvastatin (ZOCOR) 20 mg tablet TAKE 1 TABLET AT BEDTIME divalproex DR (DEPAKOTE) 250 mg EC tablet Take 2 tablets by mouth daily at bedtime. traZODone (DESYREL) 50 mg tablet Take 1 tablet by mouth daily at bedtime. acetaminophen (TYLENOL) 325 mg tablet Take 2 tablets by mouth every 4 hours as needed for Pain. magnesium hydroxide (MOM) 400 mg/5 mL suspension Take 30 mL by mouth once daily as needed. polyethylene glycol 3350 (MIRALAX) 17 gram/dose powder Mix 1 scoop in 8 oz of water and drink every other day for constipation calcium carbonate 600 mg-cholecalciferol 200 units (CALCIUM 600 + D,3,) 600 mg(1,500mg) -200 unit tab Take 1 tablet by mouth twice daily. Vit C-Vit G-Fkzmcv-VbGs-Lutein (PRESERVISION LUTEIN) 226 mg- 200 unit -5 mg-0.8 mg cap Take 1 capsule by mouth every evening. aspirin(ECOTRIN LOW STRENGTH 81 MG TAB) Take one(1) tablet daily. meloxicam (MOBIC) 7.5 mg tablet Take 1 tablet by mouth once daily as needed for Pain. With food. omeprazole (PRILOSEC) 20 mg capsule Take 1 capsule by mouth daily before breakfast. 1/2 hr before meal. No current facility-administered medications for this visit. Review of Systems Constitutional: Positive for unexpected weight change. Negative for activity change, appetite change and fever. HENT: Negative. Eyes: Negative. Respiratory: Negative. Cardiovascular: Positive for leg swelling. Negative for chest pain and palpitations. Gastrointestinal: Positive for constipation and diarrhea. Negative for blood in stool, nausea and vomiting. See HPI. Genitourinary: Negative. Musculoskeletal: Positive for gait problem. Neurological: Positive for weakness. Objective BP 118/70 (BP Site: Left Arm, BP Position: Sitting, BP Cuff Size: Regular Adult) Pulse 84 Temp 36.5 ?C (97.7 ?F) (Left Tympanic) Resp 20 Wt 80.3 kg (177 lb) BMI 34 kg/m2 Physical Exam Constitutional: No distress. HENT: Head: Normocephalic. Eyes: Conjunctivae are normal. Pupils are equal, round, and reactive to light. Neck: No JVD present. Cardiovascular: Normal heart sounds. Pulmonary/Chest: No respiratory distress. She has rales. Abdominal: Soft. She exhibits distension. She exhibits no mass. There is no tenderness. Musculoskeletal: She exhibits edema. She exhibits no tenderness. 3-4+ edema, right more than left. Neurological: She is alert. Wheelchair bound. Skin: No cyanosis. Nails show no clubbing. ASSESSMENT/PLAN: 1. Edema, unspecified type - ICD9: 782.3, ICD10: R60.9 (primary diagnosis) - XR CHEST 2V FRONTAL/LAT - CBC + DIFF - COMP METABOLIC PANEL - US LEG VEIN DVT [facility] 2. Weight gain - ICD9: 783.1, ICD10: R63.5 See #1. - XR CHEST 2V FRONTAL/LAT 3. Hypothyroidism, unspecified type - ICD9: 244.9, ICD10: E03.9 - continue current dose of Synthroid. Check TSH. 4. Essential hypertension - ICD9: 401.9, ICD10: I10 - good control 5. 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 6. Bipolar affective disorder, current episode manic with psychotic symptoms (HCC) - ICD9: 296.44, ICD10: F31.2 Stable. 7. Dementia associated with other underlying disease with behavioral disturbance - ICD9: 294.8, 294.11, ICD10: F02.81 Stable. 8. Anemia due to blood loss - ICD9: 280.0, ICD10: D50.0 Recheck. 9. Hyperparathyroidism (HCC) - ICD9: 252.00, ICD10: E21.3 Recheck. - PTH INTACT BLD - VITAMIN D 25 HYDROXY 10. Gastroesophageal reflux disease, esophagitis presence not specified - ICD9: 530.81, ICD10: K21.9 Options discussed. Try daily medication for now instead of prn. 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 With food.Disp: Rfl: XR CHEST 2V FRONTAL/LAT [4511274] Order #: [id number] FUTURE CBC + DIFF [SQCBCDIF] Order #: [id number] FUTURE COMP METABOLIC PANEL [SQCMP] Order #: [id number] FUTURE PTH INTACT BLD [SQPTHI] Order #: [id number] FUTURE VITAMIN D 25 HYDROXY [SQVITD] Order #: [id number] FUTURE US LEG VEIN DVT [facility] [1791689] Order #: [id number] FUTURE omeprazole (PRILOSEC) 20 mg capsuleTake 1 capsule by mouth daily before breakfast. 1/2 hr before meal.Disp: 30 capsuleRfl: 5 Prescriptions as of 12/19/2017 Sig: LOPERAMIDE 2 MG TABLET Take 2 mg by mouth every 2 ho* POTASSIUM CHLORIDE ER 20 MEQ * Take 1 tablet by mouth once d* LEVOTHYROXINE 125 MCG TABLET Take 1 tablet by mouth once d* SENNOSIDES 8.6 MG TABLET Take 2 tablets by mouth twice* ALENDRONATE 70 MG TABLET TAKE 1 TABLET WEEKLY WITH A F* CITALOPRAM 10 MG TABLET Take 1 tablet by mouth once d* OLANZAPINE 5 MG TABLET Take 1 tablet by mouth daily * FUROSEMIDE 40 MG TABLET TAKE 1 TABLET DAILY SIMVASTATIN 20 MG TABLET TAKE 1 TABLET AT BEDTIME DIVALPROEX 250 MG TABLET,ZOILA* Take 2 tablets by mouth daily* TRAZODONE 50 MG TABLET Take 1 tablet by mouth daily * ACETAMINOPHEN 325 MG TABLET Take 2 tablets by mouth every* MAGNESIUM HYDROXIDE 400 MG/5 * Take 30 mL by mouth once mami* POLYETHYLENE GLYCOL 3350 17 G* Mix 1 scoop in 8 oz of water * CALCIUM CARBONATE 600 MG (1,5* Take 1 tablet by mouth twice * VIT C-VIT X-[id number]-[id number] OX-FEMI* Take 1 capsule by mouth every* ECOTRIN LOW STRENGTH 81 MG TA* Take one(1) tablet daily. MELOXICAM 7.5 MG TABLET Take 1 tablet by mouth once d* OMEPRAZOLE 20 MG CAPSULE,ZOILA* Take 1 capsule by mouth daily* Medication notes this encounter MELOXICAM 15 MG TABLET >> Tasneem García LPN 12/19/2017 2:39 PM >> TASNEEM GARCÍA LPN juan Dec 19, 2017 2:39 PM [facility] dispensing directions: Give 7.5mg daily as needed dx: Pain BENZTROPINE 0.5 MG TABLET >> Tasneem García LPN 12/19/2017 2:23 PM >> TASNEEM GARCÍA LPN juan Dec 19, 2017 2:23 PM Not on [facility] med list Problem List As Of Date 12/19/2017 Noted Resolved HYPERLIPIDEMIA NEC/NOS [E78.5] 04/16/2007 Anxiety state [F41.1] Hypothyroidism [E03.9] Pain in joint, site unspecified [M25.50] 10/27/2011 EDEMA [R60.9] Hyperlipidemia [E78.5] INVALID FOR* Osteoporosis [M81.0] INVALID FOR* More... Unspecified vitamin D deficiency [E55.9] INVALID FOR*05/01/2012 Actinic keratosis [L57.0] INVALID FOR*11/03/2010 Inflamed seborrheic keratosis [L82.0] INVALID FOR*11/03/2010 Other seborrheic keratosis [L82.1] INVALID FOR*11/03/2010 SOLAR LENGINES///DYSCHROMIA OTHER [L81.9] INVALID FOR*11/03/2010 Other chronic dermatitis due to solar radiation*INVALID FOR*11/12/2013 Scar condition and fibrosis of skin [L90.5] INVALID FOR*11/03/2010 Open wound site NOS [T14.8XXA] INVALID FOR*11/03/2010 HISTORY OF GRAVES DISEASE [E05.00] INVALID FOR*11/03/2010 Constipation [K59.00] INVALID FOR* More... INSOMNIA NOS [G47.00] INVALID FOR* Essential hypertension [I10] INVALID FOR* Abdominal pain, other specified site [R10.9] INVALID FOR*11/03/2010 Diverticulosis of colon (without mention of hem*INVALID FOR*10/27/2011 Irritable bowel syndrome [K58.9] INVALID FOR*05/12/2016 Anemia [D64.9] INVALID FOR*11/12/2013 Severe recurrent major depressive disorder with*INVALID FOR* Irritated//Inflamed Seborrheic Keratosis [L82.0]INVALID FOR*11/18/2014 Other seborrheic keratosis [L82.1] INVALID FOR* Solar lentigo [L81.4] INVALID FOR*05/12/2016 Actinic skin damage [L57.8] INVALID FOR*05/12/2016 [place] angioma [D18.01] INVALID FOR*05/12/2016 Cutaneous skin tags [L91.8] INVALID FOR*05/12/2016 Fibrocystic breast changes [N60.19] INVALID FOR*05/12/2016 Dementia associated with other underlying disea*INVALID FOR* Bipolar affective disorder, current episode man*INVALID FOR* Unsteady gait [R26.81] INVALID FOR* S/P ORIF (open reduction internal fixation) fra*INVALID FOR* Hyperparathyroidism (HCC) [E21.3] INVALID FOR* Anemia due to blood loss [D50.0] INVALID FOR* Gastroesophageal reflux disease [K21.9] INVALID FOR* Prescriptions ordered this encounter Disp Refills Start End MELOXICAM 7.5 MG TABLET 12/19/2017 Class: Med Update Route: ORAL Sig: Take 1 tablet by mouth once daily as needed for Pain. With food. OMEPRAZOLE 20 MG CAPSULE,DELAYED REL* 30 c* 5 12/19/2017 Route: ORAL Sig: Take 1 capsule by mouth daily before breakfast. 1/2 hr before meal. Medications Discontinued During This Encounter OXYCODONE HCL (OXYCODONE ORAL) 12/19/2017 Class: Historical Med Route: ORAL Sig: Take 5 mg by mouth. Take 1 tablet every 4 hours as needed *NTE 3GM APAP/24HRS from all sources, Dx: Pain Disc: Reason for discontinue is not on file. COMPOUNDED PRESCRIPTION 1 Ea* 0 08/25/2017 12/19/2017 Class: Print RX Sig: LIFT CHAIR WITH LIFT MECHANISM DX Z96.7 Z87.81 Disc: Reason for discontinue is not on file. meloxicam (MOBIC) 15 mg tablet 30 t* 0 03/28/2017 12/19/2017 Route: ORAL Sig: Take 0.5-1 tablets by mouth once daily. With food. Disc: Reason for discontinue is not on file. benztropine (COGENTIN) 0.5 mg tablet 09/09/2016 12/19/2017 Class: Historical Med Route: ORAL Sig: Take 1 tablet by mouth twice daily as needed. Disc: Reason for discontinue is not on file. Disposition: Return in about 3 months (around 03/21/2018). Follow-up and Disposition History Recorded Encounter Status:Closed by RYAN CHAVIS MD on 12/19/17 THYROID STIM HORMONE Collected: 11/01/2017 Status: F Source: JESS[place] (TSH) 5:27 AM [facility] REPOSITORY TYPE CODE TESTS RESULT OUT OF RANGE REFERENCE UNITS LAB L501.9520 0.358-3.74 uIU/mL Normal TSH 2.76 Performed By: #### L501.9520 #### [facility] [address] [place], [address] ALLERGIES ALLERGIES DATE TYPE / CODE NAME / CODE REACTION SEVERITY SOURCE 05/23/2017 Drug Penicillins/F001 Unknown Unknown Jessica Allergy/[id number]( 800656(RXNORM) [facility] SNOMED [facility]) Hospital Repository 05/23/2017 Drug mold/[id number]( Unknown Unknown Jessica Allergy/[id number]( RXNORM) [facility] SNOMED CT) Hospital Repository 05/23/2017 Miscellaneous IVP DYE Hives Unknown Jessica Allergy/489173102( [facility] SNOMED CT) Hospital Repository 10/14/2010 DRUG/[id number](SNO MOLDS EXTRACT HIVES [place] MED CT) [facility] [place] Repository 04/16/2007 DRUG CONTRAST DYE HIVES [place] INGREDI/[id number]( [facility] SNOMED [facility]) [place] Repository 11/01/2006 Drug PENICILLINS [place] Class/369423791([facility] OMED CT) [place] Repository ENCOUNTERS ENCOUNTERS ADMIT/DISCHARGE ACCOUNT ADMITTING ENCOUNTER LOCATION SOURCE NUMBER CLASS 09/07/2018/09/07/20 [id number] Emergency [address] ing:ED Repository 08/02/2018/08/03/20 [id number] Ambulatory [address] Repository 07/12/[id number] [facility] ing:ERAN Repository R 07/09/2018/07/11/20 [id number] Ambulatory [address] Repository 06/28/2018/06/29/20 [id number] [place], Inpatient [address] ing:NA7Dfca: Repository VF728Amt: 1 06/28/2018 [id number] [place], Ambulatory BMSBuilding:Jm Whitfield [facility] Repository 06/28/2018 [id number] [place], Ambulatory BMSBuilding:Jm [facility] Repository 06/28/2018/06/29/20 [id number] Ambulatory BMSBuilding:Michelle [address] Repository 04/05/[id number] [facility] ing:ERAN Repository R 03/30/2018/03/30/20 [id number] Ambulatory [address] Repository 03/30/2018/03/30/20 [id number] Ambulatory [address] Repository 03/30/2018/04/02/20 [id number] Ambulatory [address] Repository 01/10/[id number] [facility] ing:OLS.CAMRONBU Repository R 01/04/2018 [id number] Ambulatory [facility] ing:OLS.DANBU Repository R 12/29/2017/01/05/20 [id number] Ambulatory [address] Repository 12/22/2017 [id number] Ambulatory [facility] ing:OLS.DANBU Repository R 12/21/2017 [id number] Ambulatory [facility] ing:OLS.DANBU Repository R 12/19/2017/12/20/19 [id number] Ambulatory [address] Repository 12/19/2017/12/20/19 [id number] Ambulatory [address] Repository 12/19/2017/12/20/19 [id number] Ambulatory [address] Repository 11/01/2017 [id number] [facility] ing:OLS.DANBU Repository R PAYERS PAYERS ENCOUNTER GUARANTOR PAYER SUBSCRIBER SOURCE 09/07/2018 ROSALINA Craig [id number] Primary ROSALINA Craig TOPEDOB: [place], Insurance:HUMANA [id number] [address]Ksi: [facility] Number: Repository () [id number] Date:1982-60-[address] [place] [phone]: 09/07/2018 Secondary NOT GIVENUNK [place] Insurance:SELF PAY [facility] Number: Effective Repository Date:2018-09-07 07/12/2018 ROSALINA Craig [id number] Primary ROSALINA Craig TOPEDOB: Jessica [place], Insurance:HUMANA [id number] [address]Lzx: MEDICARE [facility]icy Hospital Number: Repository () [id number] Date:[id number] [address] [place] [phone]: 07/12/2018 Secondary NOT GIVENUNK [place] Insurance:SELF PAY [facility] Number: Effective Repository Date:2018-07-12 06/28/2018 ROSALINA Craig [id number] Primary TED TOPEDOB: Jessica [facility], Insurance:HUMANA [id number] [address]Caf: [facility] Number: Repository () [id number] Date:[id number] [address]NL: 06/28/2018 Secondary [place] GIVENUNK [place] Insurance:SELF PAY [facility] Number: Effective Repository Date:2018-06-27 06/28/2018 TED [id number] Primary TED TOPEDOB: [place] Insurance:HUMANA [id number] [place] [facility] [id number]: [phone]) Number: Repository [phone] () [id number] Date:9969[place]27-[place] [id number]: 06/28/2018 Secondary NOT GIVENUNK [place] Insurance:SELF PAY [facility] Number: Effective Repository Date:2018-06-28 06/28/2018 TED Primary T[place]: [place]HU[place] [id number] [id number] [place] [facility] [place] Number: Repository [phone]: [phone] [id number] [phone] () Date:4516-69-83FPROBERT [place]IL[place] [id number]: 06/28/2018 Secondary NOT GIVENUNK [place] Insurance:SELF PAY [facility] Number: Effective Repository Date:2018-06-28 06/28/2018 TED Primary TED TOP[place]OB: [place] Insurance:HUMANA [id number] Community [id number] [place] [facility] [place] Number: Repository [phone]: 330 [id number] [phone] () Date:[id number] [address] [address]WG: 06/28/2018 Secondary NOT GIVENUNK [place] Insurance:SELF PAY [facility] Number: Effective Repository Date:2018-06-28 04/05/2018 Rosalina Craig [id number] Primary Rosalina Craig TopeDOB: [place] Insurance:HUMANA [id number] [place] [facility] [address]Tel: ([phone]) Number: Repository [phone] () [id number] Date:7007-21-20KV [address] [address]OK: 04/05/2018 Secondary NOT GIVENUNK [place] Insurance:SELF PAY [facility] Number: Effective Repository Date:2018-04-05 01/10/2018 Rosalina Craig [id number] Primary Rosalina Craig [place]DOB: [place] [id number] [place] [facility] [address]Tel: ([phone]) Number: Repository [phone] () [id number] Date:3420-54-74YM [address] [address]LY: 01/10/2018 Secondary NOT GIVENUNK [place] Insurance:SELF PAY [facility] Number: Effective Repository Date:2018-01-10 01/04/2018 Rosalina Craig [id number] Primary Rosalina Craig TopeDOB: [place] [address] Insurance:[place] [id number] [place] [facility] [address]Tel: ([phone]) Number: Repository [phone] () [id number] Date:4596-97-33CO [address] [address]ID: 01/04/2018 Secondary NOT GIVENUNK Jessica Insurance:SELF PAY [facility] Number: Effective Repository Date:2018-01-04 12/22/2017 Rosalina Craig [id number] Primary Rosalina Craig TopeDOB: [place] [address] Insurance:HU[place] [id number] [place] [facility] [address]Erf: ([phone]) Number: Repository [phone] () [id number] Date:0079-23-25OA [address] [place] [address]UP: 12/22/2017 Secondary NOT GIVENUNK [place] Insurance:SELF PAY [facility] Number: Effective Repository Date:2017-12-22 12/21/2017 Rosalina Craig [id number] Primary Rosalina Craig TopeDOB: [place] Insurance:HUMAN [id number] [place] [facility] [address]Hmk: (330) Number: Repository [phone] () [id number] Date:2126-55-57IS [address] [address]IJ: 12/21/2017 Secondary NOT GIVENUNK [place] Insurance:SELF PAY [facility] Number: Effective Repository Date:2017-12-21 11/01/2017 Rosalina Craig [id number] Primary Rosalina Craig TopeDOB: [place] [address] Insurance:[place]UMAN [id number] [place] [facility] [address]Uon: (330) Number: Repository [phone] () [id number] Date:2534-20-92UF [address] [place] [id number]: 11/01/2017 Secondary NOT GIVENUNK [place] Insurance:SELF PAY [facility] Number: Effective Repository Date:2017-11-01
== END 2018-09-07 20:46 | disposition home or self-care (01) ==
PROVIDERS: Emergency Provider Emergency Medicine; Family Provider Internal Medicine; PCP Internal Medicine
DX: R91.8 Other nonspecific abnormal finding of lung field (principal); J90 Pleural effusion, not elsewhere classified; F03.90 Unspecified dementia, unspecified severity, without behavioral disturbance, psychotic disturbance, mood disturbance, and anxiety; I10 Essential (primary) hypertension; E78.00 Pure hypercholesterolemia, unspecified; E21.3 Hyperparathyroidism, unspecified; F31.9 Bipolar disorder, unspecified; Z79.82 Long term (current) use of aspirin; Z79.899 Other long term (current) drug therapy; R06.00 Dyspnea, unspecified
CPT/HCPCS: 71045; 80048; 80164; 83880; 84443; 84484; 85025; 87040; 93005; 99285; A4216